=== PATIENT | female | born 1950 | race Caucasian/White ===

== ENCOUNTER → 2021-04-16 13:30 | Outpatient (CLI) | payer MEDICARE, SELFPAY ==
--- NOTE | ~2021-04-16 | MM_ITS ---
EXAMINATION: MM screening [facility] BI w ade HISTORY: Screening mammogram, family history of breast cancer in her sister. TECHNIQUE: Craniocaudal and mediolateral oblique 3-D tomosynthesis images were obtained and synthetic 2-D images were generated. CAD analysis was submitted and interpreted. COMPARISON: 02/12/2019, 02/05/2016, 02/02/2015, 01/27/2014 BREAST PARENCHYMAL COMPOSITION: There are scattered areas of fibroglandular density. FINDINGS: Scattered benign-appearing calcifications are present. There is no evidence of suspicious m ass, calcification, or architectural distortion to suggest malignancy in either breast. There has bee n no suspicious interval change. IMPRESSION: 1. No mammographic evidence of malignancy. 2. Recommend routine screening mammography in one year. BI-RADS Category 2: Benign finding(s). Reviewed, dictated and finalized at location A.
== END ==
PROVIDERS: PCP Family Medicine
DX: Z12.31 Encounter for screening mammogram for malignant neoplasm of breast (principal)
CPT/HCPCS: 77063; 77067

== ENCOUNTER 2021-09-12 02:32 | Day surgery (SDC) | payer MEDICARE, SELFPAY ==
[2021-09-04 14:30] VITALS: BMI 32.3
--- NOTE | 2021-09-11 13:25 | P.HP_ITS ---
History of Present Illness History of Present Illness Consent: Risks, benefits, and alternatives have been discussed and questions answered. Patient agrees to proceed with procedure. Chief complaint: positive cologuard Narrative: Ruth Andrade is a 71 year old female referred for colon cancer screening. A recent Cologuard test was positive Review of Systems Review of Systems: All systems reviewed & are unremarkable except as noted in HPI and below PMFSH Past Medical History Medical History (Reviewed 07/20/21 @ 15:28 by Kary Abarca [facility]) Atrial fibrillation Chemotherapy induced cardiomyopathy Hodgkin lymphoma Hypothyroid Prediabetes Radiation adverse effect Right hemiparesis Stroke (~03/2016) Surgical History Surgical History History of heart artery stent History of nephrectomy, left (~1975) Family History Family History Father , age 82 Carcinoma of colon Mother , age 80 No problems noted. Sibling , age 48 Cancer Sibling No problems noted. Social History Social History Smoking status: Never smoker Alcohol intake: current Alcohol use details: Occasionally Living arrangements: with family Spiritual care concerns: No Meds Home Medications and Allergies Home Medications Medication Instructions Recorded Confirmed Type apixaban 5 mg tablet 5 mg PO BID 10/02/20 09/04/21 History aspirin 81 mg tablet,delayed 81 mg PO DAILY 10/02/20 09/04/21 History release lisinopril 10 mg tablet 10 mg PO DAILY 10/02/20 09/04/21 History multivitamin with minerals-folic 1 tablet PO DAILY 10/02/20 09/04/21 History acid 200 mcg chewable tablet levothyroxine 137 mcg capsule 137 mcg PO DAILY #90 cap 12/08/20 09/04/21 Rx alirocumab 75 mg/mL subcutaneous 75 mg SUBCUT .COMPLEX 07/20/21 09/04/21 History pen injector enoxaparin 80 mg/0.8 mL 75 mg SUBCUT Q12H #8 ml 09/06/21 Rx subcutaneous syringe Allergies Allergy/AdvReac Type Severity Reaction Status Date / Time Penicillins Allergy Mild Rash Verified 09/04/21 14:28 Exam Resp: Auscultation: clear to auscultation bilaterally Cardio: Rate: regular rate Rhythm: regular rhythm GI: GI Palp: Yes Soft to palpation and No Tenderness to palpation present (GI) Assessment and Plan Assessment and plan (1) Colon cancer screening: Code(s): Z12.11 - Encounter for screening for malignant neoplasm of colon Status: Acute Assessment and Plan: Colonoscopy with possible biopsy or polypectomy or cautery or injection of substances.
[2021-09-12 09:27] VITALS: BP 143/64; PULSE 113; RESP 20; TEMP 36.2; O2SAT 93; BMI 31.6
[2021-09-12] MEDS: LACTATED RINGERS 1,000 ML 150 ML IV CONT (09:30)
--- NOTE | 2021-09-12 09:43 | WPDANESEPPF ---
Anes - Initial Pre Proc Eval Procedure: Operation Date: 09/12/21 10:30 Proposed Procedures p Colonoscopy - Christian Garcia MD Date/Time: 09/12/21 09:43 Surgeon: Christian Garcia MD Pre Op Diagnosis: positive cologuard Patient Data Age: 71 Gender: F Height: 1.52 m Weight: 73.4 kg Last Vital Signs Temp 36.2 C L 09/12/21 09:27 Pulse 113 H 09/12/21 09:27 Resp 20 09/12/21 09:27 BP 143/64 H 09/12/21 09:27 Pulse Ox 93 09/12/21 09:27 Allergies Allergy/AdvReac Type Severity Reaction Status Date / Time Penicillins Allergy Mild Rash Verified 09/12/21 09:25 Home Medications Medication Instructions Recorded Confirmed Type apixaban 5 mg tablet 5 mg PO BID 10/02/20 09/12/21 History aspirin 81 mg tablet,delayed 81 mg PO DAILY 10/02/20 09/12/21 History release lisinopril 10 mg tablet 10 mg PO DAILY 10/02/20 09/12/21 History multivitamin with minerals-folic 1 tablet PO DAILY 10/02/20 09/12/21 History acid 200 mcg chewable tablet levothyroxine 137 mcg capsule 137 mcg PO DAILY #90 cap 12/08/20 09/12/21 Rx alirocumab 75 mg/mL subcutaneous 75 mg SUBCUT .COMPLEX 07/20/21 09/12/21 History pen injector enoxaparin 80 mg/0.8 mL 75 mg SUBCUT Q12H #8 ml 09/06/21 09/12/21 Rx subcutaneous syringe Patient hx anesthesia problems: none Family hx anesthesia problems: none Results Review: All pre-operative results and documents have been reviewed as part of the pre-operative evaluation. [facility] Past Medical History Medical History (Updated 09/12/21 @ 09:48 by Teofilo Livingston MD) Atrial fibrillation CAD (coronary artery disease) Chemotherapy induced cardiomyopathy CHF (congestive heart failure) Hodgkin lymphoma Hypothyroid Obesity (BMI 30.0-34.9) Prediabetes Pulmonary fibrosis Radiation adverse effect Right hemiparesis Stroke (~03/2016) left mca - right hemiparesis Surgical History Surgical History History of heart artery stent History of nephrectomy, left (~1975) Family History Family History Father , age 82 Carcinoma of colon Mother , age 80 No problems noted. Sibling , age 48 Cancer Sibling No problems noted. Social History Social History Smoking status: Never smoker Alcohol intake: current Alcohol use details: Occasionally Living arrangements: with family Spiritual care concerns: No Anes - Eval Final PreProcedure Day of Procedure 09/12/21 09:43 Patient weight: obese Heart: regular rate and rhythm Lungs: clear to auscultation and normal air movement Airway: Mallampati scale class II Neurological: alert and oriented Last oral intake: >/= 8 hours ASA classification: IV Emergent: no Anesthetic plan: proceed Anesthesia type and monitoring: general GIVS Results Review: All pre-operative results and documents have been reviewed as part of the pre-operative evaluation. Informed Consent: The patient's anesthetic plan and its attendant risks and benefits were discussed with the patient/family/POA. Questions were solicited and answers provided to the satisfaction of the patient/family/POA.
[2021-09-12 10:33] VITALS: BP 116/53; PULSE 97; RESP 26; O2SAT 96
[2021-09-12 10:43] VITALS: BP 98/66; PULSE 96; RESP 24; O2SAT 96
[2021-09-12 10:53] VITALS: BP 122/91; PULSE 93; RESP 26; O2SAT 97
== END 2021-09-12 11:06 | disposition home or self-care (01) ==
PROVIDERS: PCP Family Medicine; Visit Provider Internal Medicine Gastroenterology
PROC: 0DJD8ZZ Inspection of Lower Intestinal Tract, Via Natural or Artificial Opening Endoscopic (ICD-10-PCS; CPT 45378; principal; 2021-09-12 10:30)
DX: Z12.11 Encounter for screening for malignant neoplasm of colon (principal); K64.8 Other hemorrhoids; R19.5 Other fecal abnormalities; I48.91 Unspecified atrial fibrillation; E03.9 Hypothyroidism, unspecified; R73.03 Prediabetes; I42.7 Cardiomyopathy due to drug and external agent; I69.351 Hemiplegia and hemiparesis following cerebral infarction affecting right dominant side; I50.9 Heart failure, unspecified; Z95.5 Presence of coronary angioplasty implant and graft; Z79.01 Long term (current) use of anticoagulants; Z79.82 Long term (current) use of aspirin; Z85.71 Personal history of Hodgkin lymphoma; Z90.5 Acquired absence of kidney; E66.9 Obesity, unspecified; Z68.31 Body mass index [BMI] 31.0-31.9, adult
CPT/HCPCS: G0121; J2704; J7120

== ENCOUNTER 2021-11-17 21:23 | Inpatient (IN) | payer MEDICARE, SELFPAY ==
[2021-11-17] VITALS (11 sets, daily range): BP systolic 91–124; BP diastolic 56–70; PULSE 68–108; RESP 18–36; TEMP 36.7; O2SAT 92–100
--- NOTE | ~2021-11-17 | XR_ITS ---
XR chest 1V portable DATE: 11/21/2021 06:02 INDICATION: Respiratory failure TECHNIQUE: Portable AP chest on 11/21/2021 at 0505 hours COMPARISON: 11/20/2021 portable AP chest at 0458 hours 11/17/2021 CTA chest FINDINGS: ET tube in satisfactory position 3.4 cm above nehemias. NG tube tip overlies distal stomach. No central lines. Mild elevation of left diaphragm. Patchy bilateral pulmonary infiltrate and/atelectasis, left greater than right, mildly improved since 11/20/2021. No pleural effusion is evident. No pneumothorax.. IMPRESSION: Patchy bilateral pulmonary infiltrate and/atelectasis, left greater than right, mildly im proved since 11/20/2021 Reviewed, dictated and finalized at location A. CELL TESTER IMPRESSION: Patchy bilateral pulmonary infiltrate and/atelectasis, left greater than right, mildly improved since 11/20/2021
--- NOTE | ~2021-11-17 | XR_ITS ---
XR chest PICC line DATE: 11/25/2021 13:45 INDICATION: PICC line placement TECHNIQUE: Portable AP chest on 11/25/2021 at 1340 hours COMPARISON: 11/25/2021 portable AP chest at 0507 hours FINDINGS: ET tube tip is 1.5 cm above nehemias. [place] range is 2-5 cm. NG tube is situated in the distal body of the stomach. Interval placement of left upper extremity PIC catheter, the tip overlying the superior vena cava. Cardiomegaly. There is pulmonary vascular congestion. There are bilateral pulmonary infiltrates invol ving predominantly the mid and lower lung zones, which may be due to pulmonary edema and/or pneumonia . Small pleural effusions are suggested. No pneumothorax. IMPRESSION: Left upper extremity PIC catheter placement, distal tip overlying superior vena cava Tip of ET tube is 1.5 cm above nehemias; ideal range is 2-5 cm Cardiomegaly, pulmonary vascular congestion, bilateral pulmonary infiltrates, small pleural effusions , suggesting congestive heart failure and pulmonary edema; pneumonia is not excluded. Reviewed, dictated and finalized at Location A. Reviewed, dictated and finalized at location A. RAFT ENGINE MECHANIC OVERHAUL IMPRESSION: Left upper extremity PIC catheter placement, distal tip overlying s uperior vena cava Tip of ET tube is 1.5 cm above nehemias; ideal range is 2-5 cm Cardiomegaly, pulmonary vascular congestion, bilateral pulmonary infiltrates, s mall pleural effusions, suggesting congestive heart failure and pulmonary edema ; pneumonia is not excluded.
--- NOTE | ~2021-11-17 | XR_ITS ---
EXAMINATION: XR chest 1V portable EXAM DATE: 11/27/2021 05:32 INDICATION: SOB TECHNIQUE: Portable AP frontal chest x-ray was obtained. Comparison is made to prior examination from 11/26/2021. FINDINGS: Endotracheal tube tip is 1-2 centimeters above the nehemias. There is a nasogastric tube see n with tip collimated off the study, but below the left hemidiaphragm. There is a left-sided PICC mauricio e with tip projecting over the cavoatrial junction. Elevated left hemidiaphragm, evidence of multisegmental left lower lobe collapse. There is bilateral ill-defined pneumonia or edema. Probable small pleural effusions. There is no pneumothorax suspecte d. Cardiac silhouette is enlarged but stable in size compared to prior exam. There are bony degen erative changes. There is no significant interval change compared to prior exam. IMPRESSION: 1. Line and tube(s) in position. 2. Stable airspace disease and other findings as above. Reviewed, dictated and finalized at location A. ICS PROFESSOR
--- NOTE | ~2021-11-17 | XR_ITS ---
EXAMINATION: XR chest 1V portable EXAM DATE: 11/26/2021 06:02 INDICATION: SOB TECHNIQUE: Portable AP frontal chest x-ray was obtained. Comparison is made to prior examination from 11/25/2021. FINDINGS: Endotracheal tube tip is 1-2 centimeters above the nehemias. There is a nasogastric tube see n with tip collimated off the study, but below the left hemidiaphragm. Elevated left hemidiaphragm, evidence of multisegmental left lower lobe collapse. There is bilateral ill-defined pneumonia or edema.. Probable pleural effusions. There is no pneumothorax suspected. The cardiomediastinal silhouette is prominent but magnified on this AP technique. There are bony de generative changes. There is no significant interval change compared to prior exam. IMPRESSION: 1. Line and tube(s) in position. 2. Stable airspace disease and other findings as above. Reviewed, dictated and finalized at location A. T ATTENDANT
--- NOTE | ~2021-11-17 | XR_ITS ---
XR chest 1V portable DATE: 11/22/2021 06:25 INDICATION: Respiratory failure TECHNIQUE: Portable AP chest on 11/22/2021 at 0546 hours COMPARISON: 11/21/2021 portable AP chest 11/17/2021 CTA chest abdomen pelvis FINDINGS: ET tube in satisfactory position 2.3 cm above nehemias. NG tube in stomach. No central lines. Heart size is not optimally evaluated AP projection because of magnification but is likely enlarged. There is persistent elevation of the left leaf of the diaphragm. Patchy bilateral mid and particularly lower lung zone infiltrates are again noted, more prominent on the left. Diffuse osteopenia. IMPRESSION: No significant change since 11/21/2021 Reviewed, dictated and finalized at location A. TRANSPORTER
--- NOTE | ~2021-11-17 | CT_ITS ---
EXAMINATION: CT shoulder RT wo con EXAM DATE: 11/18/2021 13:07 INDICATION: Intubated ICU patient. Dislocation and Humerus Fracture TECHNIQUE: Spiral CT shoulder RT without contrast was performed. Axial, coronal and sagittal images were reviewed. The dose-length product (DLP) for this examination was 1464 mGy-cm (same dose for errol th this and yesterday's chest CT). The exposure was tailored according to patient size (auto mA expos ure control), and iterative reconstruction (ASIR) was used as additional dose reduction technique. Co rrelation is made to chest x-rays from 11/18 and 11/17. FINDINGS: Chest x-ray from yesterday, 11/17 demonstrated an inferiorly displaced humeral head with res pect to the glenoid. At time of subsequent CT scan performed after this, the humeral head has mild in ferior subluxation without cooper dislocation, reduced in appearance compared to prior chest x-ray. On chest x-ray from 11/18 again patient has mild inferior subluxation without cooper dislocation. This in dicates patient has rotator cuff laxity, may be prone to dislocating or subluxing right humeral head. There is no right shoulder fracture. Patchy right basilar atelectasis and may be superimposed pneumo jaime. There is moderate glenohumeral joint osteoarthritis. IMPRESSION: Right rotator cuff ligamentous laxity with mild humeral head inferior subluxation. No fra nk dislocation or fracture. Reviewed, dictated and finalized at location . RCYCLE MAKER IMPRESSION: Right rotator cuff ligamentous laxity with mild humeral head inferi or subluxation. No cooper dislocation or fracture.
--- NOTE | ~2021-11-17 | XR_ITS ---
XR chest 1V portable DATE: 11/23/2021 06:07 INDICATION: Respiratory failure TECHNIQUE: Portable AP chest on 11/23/2021 at 0502 hours COMPARISON: 11/22/2021 portable AP chest FINDINGS: There is pulmonary vascular congestion or redistribution. There are increased bilateral pre dominantly central and lower lung infiltrates since 11/22/2021 suggesting pulmonary edema. Pneumonia i s not excluded. ET tube tip in satisfactory position 2.3 cm above nehemias. NG tube extends well into the stomach. No c entral lines. Diffuse osteopenia. IMPRESSION: Increased congestion and bilateral pulmonary infiltrates since 11/22/2021 Reviewed, dictated and finalized at location A. ECTOR CANNED FOOD RECONDITIONING
--- NOTE | ~2021-11-17 | XR_ITS ---
XR chest ET placement 11/18/2021 04:41 Indication: Reposition endotracheal tube. Respiratory failure. Procedure: AP portable chest Comparison: Comparison to multiple prior studies sequentially, with oldest reviewed study dated 07/2016. Findings: Endotracheal tube tip approximately 1.7 cm above the nehemias. Cardiomegaly. There is bilater al airspace disease which may represent edema or pneumonia. Possible small left effusion. No pneumoth orax. Impression: 1: Stable bilateral airspace disease which may represent edema or pneumonia. Reviewed, dictated and finalized at location A. INE ASSISTANT Impression: 1: Stable bilateral airspace disease which may represent edema or pneumonia.
--- NOTE | ~2021-11-17 | XR_ITS ---
EXAMINATION: XR chest 1V portable EXAM DATE: 11/30/2021 05:49 INDICATION: Acute respiratory failure, pneumonia. TECHNIQUE: Portable AP frontal chest x-ray was obtained. Comparison is made to prior examination from 11/28/2021. FINDINGS: Endotracheal tube tip is 1 centimeters above the nehemias. There is a nasogastric tube seen with tip collimated off the study, but below the left hemidiaphragm. There is a left-sided PICC line with tip projecting over the SVC. Elevated left hemidiaphragm, evidence of multisegmental left lower lobe collapse. There is moderate a mount of bilateral ill-defined pneumonia or edema. Probable small pleural effusions. There is no pn eumothorax suspected. Cardiac silhouette is enlarged but stable in size compared to prior exam. T here are bony degenerative changes. Over last couple of days, suspect some improvement in the edema or pneumonia. IMPRESSION: 1. ET tube 1 cm above nehemias, could be safely retracted 1-2 cm. 2. Probable mild improvement in bilateral edema or pneumonia. Reviewed, dictated and finalized at location A. RSHED MANAGER
--- NOTE | ~2021-11-17 | XR_ITS ---
EXAMINATION: XR chest 1V portable DATE: 12/01/2021 06:03 INDICATION: Acute respiratory failure. Pneumonia. TECHNIQUE: A single frontal view of the chest was obtained. COMPARISON: Chest single view 11/30/2021, chest CT 11/17/2021 FINDINGS: Again seen is chronic elevation of left hemidiaphragm. There are airspace opacities in erickson hilar regions and lower lung zones. There is a diffuse interstitial pattern, consistent with pulmonar y edema. There is a small left pleural effusion. No pneumothorax. Cardiomegaly is noted. The endotrac heal tube tip is 1.3 cm above the nehemias. The nasogastric tube tip is in the stomach. A left upper ex tremity peripherally inserted central venous catheter (PICC) is seen with tip in the superior vena ca va. IMPRESSION: 1. Stable airspace opacities in the perihilar regions and lower lung zones, consistent with atelectas is versus pneumonia. 2. Mild pulmonary edema. 3. Stable small left pleural effusion. 4. Cardiomegaly. Reviewed, dictated and finalized at location A. ISSIONING MANAGER IMPRESSION: 1. Stable airspace opacities in the perihilar regions and lower lung zones, con sistent with atelectasis versus pneumonia. 2. Mild pulmonary edema. 3. Stable small left pleural effusion. 4. Cardiomegaly.
--- NOTE | ~2021-11-17 | XR_ITS ---
XR chest 1V portable DATE: 11/20/2021 06:31 INDICATION: Respiratory failure TECHNIQUE: Portable AP chest on 11/20/2021 at 0458 hours COMPARISON: 11/19/2021 portable AP chest at 0510 hours 11/17/2021 CTA chest abdomen pelvis FINDINGS: ET tube tip in satisfactory position 3.3 cm above nehemias. NG tube extends at least to the d istal stomach, distal tip extending beyond the inferior margin of the radiograph. There is chronic el evation of the left leaf of the diaphragm. There is patchy infiltrate and/atelectasis in the left mid and lower lung zones and to a lesser extent right lower lung. Diffuse osteopenia. IMPRESSION: Bilateral infiltrate and/atelectasis, left greater than right; little interval change sin ce 11/19/2021 Reviewed, dictated and finalized at location A. DER AND CHIEF EXECUTIVE OFFICER IMPRESSION: Bilateral infiltrate and/atelectasis, left greater than right; shawna le interval change since 11/19/2021
--- NOTE | ~2021-11-17 | XR_ITS ---
EXAMINATION: XR chest 1V portable EXAM DATE: 11/28/2021 06:08 INDICATION: SOB TECHNIQUE: Portable AP frontal chest x-ray was obtained. Comparison is made to prior examination from 11/27/2021. FINDINGS: Endotracheal tube tip is 1-2 centimeters above the nehemias. There is a nasogastric tube see n with tip collimated off the study, but below the left hemidiaphragm. Nasogastric tube redundancy is probably external to the patient. There is a left-sided PICC line with tip projecting over the cavoa trial junction. Elevated left hemidiaphragm, evidence of multisegmental left lower lobe collapse. There is moderate a mount of bilateral ill-defined pneumonia or edema. Probable small pleural effusions. There is no pn eumothorax suspected. Cardiac silhouette is enlarged but stable in size compared to prior exam. T here are bony degenerative changes. There is no significant interval change compared to prior exam. IMPRESSION: 1. Line and tube(s) in position. 2. Stable airspace disease and other findings as above. UCT/DEVICE TECHNOLOGIST Reviewed, dictated and finalized at location A.
--- NOTE | ~2021-11-17 | XR_ITS ---
XR chest 1V portable DATE: 11/25/2021 06:27 INDICATION: Respiratory failure TECHNIQUE: Portable AP chest on 11/25/2021 0507 hours COMPARISON: 11/24/2021 portable AP chest FINDINGS: ET tube in satisfactory position. NG tube in distal stomach. No central lines. There is mild elevation left leaf of the diaphragm. There are patchy bilateral pulmonary infiltrates and/or atelectasis. These are likely relatively stable considering relatively low lung volumes on cur rent examination. No pleural effusion or pulmonary vascular congestion is evident. IMPRESSION: Bilateral pulmonary infiltrates; no significant change Reviewed, dictated and finalized at location A. [facility]
--- NOTE | ~2021-11-17 | XR_ITS ---
EXAMINATION: XR chest ET placement INDICATION: Endotracheal and OG tube placement TECHNIQUE: Portable AP chest at 1504 hours COMPARISON: 0744 hours FINDINGS: The endotracheal tube ends approximately 2.2 cm above the nehemias. The OG tube is in the sto mach. There is unchanged elevation of the left hemidiaphragm. Airspace opacities of the lung bases an d left midlung zone persists without significant change. There is no pneumothorax. No definite pleura l effusion is seen. The cardiomediastinal silhouette is stable. IMPRESSION: 1. Endotracheal and OG tubes in adequate position. 2. Airspace opacities of the lung bases and left midlung zone, consistent with atelectasis versus pne umonia. Reviewed, dictated and finalized at location F. TOR MECHANIC APPRENTICE IMPRESSION: 1. Endotracheal and OG tubes in adequate position. 2. Airspace opacities of the lung bases and left midlung zone, consistent with atelectasis versus pneumonia.
--- NOTE | ~2021-11-17 | XR_ITS ---
XR chest 1V portable DATE: 11/19/2021 05:46 INDICATION: Respiratory failure TECHNIQUE: Portable AP chest on 11/19/2021 at 0514 hours COMPARISON: 11/18/2021 portable AP chest at 0436 hours 11/17/2021 CTA chest FINDINGS: ET tube in satisfactory position 3.2 cm above nehemias. NG tube overlies distal stomach. Cardiomegaly. Aortic calcification. There is elevation of the left leaf of diaphragm. There is persistent left perihilar and lower lung i nfiltrate/atelectasis. There is mild patchy infiltrate in the right mid and lower lung zones. IMPRESSION: No significant change since 11/18/2021 Reviewed, dictated and finalized at location A. L PERSONNEL SERVICES DIRECTOR
--- NOTE | ~2021-11-17 | XR_ITS ---
XR chest ET placement 11/18/2021 04:40 Indication: Endotracheal tube placement with repositioning Procedure: AP portable chest Comparison: Comparison to multiple prior studies sequentially, with oldest reviewed study dated 03/2014. Findings: Endotracheal tube tip at the level of the nehemias directed into the right mainstem bronchus. There is patchy bilateral airspace disease, compatible with pneumonia. Possible small left effusion. No pneumothorax. There is dislocation of the right glenohumeral joint with possible humeral head fra cture. Impression: 1: Endotracheal tube at the level of the nehemias directed towards the right mainstem bronchus. 2: Patchy bilateral airspace disease, compatible with pneumonia. 3: Right shoulder dislocation with possible humeral head fracture. Reviewed, dictated and finalized at location A. ER SKATE ASSEMBLER Impression: 1: Endotracheal tube at the level of the nehemias directed towards the right main stem bronchus. 2: Patchy bilateral airspace disease, compatible with pneumonia. 3: Right shoulder dislocation with possible humeral head fracture.
--- NOTE | ~2021-11-17 | XR_ITS ---
XR abdomen NG/feed tube insert INDICATION: Evaluate G-tube position. TECHNIQUE: Limited KUB perform for evaluating NG tube . COMPARISON: No prior studies for comparison. FINDINGS: NG tube tip in the stomach. Moderate retained fecal material in the colon. Visualized bowel gas pattern is unremarkable. IMPRESSION: 1: NG tube tip in the stomach. Reviewed, dictated and finalized at location A. WEB APPLICATION DEVELOPER
--- NOTE | ~2021-11-17 | CT_ITS ---
EXAMINATION: CTA chest PE abdomen pel DATE: 11/18/2021 10:53 FIELD MECHANIC INDICATION: Chest and abdomen pain. Hypoxia. TECHNIQUE: Computed tomographic angiography (CTA) of the chest, abdomen, and pelvis was performed wit hout and with 100 mL Omnipaque-350 intravenous contrast. The dose-length product was 1464.17 mGy-cm. Maximum intensity projection 3D-reconstructions of the aorta and other arteries were constructed by jai herman technologist on a separate workstation. Automated exposure control and iterative reconstruction technique were employed. COMPARISON: None chest dated 11/17/2021. FINDINGS: CHEST CTA: Study is technically adequate without evidence for pulmonary embolism. There is atherosclerosis of th e aorta. There are enlarged pulmonary arteries consistent with pulmonary hypertension. Small pleural effusions. Elevated left diaphragm suggesting phrenic nerve paralysis. Patchy groundglass opacities w ith more focal areas of consolidation in the lower lobes which may represent combination of pneumonia , edema and/or atelectasis. No pneumothorax. ABDOMEN AND PELVIS CTA: The liver, spleen, pancreas, adrenal glands and right kidney are unremarkable. The left kidney is not identified, possibly surgically absent. Nonobstructive bowel gas pattern. Trace free fluid along the liver margin. There is diverticulosis without evidence for diverticulitis. No abnormal pelvic masses or fluid collections. No significant vascular abnormality. No lymphadenopathy. There is accentuated thoracic kyphosis. There is mild scoliosis. IMPRESSION: 1. Patchy mixed airspace disease in airspace consolidation with small effusions. Differential diagnos is includes pneumonia, edema and/or atelectasis. 2: No evidence for pulmonary embolism. 3: Pulmonary arterial hypertension. Reviewed, dictated and finalized at location A. D MECHANIC IMPRESSION: 1. Patchy mixed airspace disease in airspace consolidation with small effusions . Differential diagnosis includes pneumonia, edema and/or atelectasis. 2: No evidence for pulmonary embolism. 3: Pulmonary arterial hypertension.
--- NOTE | ~2021-11-17 | CT_ITS ---
EXAMINATION: CT brain wo con DATE: 11/17/2021 23:07 INDICATION: Altered mental status TECHNIQUE: Computed tomography (CT) of the head was performed without intravenous contrast. The dose- length product was 605.33 mGy-cm. Automated exposure control and iterative reconstruction technique w ere employed. COMPARISON: CT dated 09/11/2016 FINDINGS: Chronic left lacunar infarctions with encephalomalacia. There is compensatory dilation of t he left lateral ventricle. No acute intracranial hemorrhage, infarction, mass or mass effect. No midl ine shift. There is a mucous retention cyst of the right maxillary sinus. There are scattered mild pe riventricular and subcortical white matter changes, most likely related to small vessel ischemic dise ase (microangiopathy). IMPRESSION: 1. No acute intracranial abnormality. Reviewed, dictated and finalized at location A. R JET OPERATOR
--- NOTE | ~2021-11-17 | XR_ITS ---
XR chest 1V portable DATE: 11/24/2021 07:54 INDICATION: Acute respiratory failure TECHNIQUE: Portable AP chest on 11/24/2021 at 0744 hours COMPARISON: 11/23/2021 portable AP chest at 0502 hours 11/22/2021 portable AP chest 11/17/2021 CTA chest FINDINGS: ET tube in satisfactory position approximately 4.1 cm above nehemias. NG tube tip overlies di stal stomach. Cardiomegaly. Aortic arch calcification. There is elevation of the left diaphragm. There is prominent pulmonary infiltrate and/atelectasis in the left mid and both lower lung zones. Diffuse osteopenia. IMPRESSION: Prominent infiltrate and/atelectasis in the left mid and both lower lung zones ET and NG tubes in satisfactory position Reviewed, dictated and finalized at location A. AL RETARDATION AIDE
--- NOTE | ~2021-11-17 | XR_ITS ---
XR chest 1V portable 11/17/2021 22:09 Indication: Shortness of breath Procedure: AP portable chest Comparison: Comparison to multiple prior studies sequentially, with oldest reviewed study dated 02/2014. Findings: Elevated left diaphragm. Diffuse bilateral airspace disease. No significant effusion or pne umothorax. No acute osseous abnormality. There is a right shoulder dislocation. Cardiomegaly. Impression: 1: Diffuse bilateral airspace disease which may represent edema or pneumonia. 2: Cardiomegaly. 3: Chronically elevated left diaphragm suggesting phrenic nerve paralysis. 4: Right shoulder dislocation. Reviewed, dictated and finalized at location A. TECHNICIAN Impression: 1: Diffuse bilateral airspace disease which may represent edema or pneumonia. 2: Cardiomegaly. 3: Chronically elevated left diaphragm suggesting phrenic nerve paralysis. 4: Right shoulder dislocation.
--- NOTE | 2021-11-17 21:36 | ECG_ITS ---
Measurements Intervals [place] Rate: 109 P: 13 MA: 169 QRS: 35 QRSD: 114 T: 131 QT: 336 QTc: 453 Interpretive Statements SINUS TACHYCARDIA FREQUENT ATRIAL PREMATURE COMPLEXES INTRAVENTRICULAR CONDUCTION DELAY NONSPECIFIC ST & T-WAVE ABNORMALITY- DIFFUSE LEADS BASELINE ARTIFACT- I, II, III, AVR, AVL, AVF, V1-V6 ABNORMAL ECG Electronically Signed On 11-18-2021 7:20:39 BOARD HANDLER by Mike Ferguson D.O.
[2021-11-17] MEDS: ALBUTEROL SULFATE NEB 2.5 MG/0.5 ML INH 5 MG INHALATION (22:02)
[2021-11-17] MEDS: IPRATROPIUM BR 0.02% INH SOLN 0.5 MG/2.5 ML VIAL INHALATION (22:02)
--- NOTE | 2021-11-17 22:07 | PC.NURSE ---
Pt here from home. CVA 5 years ago. Uses wc and cane at home; Right sided residual deficits. reports pt began to slur her words approx 36 hours ago. On arrival, unable to obtain pulse ox in triage. In room, pt sats 54% on RA. Placed on NRB at 15L and ED MD notified. Skin cool and cyanotic. After being on NRB with O2, pt able to be assisted in transfer from to bed. Pt currently on neb tx per RT.
[2021-11-17 22:11] LABS: Basophils Percent Auto 0.3 % (0.2-1.2); Eosinophils Percent Auto 0.2 % (0-4.4); Hematocrit 47.1 % (37.0-47.0); Hemoglobin 14.7 g/dL (12.0-15.0); Immature Granulocyte Absolute 0.04 K/mm3 (0.00-0.031); Immature Granulocyte Percent A 0.3 % (0-0.5); Immature Platelet Fraction Pct 7.5 % (0.9-11.2); Lymphocytes Absolute Auto 1.41 K/mm3 (0.9-3.2); Mean Corpuscular HGB Conc 31.2 g/dl (32-36); Mean Corpuscular Hemoglobin 30.9 pg (26-34); Mean Corpuscular Volume 98.9 fl (80-100); Mean Platelet Volume 11.7 fl (7.4-10.4); Monocytes Absolute Auto 1.5 K/mm3 (0.1-0.6); Monocytes Percent Auto 13.1 % (2.6-8.5); Neutrophils Absolute Auto 8.7 K/mm3 (1.3-6.7); Neutrophils Percent Auto 74.1 % (45.5-73.1); Platelet Count Result 203 k/mm3 (150-375); Red Blood Count 4.76 M/mm3 (4.2-5.4); Red Cell Distribution Width 14.1 % (11.5-14.5); White Blood Count 11.8 K/mm3 (4.5-10.0)
[2021-11-17 22:19] LABS: INR 1.4; Prothrombin Time 16.9 Seconds (11.1-14.7)
[2021-11-17 22:20] LABS: Lactic Acid Reflex 1.6 mmol/L (0.7-2.1); Partial Thromboplastin Time 25.8 SECONDS (22.3-36.8)
[2021-11-17 22:22] LABS: Alanine Aminotransferase 16 U/L (4-35); Albumin Level 4.3 g/dL (3.5-5.1); Alkaline Phosphatase 95 U/L (38-126); Anion Gap 10 mmol/L (8-16); Aspartate Amino Transferase 29 U/L (14-36); Blood Urea Nitrogen 29 mg/dL (7-17); Calcium 9.7 mg/dL (8.4-10.2); Carbon Dioxide 34 mmol/L (22-30); Chloride 100 mmol/L (98-107); Estimated CRCL calculation 55 ml/min; Estimated Glomerular Filt Rate 55; Glucose 129 mg/dL (65-110); Magnesium 1.9 mg/dL (1.6-2.3); Potassium 4.3 mmol/L (3.4-5.0); Sodium 144 mmol/L (137-145)
[2021-11-17 22:24] LABS: pH ABG 7.225 (7.350-7.450)
[2021-11-17 22:25] LABS: Base Excess ABG 3.6 mEq/l (+/-2.0); HCO3 ABG 34.4 mEq/l (22.0-26.0); Oxygen Saturation ABG 99.5 % (95.0-100.0); PCO2 ABG 85.1 mmHg (35.0-45.0); PO2 ABG 266.4 mmHg (80.0-100.0)
[2021-11-17 22:26] LABS: Alveolar/Arterial O2 Gradient 251.4 mmHg; Oxygen Content ABG 20.9 %vol (16.0-22.0); Oxyhemoglobin 97.5 % THb (90.0-100.0); Total Hemoglobin 14.8 g/dL (12.0-18.0)
[2021-11-17 22:27] LABS: Fractional Inspired Oxygen 85 %; Modified Allen's Test Pass; PO2 FiO2 Ratio Arterial Blood 3.13 %; Site Drawn RIGHT RADIAL
[2021-11-17 22:28] LABS: Device NON-REBREATHER MASK
[2021-11-17 22:32] LABS: NT Pro B Type Natriuretic Pept 2210 pg/mL (5-100); Troponin I < 0.012 ng/mL (0.000-0.034)
[2021-11-17 22:46] LABS: SARS-CoV-2 RNA PCR Negative
[2021-11-17 23:41] LABS: Influenza A QL RT-PCR Negative (Negative); Influenza B QL RT-PCR Negative (Negative)
[2021-11-17 23:51] LABS: Add Urine Microscopic? YES; Appearance Urine Clear (Clear); Bacteria Urine Trace /hpf; Bilirubin Urine Negative (Negative); Color Urine Yellow (Yellow); Glucose Urine UA Negative (Negative); Ketones Urine Negative (Negative); Leukocyte Esterase Ur Trace LEU/UL (Negative); Mucus Urine Heavy /lpf; Nitrate Urine Negative (Negative); Protein Urine 2+ mg/dL (Negative); Squamous Epithelial Cell Urine Many /hpf (Few); WBC Urine 21-30 /hpf
--- NOTE | 2021-11-17 23:51 | ED.GENADULT ---
HPI - General Adult General Chief complaint: Shortness of Breath/Dyspnea Stated complaint: ?CVA Time Seen by Provider: 11/17/21 21:36 History of Present Illness HPI narrative: Patient is a 71-year-old female who presents the emergency department with chief complaint of shortness of breath. Patient has history of a CVA and the family noticed that she was not acting her usual self over the last couple of days today they decided to check a pulse ox, and noticed that it was in the 50s. They note she also has an ashen blue in color. The patient was also reporting severe shortness of breath. The patient denies chest pain. Related Data Home Medications Medication Instructions Recorded Confirmed apixaban 5 mg tablet 5 mg PO BID 10/02/20 09/12/21 aspirin 81 mg tablet,delayed 81 mg PO DAILY 10/02/20 09/12/21 release lisinopril 10 mg tablet 10 mg PO DAILY 10/02/20 09/12/21 multivitamin with minerals-folic 1 tablet PO DAILY 10/02/20 09/12/21 acid 200 mcg chewable tablet alirocumab 75 mg/mL subcutaneous 75 mg SUBCUT .COMPLEX 07/20/21 09/12/21 pen injector Allergies Allergy/AdvReac Type Severity Reaction Status Date / Time Penicillins Allergy Mild Rash Verified 11/17/21 22:54 Review of Systems Review of Systems: A 10 system review of systems was completed on the patient and is negative except for what is stated in the HPI. Nursing and ancillary documentation was reviewed. [facility] Past Medical History Medical History (Updated 11/18/21 @ 01:42 by Emil Batista MD) CAD (coronary artery disease) (2012) 1 drug-eluting stent to the RCA Chemotherapy induced cardiomyopathy CHF (congestive heart failure) CVA (cerebral vascular accident) (03/2016) Status post tPA and revascularization at [place]. With occlusion of the left internal carotid artery, bifurcation, left MCA status post thrombectomy with persistent occlusion of the A2 segment of the RHONDA Deep vein thrombosis (DVT) of calf muscle vein of left lower extremity (03/2016) Diaphragmatic paralysis Left Hodgkin lymphoma Hypothyroid Secondary to radiation therapy Obesity (BMI 30.0-34.9) Paroxysmal A-fib (04/2016) Prediabetes Pulmonary fibrosis Secondary to radiation therapy Pulmonary hypertension Retinal tear Right hemiparesis Vitreous hemorrhage Surgical History Surgical History (Updated 11/18/21 @ 01:02 by Jayshree Bone DO) History of heart artery stent (09/2013) RCA History of nephrectomy, left (~1975) Family History Family History (Updated 11/18/21 @ 01:05 by Jayshree Bone DO) Father , age 82 Carcinoma of colon Diabetes mellitus Mother , age 80 CHF (congestive heart failure) Dementia Sibling , age 48 Breast cancer Social History Social History (Updated 11/18/21 @ 01:06 by Jayshree Bone DO) Social History: Patient lives at home with her . Primary care physician: Dr. Raymon Aiken Code status: Full code Surrogate decision maker: Smoking status: Never smoker Alcohol intake: current Alcohol use details: Occasionally Spiritual care concerns: No Exam Narrative: GENERAL: ill-appearing, well-nourished, moderate respiratory distress. HEAD: Normocephalic, atraumatic. EYES: PERRLA and EOMI. ENT: Nares clear, no rhinorrhea or epistaxis. Mucous membranes moist. NECK: Supple. CHEST: Clear to auscultation. No respiratory distress. HEART: Regular rate and rhythm. No murmur heard. Normal peripheral pulses. ABDOMEN: Soft, nontender, nondistended, normal active bowel sounds. EXTREMITIES: Normal range of motion. No edema. SKIN: Warm, dry, no rash. Pale, ashen. NEURO: No focal deficits. Alert and oriented x3. PSYCH: Normal mood and affect. Course Course Emergency Course: EKG sinus tachycardia rate [address] elevation or ST depression Vital Signs Vital signs: Vital Signs Temperature 36.7 C 11/17/21 21:41 Pulse Rate 108 H 11/17/21 21:41 Respi
[2021-11-18] VITALS (70 sets, daily range): BP systolic 91–132; BP diastolic 57–106; PULSE 69–125; RESP 14–26; TEMP 36.3–36.9; O2SAT 93–100; BMI 36.6
[2021-11-18 00:01] LABS: Blood Urine Negative (Negative); Specific Grav Ur 1.025 (1.001-1.035)
--- NOTE | 2021-11-18 00:51 | PM.IMHP ---
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 Patient's reports that the patient has been having progressive weakness and slurred speech for the last 36 hours. She has also become progressively more somnolent. He reports that she usually sleeps in a recliner and has snoring respirations at night. She usually ends up sitting somewhat forward with her head falling to the side. He has noticed that she has had increased work of breathing over the last day and a half as well. He denies her having any cough fever or chills. She has not been complaining of any chest pain. She does have chronic edema of her right lower extremity that is unchanged from baseline. He reports that his edema is been present since she had her CVA in 2016. She also has a distant history of a DVT in the soleus and 2016. She is on chronic anticoagulation with Eliquis. He wanted to bring the patient to the hospital it the day before but she had planned with her sister today. He brought her into the ER today after her plans with her sister when she became so somnolent that she could not hold her eyes open. He reports that she is able to ambulate with a walker and has some significant footdrop. She has not had any recent falls or head trauma. She had a CT scan of the brain in the ER which demonstrated no acute process. He had chest x-ray which demonstrated markedly elevated left hemidiaphragm the patient has chronic paralysis of the left hemidiaphragm. CT of the chest abdomen pelvis were performed to rule out possible diaphragmatic hernia. No evidence of diaphragmatic hernia noted but possible bilateral lower lobe pneumonia. The patient's reports the patient does have a CPAP at home but she does not use it as much as she should. She has not had a repeat sleep study in at least 15 years. Review of Systems Review of Systems: ROS unobtainable: Yes unobtainable due to medical condition (Hypercapnic respiratory failure) and unobtainable due to mental status [facility] Past Medical History Medical History (Updated 11/18/21 @ 05:28 by Jayshree Bone DO) CAD (coronary artery disease) (2012) 1 drug-eluting stent to the RCA Chemotherapy induced cardiomyopathy CHF (congestive heart failure) CVA (cerebral vascular accident) (03/2016) Status post tPA and revascularization at [place]. With occlusion of the left internal carotid artery, bifurcation, left MCA status post thrombectomy with persistent occlusion of the A2 segment of the RHONDA Deep vein thrombosis (DVT) of calf muscle vein of left lower extremity (03/2016) Diaphragmatic paralysis Left Hodgkin lymphoma Hypothyroid Secondary to radiation therapy Obesity (BMI 30.0-34.9) Paroxysmal A-fib (04/2016) Prediabetes Pulmonary fibrosis Secondary to radiation therapy Pulmonary hypertension Retinal tear Right hemiparesis Vitreous hemorrhage Surgical History Surgical History (Updated 11/18/21 @ 06:09 by Jayshree Bone DO) History of heart artery stent (09/2013) RCA History of nephrectomy, left (~1975) Due to large kidney stone Family History Family History (Updated 11/18/21 @ 01:05 by Jayshree Bone DO) Father , age 82 Carcinoma of colon Diabetes mellitus Mother , age 80 CHF (congestive heart failure) Dementia Sibling , age 48 Breast cancer Social History Social History (Updated 11/18/21 @ 06:10 by Jayshree Bone DO) Social History: Patient lives at
[2021-11-18 00:53] LABS: Troponin I < 0.012 ng/mL (0.000-0.034)
[2021-11-18] MEDS: methylPREDNISolone SOD SUCC 125 MG VIAL IV PUSH (00:53)
[2021-11-18 01:10] LABS: pH ABG 7.228 (7.350-7.450)
[2021-11-18 01:11] LABS: Base Excess ABG 4.6 mEq/l (+/-2.0); HCO3 ABG 35.3 mEq/l (22.0-26.0); PCO2 ABG 86.7 mmHg (35.0-45.0); PO2 ABG 75.5 mmHg (80.0-100.0)
[2021-11-18 01:12] LABS: Oxygen Saturation ABG 91.7 % (95.0-100.0); Total Hemoglobin 14.3 g/dL (12.0-18.0)
[2021-11-18 01:13] LABS: Oxygen Content ABG 18.4 %vol (16.0-22.0)
[2021-11-18 01:14] LABS: Fractional Inspired Oxygen 40 %; Modified Allen's Test Pass; Oxyhemoglobin 91.3 % THb (90.0-100.0); PO2 FiO2 Ratio Arterial Blood 1.89 %; Site Drawn LEFT RADIAL
[2021-11-18 01:15] LABS: Device NON-INVASIVE VENT; Non-Invasive Expiratory Pressure 6 CMH2O; Non-Invasive Inspiratory Pressure 12 CMH2O; Non-Invasive Vent Rate 12 /MIN
[2021-11-18 03:58] LABS: pH ABG 7.233 (7.350-7.450)
[2021-11-18 03:59] LABS: Alveolar/Arterial O2 Gradient 99.9 mmHg; Base Excess ABG 5.5 mEq/l (+/-2.0); HCO3 ABG 36.5 mEq/l (22.0-26.0); Oxygen Saturation ABG 93.7 % (95.0-100.0); PCO2 ABG 88.5 mmHg (35.0-45.0); PO2 ABG 83.5 mmHg (80.0-100.0); Total Hemoglobin 14.6 g/dL (12.0-18.0)
[2021-11-18 04:00] LABS: Methemoglobin ABG 0.2 %THb (0-1.5); Oxygen Content ABG 19.2 %vol (16.0-22.0); Oxyhemoglobin 93.7 % THb (90.0-100.0); PO2 FiO2 Ratio Arterial Blood 2.09 %; Reduced Hemoglobin 5.5 %THb (0-5.0)
[2021-11-18 04:01] LABS: Fractional Inspired Oxygen 40 %; Modified Allen's Test Pass; Site Drawn LEFT RADIAL
[2021-11-18 04:02] LABS: Device BIPAP
--- NOTE | 2021-11-18 04:05 | PC.NURSE ---
Dr. Bone in room. Plans to intubate pt. 20 etomidate ivp given. 100 succs ivp given. 25 at teeth 7.5 size tube.
--- NOTE | 2021-11-18 04:24 | PC.NURSE ---
2 mg versed given ivp for sedation s/p intubation.
[2021-11-18] MEDS: MIDAZOLAM HCL (*CRX) 2 MG/2 ML VIAL IV PUSH (04:25)
[2021-11-18] MEDS: ROCURONIUM BROMIDE 50 MG/5 ML VIAL IV PUSH (04:37)
--- NOTE | 2021-11-18 04:40 | PC.NURSE ---
23 at teeth. tube pulled back per verbal order from dr livingston
[2021-11-18] MEDS: SODIUM CHLORIDE 0.9% IV 1,000 ML 999 ML IV CONT (04:46)
[2021-11-18] MEDS: MIDAZOLAM 100MG/NS 100ML(*CRX) 100 MG/100 ML BAG IV CONT (04:53)
[2021-11-18] MEDS: FENTANYL 2,500MCG/NS250ML(*CRX 2,500 MCG/250 ML BAG IV CONT (04:59)
--- NOTE | 2021-11-18 05:23 | PC.NURSE ---
pt to ICU 4. Report to german hernandez.
[2021-11-18 05:29] LABS: Alveolar/Arterial O2 Gradient 234.3 mmHg; Base Excess ABG 5.7 mEq/l (+/-2.0); Carboxyhemoglobin 0.9 % THb (0-2.0); Fractional Inspired Oxygen 50 %; HCO3 ABG 27.3 mEq/l (22.0-26.0); Methemoglobin ABG 0.1 %THb (0-1.5); Oxygen Content ABG 19.3 %vol (16.0-22.0); Oxygen Saturation ABG 97.7 % (95.0-100.0); Oxyhemoglobin 96.4 % THb (90.0-100.0); PCO2 ABG 31.1 mmHg (35.0-45.0); PO2 ABG 87.2 mmHg (80.0-100.0); PO2 FiO2 Ratio Arterial Blood 1.74 %; Reduced Hemoglobin 2.6 %THb (0-5.0); Total Hemoglobin 14.2 g/dL (12.0-18.0)
[2021-11-18 05:31] LABS: Device VENTILATOR; Modified Allen's Test Pass; Site Drawn LEFT BRACHIAL; pH ABG 7.562 (7.350-7.450)
[2021-11-18 05:32] LABS: Arterial Blood Gas PEEP 5 cmH2O; Arterial Blood Gas Tidal Volume 350 ml; Arterial Blood Gas Vent Mode CMV; Arterial Blood Gas Ventilator rate 24 /MIN
--- NOTE | 2021-11-18 06:13 | WPDPROCEDUR ---
Procedures Intubation Intubation Date: 11/18/21 Intubation Time: 04:09 Sedative: etomidate Mg given: 20 Paralytic: succinylcholine Mg given: 100 Laryngoscope: fiber optic video scope ET tube size: 7.5 Tube secured depth (cm): 25 Tube secured location: teeth (Upper teeth) Tube placement confirmation: visualized tube passing through cords, equal breath sounds bilaterally, no breath sounds over epigastrium and confirmation by capnometry Patient tolerated procedure: well Intubation complications: none Additional comments: Chest x-ray was ordered to confirm ET tube placement. ET tube is in the right mainstem bronchus. ET tube pulled back 3 cm to 22 at the upper teeth. Repeat chest x-ray demonstrated ET tube 2.2 cm from nehemias.
--- NOTE | 2021-11-18 06:48 | ADMGEN ---
This patient, Ruth Andrade, was admitted to Intensive Care Unit-4 at 0548. Patient/family oriented to hospital policies and general routines including ID bracelet, bed and alarms, visiting hours, pain management, procedures, bathroom and other care routines, personal items, smoking policy, room service/diet, and visiting hours. Information on how to activate the Rapid Response Team has been discussed. Patient/Family are encouraged to report perceived risks to care and to ask questions if they do not understand what they are told or what they should do.
[2021-11-18 07:21] LABS: Hematocrit 43.2 % (37.0-47.0); Hemoglobin 13.7 g/dL (12.0-15.0); Mean Corpuscular HGB Conc 31.7 g/dl (32-36); Mean Corpuscular Hemoglobin 31.1 pg (26-34); Mean Corpuscular Volume 98.2 fl (80-100); Mean Platelet Volume 11.3 fl (7.4-10.4); Platelet Count Result 160 k/mm3 (150-375); Red Cell Distribution Width 13.9 % (11.5-14.5); White Blood Count 9.5 K/mm3 (4.5-10.0)
[2021-11-18 07:40] LABS: Anion Gap 9 mmol/L (8-16); Blood Urea Nitrogen 25 mg/dL (7-17); Calcium 9.2 mg/dL (8.4-10.2); Carbon Dioxide 31 mmol/L (22-30); Chloride 102 mmol/L (98-107); Estimated CRCL calculation 68 ml/min; Estimated Glomerular Filt Rate > 60; Glucose 149 mg/dL (65-110); Potassium 4.3 mmol/L (3.4-5.0); Sodium 142 mmol/L (137-145)
[2021-11-18] MEDS: IPRATROPIUM BR 0.02% INH SOLN 0.5 MG/2.5 ML VIAL INHALATION ×3 (08:50→19:26)
[2021-11-18] MEDS: ALBUTEROL SULFATE NEB 2.5 MG/0.5 ML INH 5 MG INHALATION ×3 (08:50→19:26)
[2021-11-18 09:19] LABS: Alveolar/Arterial O2 Gradient 116.4 mmHg; Base Excess ABG 3.6 mEq/l (+/-2.0); Fractional Inspired Oxygen 30 %; Oxygen Content ABG 19.2 %vol (16.0-22.0); Oxygen Saturation ABG 94.9 % (95.0-100.0); Oxyhemoglobin 94.2 % THb (90.0-100.0); PCO2 ABG 29.2 mmHg (35.0-45.0); PO2 ABG 63.2 mmHg (80.0-100.0); PO2 FiO2 Ratio Arterial Blood 2.11 %; Total Hemoglobin 14.5 g/dL (12.0-18.0)
[2021-11-18 09:22] LABS: Device VENTILATOR; Modified Allen's Test Pass; Site Drawn LEFT RADIAL; pH ABG 7.551 (7.350-7.450)
[2021-11-18 09:23] LABS: Arterial Blood Gas PEEP 5 cmH2O; Arterial Blood Gas Tidal Volume 350 ml; Arterial Blood Gas Vent Mode CMV; Arterial Blood Gas Ventilator rate 18 /MIN
--- NOTE | 2021-11-18 09:24 | WPDCNINT ---
Assessment and Plan Assessment and plan (1) Acute and chronic respiratory failure: Code(s): J96.20 - Acute and chronic respiratory failure, unspecified whether with hypoxia or hypercapnia Status: Acute Assessment and Plan: Acute on chronic Respiratory failure which is multifactorial and is secondary to left diaphragmatic paralysis, pneumonia, obstructive sleep apnea which is untreated and pulmonary fibrosis I reviewed her ABG this morning and decreased her minute ventilation further to rate of 14 tidal volume 300 Continue full mechanical ventilation support to prevent hypoxemia/hypercarbia and end organ damage. ABG and CT reviewed reviewed Continue empiric Rocephin and azithromycin. Add Flagyl to cover for aspiration Low tidal volume ventilation strategy to prevent volutrauma Will attempt SBT when ready to wean. Bronchodilators blood culture sent (2) Pneumonia: Qualifiers: Laterality: bilateral Lung location: lower lobe of lung Pneumonia type: due to unspecified organism Qualified Code(s): J18.9 - Pneumonia, unspecified organism Code(s): J18.9 - Pneumonia, unspecified organism Status: Acute Assessment and Plan: see above (3) Pulmonary fibrosis: Code(s): J84.10 - Pulmonary fibrosis, unspecified Status: Acute Assessment and Plan: see above (4) Obstructive sleep apnea: Code(s): G47.33 - Obstructive sleep apnea (adult) (pediatric) Status: Acute Assessment and Plan: currently intubated (5) Atrial fibrillation: Qualifiers: Atrial fibrillation type: paroxysmal Qualified Code(s): I48.0 - Paroxysmal atrial fibrillation Code(s): I48.91 - Unspecified atrial fibrillation Status: Acute Assessment and Plan: currently in sinus rhythm continue apixaban (6) CAD (coronary artery disease): Onset Date: 2012 Code(s): I25.10 - Atherosclerotic heart disease of [place] coronary artery without angina pectoris Status: Acute Assessment and Plan: continue apixaban resume aspirin (7) Right hemiparesis: Code(s): G81.91 - Hemiplegia, unspecified affecting right dominant side Status: Acute Assessment and Plan: on aspirin and apixaban for past CVA for secondary prevention (8) Hypothyroid: Qualifiers: Hypothyroidism type: acquired Qualified Code(s): E03.9 - Hypothyroidism, unspecified Code(s): E03.9 - Hypothyroidism, unspecified Status: Acute Assessment and Plan: continue levothyroxine check TSH (9) Shoulder dislocation: Code(s): S43.006A - Unspecified dislocation of unspecified shoulder joint, initial encounter Status: Acute Assessment and Plan: chest x-ray show right glenohumeral joint dislocation with humeral head fracture I spoke to patient's and he states that this may be old although he is not sure. Patient has had couple of falls and since she has paralyzed right side and does not uses the right side injury may not have been apparent. Patient has a CT chest abdomen pelvis done last night which is pending. I will wait for the report and see if I can get better picture on that. If unable to, then will repeat a shoulder CT. Treatment will be affected by the fact that patient is paralyzed on right and does not uses her right side. Additional Plan DVT prophylaxis - Pepcid Stress ulcer prophylaxis - apixaban Nutrition - start Tube Feeds Code Status - Full Code I spoke to patient's Mike Andrade by phone. I updated him with patient's current status including findings on x-ray, current treatment plan and answered all their questions. Total Critical Care Time - 35 minutes Due to a high probability of clinically significant, life threatening deterioration, the patient required my highest level of preparedness to intervene emergently and I personally spent this critical care time directly an
[2021-11-18] MEDS: FAMOTIDINE 20 MG/2 ML VIAL IV PUSH ×2 (10:36→20:37)
[2021-11-18] MEDS: LEVOTHYROXINE SODIUM 112 MCG TABLET FEED TUBE (10:37)
[2021-11-18] MEDS: APIXABAN 5 MG TABLET FEED TUBE ×2 (10:37→20:37)
[2021-11-18] MEDS: LEVOTHYROXINE SODIUM 25 MCG TABLET PO (10:37)
[2021-11-18] MEDS: metroNIDAZOLE 250 MG TABLET 500 MG FEED TUBE ×2 (12:48→17:37)
[2021-11-18] MEDS: MINERAL OIL/WHITE PETROLATUM OINTMENT 1 APPLIC EACH EYE ×2 (12:53→20:37)
[2021-11-18] MEDS: SODIUM CHLORIDE 0.9% IV 1,000 ML 75 ML IV CONT (12:57)
--- NOTE | 2021-11-18 14:39 | PM.IMPN ---
Progress Note: A&P Assessment and Plan (1) Acute respiratory failure with hypoxia and hypercapnia: Code(s): J96.01 - Acute respiratory failure with hypoxia; J96.02 - Acute respiratory failure with hypercapnia Status: Acute Assessment and Plan: Patient has acute hypercapnic hypoxic respiratory failure. She likely has some underlying chronic hypercapnic respiratory failure with her untreated obstructive sleep apnea and history of radiation fibrosis. Intubated and ventilator ventilator management by ICU MD (2) Pneumonia: Qualifiers: Laterality: bilateral Lung location: lower lobe of lung Pneumonia type: due to unspecified organism Qualified Code(s): J18.9 - Pneumonia, unspecified organism Code(s): J18.9 - Pneumonia, unspecified organism Status: Acute Assessment and Plan: CT suggest possible pneumonia. Pt currently on Rocephin and azithromycin. Blood cultures have been ordered. 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 Pt brought in for acute respiratory failure secondary to pneumonia. Intubated on ventilator in ICU. Admitted this morning. Review of Systems Review of Systems: ROS unobtainable: Yes unobtainable due to medical condition Exam Const: General: other (pt is intubated ) Resp: Other: Bilateral crackles at bases Cardio: Rate: regular rate Rhythm: regular rhythm GI: Inspection: normal to inspection GI Palp: No abdominal tenderness, No Guarding due to palpation present (GI) and No Hepatomegaly present Auscultation: normal bowel sounds Objective Data Vital Signs Vital Signs: Vital Signs - 24 hr 11/17/21 21:41 11/17/21 22:02 11/17/21 22:03 Temperature 36.7 C Pulse Rate 108 H 90 100 Respiratory Rate 36 H 25 H Blood Pressure 91/56 L Pulse Oximetry 99 96 11/17/21 22:45 11/17/21 22:48 11/17/21 22:52 Temperature 36.7 C Pulse Rate 94 68 Respiratory Rate 24 H 20 Blood Pressure 124/70 Pulse Oximetry 97 96 100 11/17/21 23:17 11/17/21 23:32 11/17/21 23:45 Temperature Pulse Rate 97 95 Respiratory Rate 23 H 18 Blood Pressure Pulse Oximetry 93 92 95 11/17/21 23:46 11/17/21 23:47 11/18/21 00:04 Temperature Pulse Rate 93 95 92 Respiratory Rate 24 H 21 H 20 Blood Pressure 112/62 Pulse Oximetry 96 98 94 11/18/21 00:31 11/18/21 00:32 11/18/21 00:59 Temperature Pulse Rate 96 97 86 Respiratory Rate 21 H 23 H 21 H Blood Pressure 117/59 L Pulse Oximetry 99 11/18/21 01:00 11/18/21 01:01 11/18/21 01:19 Temperature Pulse Rate 86 84 82 Respiratory Rate 22 H 22 H 22 H Blood Pressure 112/61 Pulse Oximetry 98 99 97 11/18/21 01:30 11/18/21 01:43 11/18/21 01:45 Temperature Pulse Rate 79 84 89 Respiratory Rate 24 H 24 H 20 Blood Pressure Pulse Oximetry 98 99 98 11/18/21 01:46 11/18/21 01:47 11/18/21 02:04 Temperature Pulse Rate 89 89 Respiratory Rate 23 H 16 Blood Pressure 94/60 L Pulse Oximetry 98 98 98 11/18/21 02:28 11/18/21 02:29 11/18/21 02:30 Temperature Pulse Rate 93 90 93 Respiratory Rate 26 H 25 H 24 H Blood Pressure 101/63 Pulse Oximetry 97 97 97 11/18/21 02:48 11/18/21 03:00 11/18/21 03:01 Temperature Pulse Rate 96 83 82 Respiratory Rate 24 H 24 H 24 H Blood Pressure 96/59 L Pulse Oximetry 93 97 98 11/18/21 03:02 11/18/21 03:15 11/18/21 03:16 Temperature Pulse Rate 83 82 81 Respiratory Rate 24 H 24 H 24 H Blood Pressure 93/57 L Pulse Oximetry 97 96 97 11/18/21 03:17 11/18/21 03:30
[2021-11-19] VITALS (33 sets, daily range): BP systolic 85–123; BP diastolic 55–78; PULSE 67–105; RESP 14–43; TEMP 35.7–36.9; O2SAT 78–99; BMI 36.6
[2021-11-19] MEDS: metroNIDAZOLE 250 MG TABLET 500 MG FEED TUBE ×4 (00:18→16:45)
[2021-11-19] MEDS: SODIUM CHLORIDE 0.9% IV 1,000 ML 75 ML IV CONT (00:54)
[2021-11-19 05:27] LABS: Alveolar/Arterial O2 Gradient 96.2 mmHg; Base Excess ABG 2.2 mEq/l (+/-2.0); Carboxyhemoglobin 0.6 % THb (0-2.0); Fractional Inspired Oxygen 30 %; HCO3 ABG 27.3 mEq/l (22.0-26.0); Methemoglobin ABG 0.1 %THb (0-1.5); Oxygen Content ABG 19.3 %vol (16.0-22.0); Oxygen Saturation ABG 93.2 % (95.0-100.0); Oxyhemoglobin 92.2 % THb (90.0-100.0); PCO2 ABG 43.9 mmHg (35.0-45.0); PO2 ABG 66.1 mmHg (80.0-100.0); Reduced Hemoglobin 7.1 %THb (0-5.0); Total Hemoglobin 14.9 g/dL (12.0-18.0); pH ABG 7.411 (7.350-7.450)
[2021-11-19 05:43] LABS: Device VENTILATOR; Modified Allen's Test Pass; Site Drawn RIGHT RADIAL
[2021-11-19 05:44] LABS: Arterial Blood Gas PEEP 5 cmH2O; Arterial Blood Gas Tidal Volume 300 ml; Arterial Blood Gas Vent Mode CMV; Arterial Blood Gas Ventilator rate 14 /MIN
[2021-11-19] MEDS: LEVOTHYROXINE SODIUM 25 MCG TABLET PO (07:43)
[2021-11-19] MEDS: LEVOTHYROXINE SODIUM 112 MCG TABLET FEED TUBE (07:43)
[2021-11-19] MEDS: FAMOTIDINE 20 MG/2 ML VIAL IV PUSH ×2 (07:44→20:30)
[2021-11-19] MEDS: APIXABAN 5 MG TABLET FEED TUBE ×2 (07:44→20:30)
[2021-11-19] MEDS: MINERAL OIL/WHITE PETROLATUM OINTMENT 1 APPLIC EACH EYE ×2 (07:45→20:30)
[2021-11-19] MEDS: methylPREDNISolone SOD SUCC 125 MG VIAL 60 MG IV PUSH (07:45)
[2021-11-19 07:52] LABS: Hematocrit 44.9 % (37.0-47.0); Hemoglobin 14.6 g/dL (12.0-15.0); Mean Corpuscular HGB Conc 32.5 g/dl (32-36); Mean Corpuscular Hemoglobin 30.8 pg (26-34); Mean Corpuscular Volume 94.7 fl (80-100); Mean Platelet Volume 11.8 fl (7.4-10.4); Platelet Count Result 184 k/mm3 (150-375); Red Blood Count 4.74 M/mm3 (4.2-5.4); White Blood Count 14.4 K/mm3 (4.5-10.0)
[2021-11-19 08:00] LABS: Anion Gap 9 mmol/L (8-16); Blood Urea Nitrogen 30 mg/dL (7-17); Calcium 9.2 mg/dL (8.4-10.2); Carbon Dioxide 29 mmol/L (22-30); Chloride 102 mmol/L (98-107); Estimated CRCL calculation 61 ml/min; Estimated Glomerular Filt Rate > 60; Glucose 112 mg/dL (65-110); Potassium 3.8 mmol/L (3.4-5.0); Sodium 140 mmol/L (137-145)
[2021-11-19 08:03] LABS: Alanine Aminotransferase 17 U/L (4-35); Albumin Level 3.5 g/dL (3.5-5.1); Alkaline Phosphatase 82 U/L (38-126); Anion Gap 9 mmol/L (8-16); Aspartate Amino Transferase 25 U/L (14-36); Bilirubin,Total 1.1 mg/dL (0.2-1.3); Blood Urea Nitrogen 30 mg/dL (7-17); Calcium 9.3 mg/dL (8.4-10.2); Carbon Dioxide 29 mmol/L (22-30); Chloride 102 mmol/L (98-107); Estimated CRCL calculation 61 ml/min; Estimated Glomerular Filt Rate > 60; Glucose 111 mg/dL (65-110); Magnesium 1.9 mg/dL (1.6-2.3); Potassium 3.9 mmol/L (3.4-5.0); Sodium 140 mmol/L (137-145)
[2021-11-19] MEDS: ALBUTEROL SULFATE NEB 2.5 MG/0.5 ML INH 5 MG INHALATION ×3 (08:54→20:15)
[2021-11-19] MEDS: IPRATROPIUM BR 0.02% INH SOLN 0.5 MG/2.5 ML VIAL INHALATION ×3 (08:55→20:15)
[2021-11-19 09:54] LABS: Alveolar/Arterial O2 Gradient 82.5 mmHg; Base Excess ABG 2.5 mEq/l (+/-2.0); Fractional Inspired Oxygen 30 %; HCO3 ABG 29.3 mEq/l (22.0-26.0); Oxygen Content ABG 19.4 %vol (16.0-22.0); Oxygen Saturation ABG 92.6 % (95.0-100.0); Oxyhemoglobin 91.3 % THb (90.0-100.0); PCO2 ABG 53.7 mmHg (35.0-45.0); PO2 ABG 68.3 mmHg (80.0-100.0); PO2 FiO2 Ratio Arterial Blood 2.28 %; Total Hemoglobin 15.1 g/dL (12.0-18.0); pH ABG 7.355 (7.350-7.450)
[2021-11-19 09:55] LABS: Site Drawn LEFT RADIAL
[2021-11-19 09:56] LABS: Arterial Blood Gas PEEP 5 cmH2O; Arterial Blood Gas Pressure Support 5 cmH2O; Arterial Blood Gas Vent Mode SPONTANEOUS; Device VENTILATOR; Modified Allen's Test Pass
[2021-11-19 09:59] LABS: Expiratory Pressure 6 cmH2O; Inspiratory Pressure 16 cmH2O
--- NOTE | 2021-11-19 11:11 | WPDINTPN ---
Progress Note: A&P Assessment and Plan (1) Acute and chronic respiratory failure: Code(s): J96.20 - Acute and chronic respiratory failure, unspecified whether with hypoxia or hypercapnia Status: Acute Assessment and Plan: Acute on chronic Respiratory failure which is multifactorial and is secondary to left diaphragmatic paralysis, pneumonia, obstructive sleep apnea which is untreated and pulmonary fibrosis I performed a weaning trial this morning but patient failed due to very low tidal volumes which were less than 200 cc and eventual increase in out of 6 PI Continue full mechanical ventilation support to prevent hypoxemia/hypercarbia and end organ damage. ABG and CT reviewed reviewed Continue empiric Rocephin, Flagyl and azithromycin to cover for aspiration and community-acquired pneumonia Low tidal volume ventilation strategy to prevent volutrauma daily SBT attempts Bronchodilators blood culture sent and pending (2) Pneumonia: Qualifiers: Laterality: bilateral Lung location: lower lobe of lung Pneumonia type: due to unspecified organism Qualified Code(s): J18.9 - Pneumonia, unspecified organism Code(s): J18.9 - Pneumonia, unspecified organism Status: Acute Assessment and Plan: see above (3) Pulmonary fibrosis: Code(s): J84.10 - Pulmonary fibrosis, unspecified Status: Acute Assessment and Plan: see above (4) Obstructive sleep apnea: Code(s): G47.33 - Obstructive sleep apnea (adult) (pediatric) Status: Acute Assessment and Plan: currently intubated (5) Atrial fibrillation: Qualifiers: Atrial fibrillation type: paroxysmal Qualified Code(s): I48.0 - Paroxysmal atrial fibrillation Code(s): I48.91 - Unspecified atrial fibrillation Status: Acute Assessment and Plan: currently in sinus rhythm continue apixaban (6) CAD (coronary artery disease): Onset Date: 2012 Code(s): I25.10 - Atherosclerotic heart disease of [place] coronary artery without angina pectoris Status: Acute Assessment and Plan: continue apixaban and aspirin (7) Right hemiparesis: Code(s): G81.91 - Hemiplegia, unspecified affecting right dominant side Status: Acute Assessment and Plan: on aspirin and apixaban for past CVA for secondary prevention (8) Hypothyroid: Qualifiers: Hypothyroidism type: acquired Qualified Code(s): E03.9 - Hypothyroidism, unspecified Code(s): E03.9 - Hypothyroidism, unspecified Status: Acute Assessment and Plan: continue levothyroxine normal TSH (9) Shoulder dislocation: Code(s): S43.006A - Unspecified dislocation of unspecified shoulder joint, initial encounter Status: Acute Assessment and Plan: chest x-ray showed right glenohumeral joint dislocation with humeral head fracture I spoke to patient's and he states that this may be old although he is not sure. Patient has had couple of falls and since she has paralyzed right side and does not uses the right side injury may not have been apparent. Shoulder CT showed Right rotator cuff ligamentous laxity with mild humeral head inferior subluxation. No cooper dislocation or fracture. Additional Plan DVT prophylaxis - Pepcid Stress ulcer prophylaxis - apixaban Nutrition - continue Tube Feeds Code Status - Full Code I spoke to patient's Mike Andrade by phone. I updated him with patient's current status including findings on x-ray, current treatment plan and answered all their questions. Total Critical Care Time - 32 minutes Due to a high probability of clinically significant, life threatening deterioration, the patient required my highest level of preparedness to intervene emergently and I personally spent this critical care time directly and personally managing the patient. This critical care time included obtaining a history; examinin
[2021-11-19 11:16] LABS: Alveolar/Arterial O2 Gradient 79.8 mmHg; Base Excess ABG 0.3 mEq/l (+/-2.0); Fractional Inspired Oxygen 30 %; HCO3 ABG 27.5 mEq/l (22.0-26.0); Methemoglobin ABG 0.3 %THb (0-1.5); Oxygen Saturation ABG 92.5 % (95.0-100.0); Oxyhemoglobin 90.1 % THb (90.0-100.0); PCO2 ABG 54.5 mmHg (35.0-45.0); PO2 ABG 70.1 mmHg (80.0-100.0); PO2 FiO2 Ratio Arterial Blood 2.34 %; Reduced Hemoglobin 8.6 %THb (0-5.0); pH ABG 7.321 (7.350-7.450)
[2021-11-19 11:17] LABS: Arterial Blood Gas Vent Mode SPONTANEOUS; Device VENTILATOR; Modified Allen's Test Pass; Site Drawn LEFT RADIAL
[2021-11-19 11:18] LABS: Arterial Blood Gas PEEP 5 cmH2O; Arterial Blood Gas Pressure Support 5 cmH2O
[2021-11-19] MEDS: MIDAZOLAM 100MG/NS 100ML(*CRX) 100 MG/100 ML BAG IV CONT (16:04)
[2021-11-19] MEDS: FENTANYL 2,500MCG/NS250ML(*CRX 2,500 MCG/250 ML BAG 7.5 MCG IV CONT (16:04)
[2021-11-20] VITALS (26 sets, daily range): BP systolic 100–149; BP diastolic 52–81; PULSE 67–97; RESP 14–20; TEMP 36.4–36.9; O2SAT 92–99
[2021-11-20] MEDS: ALBUTEROL SULFATE NEB 2.5 MG/0.5 ML INH 5 MG INHALATION ×3 (01:55→19:57)
[2021-11-20] MEDS: IPRATROPIUM BR 0.02% INH SOLN 0.5 MG/2.5 ML VIAL INHALATION ×3 (01:55→19:57)
[2021-11-20] MEDS: metroNIDAZOLE 250 MG TABLET 500 MG FEED TUBE ×4 (03:35→17:15)
[2021-11-20 04:11] LABS: Hemoglobin 12.9 g/dL (12.0-15.0); Mean Corpuscular HGB Conc 33.1 g/dl (32-36); Mean Corpuscular Hemoglobin 31.6 pg (26-34); Mean Corpuscular Volume 95.6 fl (80-100); Mean Platelet Volume 11.8 fl (7.4-10.4); Platelet Count Result 159 k/mm3 (150-375); Red Blood Count 4.08 M/mm3 (4.2-5.4); Red Cell Distribution Width 14.2 % (11.5-14.5); White Blood Count 10.4 K/mm3 (4.5-10.0)
[2021-11-20 04:21] LABS: Alanine Aminotransferase 14 U/L (4-35); Albumin Level 2.9 g/dL (3.5-5.1); Alkaline Phosphatase 66 U/L (38-126); Anion Gap 8 mmol/L (8-16); Aspartate Amino Transferase 18 U/L (14-36); Bilirubin,Total 0.6 mg/dL (0.2-1.3); Blood Urea Nitrogen 35 mg/dL (7-17); Calcium 8.7 mg/dL (8.4-10.2); Carbon Dioxide 26 mmol/L (22-30); Chloride 104 mmol/L (98-107); Estimated CRCL calculation 76 ml/min; Estimated Glomerular Filt Rate > 60; Glucose 175 mg/dL (65-110); Magnesium 1.9 mg/dL (1.6-2.3); Potassium 3.8 mmol/L (3.4-5.0); Sodium 138 mmol/L (137-145)
[2021-11-20 05:09] LABS: Alveolar/Arterial O2 Gradient 61.9 mmHg; Base Excess ABG -0.2 mEq/l (+/-2.0); Carboxyhemoglobin 0.5 % THb (0-2.0); Fractional Inspired Oxygen 28 %; HCO3 ABG 25.9 mEq/l (22.0-26.0); Methemoglobin ABG 0.2 %THb (0-1.5); Oxygen Content ABG 19.1 %vol (16.0-22.0); Oxygen Saturation ABG 95.4 % (95.0-100.0); Oxyhemoglobin 94.2 % THb (90.0-100.0); PCO2 ABG 47.9 mmHg (35.0-45.0); PO2 ABG 81.2 mmHg (80.0-100.0); Reduced Hemoglobin 5.1 %THb (0-5.0); Total Hemoglobin 14.4 g/dL (12.0-18.0); pH ABG 7.351 (7.350-7.450)
[2021-11-20 05:15] LABS: Arterial Blood Gas PEEP 5 cmH2O; Arterial Blood Gas Tidal Volume 300 ml; Arterial Blood Gas Vent Mode CMV; Arterial Blood Gas Ventilator rate 14 /MIN; Device VENTILATOR; Modified Allen's Test Unable to perform; Site Drawn LEFT RADIAL
[2021-11-20] MEDS: LEVOTHYROXINE SODIUM 112 MCG TABLET FEED TUBE (06:46)
[2021-11-20] MEDS: LEVOTHYROXINE SODIUM 25 MCG TABLET PO (06:46)
[2021-11-20] MEDS: APIXABAN 5 MG TABLET FEED TUBE ×2 (08:46→23:04)
[2021-11-20] MEDS: methylPREDNISolone SOD SUCC 125 MG VIAL 60 MG IV PUSH (08:46)
[2021-11-20] MEDS: MINERAL OIL/WHITE PETROLATUM OINTMENT 1 APPLIC EACH EYE ×2 (08:49→23:04)
[2021-11-20] MEDS: FAMOTIDINE 20 MG/2 ML VIAL IV PUSH ×2 (09:34→23:04)
[2021-11-20 10:08] LABS: Base Excess ABG 1.3 mEq/l (+/-2.0); Fractional Inspired Oxygen 40 %; HCO3 ABG 31.6 mEq/l (22.0-26.0); Oxygen Content ABG 20.7 %vol (16.0-22.0); Oxygen Saturation ABG 96.2 % (95.0-100.0); PO2 ABG 101.3 mmHg (80.0-100.0); PO2 FiO2 Ratio Arterial Blood 2.53 %; Total Hemoglobin 15.4 g/dL (12.0-18.0)
--- NOTE | 2021-11-20 10:50 | WPDINTPN ---
Progress Note: A&P Assessment and Plan (1) Acute and chronic respiratory failure: Code(s): J96.20 - Acute and chronic respiratory failure, unspecified whether with hypoxia or hypercapnia Status: Acute Assessment and Plan: Acute on chronic Respiratory failure which is multifactorial and is secondary to left diaphragmatic paralysis, pneumonia, obstructive sleep apnea which is untreated and pulmonary fibrosis I performed a weaning trial this morning but patient failed due to very low tidal volumes which were less than 200 cc on 8/5 PSV and ABG showed hypercarbia and respiratory acidosis. 7./101/31. Patient placed back on full support Continue full mechanical ventilation support to prevent hypoxemia/hypercarbia and end organ damage. ABG and CT reviewed reviewed Continue empiric Rocephin, Flagyl and azithromycin to cover for aspiration and community-acquired pneumonia Low tidal volume ventilation strategy to prevent volutrauma daily SBT attempts Bronchodilators blood culture sent and pending (2) Pneumonia: Qualifiers: Laterality: bilateral Lung location: lower lobe of lung Pneumonia type: due to unspecified organism Qualified Code(s): J18.9 - Pneumonia, unspecified organism Code(s): J18.9 - Pneumonia, unspecified organism Status: Acute Assessment and Plan: see above (3) Pulmonary fibrosis: Code(s): J84.10 - Pulmonary fibrosis, unspecified Status: Acute Assessment and Plan: see above (4) Obstructive sleep apnea: Code(s): G47.33 - Obstructive sleep apnea (adult) (pediatric) Status: Acute Assessment and Plan: currently intubated (5) Atrial fibrillation: Qualifiers: Atrial fibrillation type: paroxysmal Qualified Code(s): I48.0 - Paroxysmal atrial fibrillation Code(s): I48.91 - Unspecified atrial fibrillation Status: Acute Assessment and Plan: currently in sinus rhythm continue apixaban (6) CAD (coronary artery disease): Onset Date: 2012 Code(s): I25.10 - Atherosclerotic heart disease of [place] coronary artery without angina pectoris Status: Acute Assessment and Plan: continue apixaban and aspirin (7) Right hemiparesis: Code(s): G81.91 - Hemiplegia, unspecified affecting right dominant side Status: Acute Assessment and Plan: on aspirin and apixaban for past CVA for secondary prevention (8) Hypothyroid: Qualifiers: Hypothyroidism type: acquired Qualified Code(s): E03.9 - Hypothyroidism, unspecified Code(s): E03.9 - Hypothyroidism, unspecified Status: Acute Assessment and Plan: continue levothyroxine normal TSH (9) Shoulder dislocation: Code(s): S43.006A - Unspecified dislocation of unspecified shoulder joint, initial encounter Status: Acute Assessment and Plan: chest x-ray showed right glenohumeral joint dislocation with humeral head fracture I spoke to patient's and he states that this may be old although he is not sure. Patient has had couple of falls and since she has paralyzed right side and does not uses the right side injury may not have been apparent. Shoulder CT showed Right rotator cuff ligamentous laxity with mild humeral head inferior subluxation. No cooper dislocation or fracture. (10) UTI (urinary tract infection): Code(s): N39.0 - Urinary tract infection, site not specified Status: Acute Assessment and Plan: Her urine culture is growing Klebsiella which is sensitive to Rocephin. Additional Plan DVT prophylaxis - Pepcid Stress ulcer prophylaxis - apixaban Nutrition - continue Tube Feeds Code Status - Full Code Total Critical Care Time - 30 minutes Due to a high probability of clinically significant, life threatening deterioration, the patient required my highest level of preparedness to intervene emergently and I personally spent this crit
--- NOTE | 2021-11-20 12:30 | PCNFU ---
Nutrition Follow-Up Complete: Inadequate oral intake related to mechanical ventilation as evidenced by need for tube feedings. Goal: Patient to meet estimated nutritional needs. Pt is progressing towards goal. No new goal at this time. Pt current nutrition is Vital AF 1.2 at 55 mls per hour over 22 hours per day with a 30 ml water flush q4. Last recorded weight is 99.8 kg. Bowel Motility: No bowel movement documented. Labs Reviewed: Alb 2.9, BUN 35, Glu 175 Meds Noted: Albuterol, Eliquis, Zithromax, Synthroid, Atrovent Neb, Flagyl, Versed Skin: No skin break down at this time. WNL. Additional Notes: Patient remains on mechanical vent and tube feeding of Vital AF 1.2 at 55 mls per hour over 22 hours per day with a 30 ml water flush q4. In total patient is receiving 1452 calories, 91 grams of protein and 1161 mls of water. Pt. is tolerating well per nursing. No propofol at this time. Monitor pt. labs. medications, weight and oral intake every Friday and Friday.
[2021-11-20 15:00] LABS: pH ABG 7.225 (7.350-7.450)
[2021-11-20 15:01] LABS: Arterial Blood Gas Vent Mode SPONTANEOUS; Device VENTILATOR; Modified Allen's Test Pass; PCO2 ABG 78.2 mmHg (35.0-45.0); Site Drawn RIGHT RADIAL
[2021-11-20 15:02] LABS: Arterial Blood Gas PEEP 5 cmH2O; Arterial Blood Gas Pressure Support 8 cmH2O
[2021-11-20] MEDS: ALBUMIN HUMAN 5% 25 GM/500 ML BTL IV CONT (15:19)
[2021-11-20] MEDS: ALBUMIN HUMAN 25% 25 GM/100 ML 100 ML IVPB (23:45)
[2021-11-21] VITALS (32 sets, daily range): BP systolic 85–140; BP diastolic 48–81; PULSE 80–114; RESP 14–25; TEMP 36.4–36.9; O2SAT 91–96
[2021-11-21] MEDS: metroNIDAZOLE 250 MG TABLET 500 MG FEED TUBE ×4 (01:12→18:05)
[2021-11-21] MEDS: ALBUTEROL SULFATE NEB 2.5 MG/0.5 ML INH 5 MG INHALATION ×4 (01:52→20:12)
[2021-11-21] MEDS: IPRATROPIUM BR 0.02% INH SOLN 0.5 MG/2.5 ML VIAL INHALATION ×4 (01:52→20:12)
[2021-11-21] MEDS: FENTANYL 2,500MCG/NS250ML(*CRX 2,500 MCG/250 ML BAG IV CONT (04:53)
[2021-11-21] MEDS: MIDAZOLAM 100MG/NS 100ML(*CRX) 100 MG/100 ML BAG IV CONT (04:54)
[2021-11-21 05:02] LABS: Alveolar/Arterial O2 Gradient 37.1 mmHg; Base Excess ABG 0.9 mEq/l (+/-2.0); Carboxyhemoglobin 0.2 % THb (0-2.0); Fractional Inspired Oxygen 25 %; HCO3 ABG 28.2 mEq/l (22.0-26.0); Methemoglobin ABG 0.2 %THb (0-1.5); Oxygen Content ABG 16.7 %vol (16.0-22.0); Oxygen Saturation ABG 93.2 % (95.0-100.0); Oxyhemoglobin 92.8 % THb (90.0-100.0); PO2 ABG 73.5 mmHg (80.0-100.0); PO2 FiO2 Ratio Arterial Blood 2.94 %; Reduced Hemoglobin 6.8 %THb (0-5.0); Total Hemoglobin 12.8 g/dL (12.0-18.0); pH ABG 7.312 (7.350-7.450)
[2021-11-21 05:03] LABS: Site Drawn LEFT RADIAL
[2021-11-21 05:04] LABS: Arterial Blood Gas PEEP 5 cmH2O; Arterial Blood Gas Vent Mode CMV; Arterial Blood Gas Ventilator rate 14 /MIN; Device VENTILATOR; Modified Allen's Test Pass
[2021-11-21 05:05] LABS: Arterial Blood Gas Tidal Volume 300 ml
[2021-11-21 06:56] LABS: Hematocrit 39.2 % (37.0-47.0); Hemoglobin 12.5 g/dL (12.0-15.0); Mean Corpuscular HGB Conc 31.9 g/dl (32-36); Mean Corpuscular Hemoglobin 30.7 pg (26-34); Mean Corpuscular Volume 96.3 fl (80-100); Mean Platelet Volume 12.5 fl (7.4-10.4); Platelet Count Result 155 k/mm3 (150-375); Red Blood Count 4.07 M/mm3 (4.2-5.4); Red Cell Distribution Width 14.3 % (11.5-14.5); White Blood Count 9.6 K/mm3 (4.5-10.0)
[2021-11-21 07:03] LABS: Alanine Aminotransferase 14 U/L (4-35); Alkaline Phosphatase 59 U/L (38-126); Anion Gap 11 mmol/L (8-16); Aspartate Amino Transferase 22 U/L (14-36); Bilirubin,Total 0.6 mg/dL (0.2-1.3); Blood Urea Nitrogen 55 mg/dL (7-17); Calcium 9.1 mg/dL (8.4-10.2); Carbon Dioxide 27 mmol/L (22-30); Chloride 102 mmol/L (98-107); Estimated CRCL calculation 55 ml/min; Estimated Glomerular Filt Rate 55; Glucose 101 mg/dL (65-110); Magnesium 2.3 mg/dL (1.6-2.3); Potassium 4.3 mmol/L (3.4-5.0); Sodium 140 mmol/L (137-145)
[2021-11-21] MEDS: LEVOTHYROXINE SODIUM 25 MCG TABLET PO (07:47)
[2021-11-21] MEDS: LEVOTHYROXINE SODIUM 112 MCG TABLET FEED TUBE (07:47)
[2021-11-21] MEDS: ALBUMIN HUMAN 25% 25 GM/100 ML 100 ML IVPB ×3 (07:57→18:04)
[2021-11-21] MEDS: SODIUM CHLORIDE 0.9% IV 500 ML IV CONT (08:51)
[2021-11-21] MEDS: MINERAL OIL/WHITE PETROLATUM OINTMENT 1 APPLIC EACH EYE ×2 (08:53→20:02)
[2021-11-21] MEDS: APIXABAN 5 MG TABLET FEED TUBE ×2 (08:53→20:02)
[2021-11-21] MEDS: FAMOTIDINE 20 MG/2 ML VIAL IV PUSH ×2 (08:53→20:02)
[2021-11-21] MEDS: methylPREDNISolone SOD SUCC 125 MG VIAL 60 MG IV PUSH (09:01)
[2021-11-21] MEDS: SODIUM CHLORIDE 0.9% IV 1,000 ML 100 ML IV CONT (09:47)
--- NOTE | 2021-11-21 09:56 | WPDINTPN ---
Progress Note: A&P Assessment and Plan (1) Acute and chronic respiratory failure: Code(s): J96.20 - Acute and chronic respiratory failure, unspecified whether with hypoxia or hypercapnia Status: Acute Assessment and Plan: Acute on chronic Respiratory failure which is multifactorial and is secondary to left diaphragmatic paralysis, pneumonia, obstructive sleep apnea which is untreated and pulmonary fibrosis 11/20 I performed a weaning trial this morning but patient failed due to very low tidal volumes which were less than 200 cc on 8 PSV and ABG showed hypercarbia and respiratory acidosis. 7.22//101/31. 11/21 patient again failed a trial this morning due to very low tidal volumes and then drop in saturation. Patient placed back on full support. Will waitt some more time off sedation and pressure support Continue full mechanical ventilation support to prevent hypoxemia/hypercarbia and end organ damage. ABG and chest x-ray reviewed reviewed Continue empiric Rocephin, Flagyl and azithromycin to cover for aspiration and community-acquired pneumonia Low tidal volume ventilation strategy to prevent volutrauma daily SBT attempts Bronchodilators blood culture sent and negative will now (2) Pneumonia: Qualifiers: Laterality: bilateral Lung location: lower lobe of lung Pneumonia type: due to unspecified organism Qualified Code(s): J18.9 - Pneumonia, unspecified organism Code(s): J18.9 - Pneumonia, unspecified organism Status: Acute Assessment and Plan: see above (3) Diaphragmatic paralysis: Code(s): J98.6 - Disorders of diaphragm Status: Acute (4) Pulmonary fibrosis: Code(s): J84.10 - Pulmonary fibrosis, unspecified Status: Acute Assessment and Plan: see above (5) Obstructive sleep apnea: Code(s): G47.33 - Obstructive sleep apnea (adult) (pediatric) Status: Acute Assessment and Plan: currently intubated (6) UTI (urinary tract infection): Code(s): N39.0 - Urinary tract infection, site not specified Status: Acute Assessment and Plan: Her urine culture is growing Klebsiella which is sensitive to Rocephin. (7) Atrial fibrillation: Qualifiers: Atrial fibrillation type: paroxysmal Qualified Code(s): I48.0 - Paroxysmal atrial fibrillation Code(s): I48.91 - Unspecified atrial fibrillation Status: Acute Assessment and Plan: currently in sinus rhythm continue apixaban (8) CAD (coronary artery disease): Onset Date: 2012 Code(s): I25.10 - Atherosclerotic heart disease of [place] coronary artery without angina pectoris Status: Acute Assessment and Plan: continue apixaban and aspirin (9) Right hemiparesis: Code(s): G81.91 - Hemiplegia, unspecified affecting right dominant side Status: Acute Assessment and Plan: on aspirin and apixaban for past CVA for secondary prevention (10) Hypothyroid: Qualifiers: Hypothyroidism type: acquired Qualified Code(s): E03.9 - Hypothyroidism, unspecified Code(s): E03.9 - Hypothyroidism, unspecified Status: Acute Assessment and Plan: continue levothyroxine normal TSH (11) Shoulder dislocation: Code(s): S43.006A - Unspecified dislocation of unspecified shoulder joint, initial encounter Status: Acute Assessment and Plan: chest x-ray showed right glenohumeral joint dislocation with humeral head fracture I spoke to patient's and he states that this may be old although he is not sure. Patient has had couple of falls and since she has paralyzed right side and does not uses the right side injury may not have been apparent. Shoulder CT showed Right rotator cuff ligamentous laxity with mild humeral head inferior subluxation. No cooper dislocation or fracture. (12) Oliguria: Code(s): R34 - Anuria and oliguria Status: Acute Asses
--- NOTE | 2021-11-21 11:49 | PCFNICU ---
ICU Rounding Note: Pt current nutrition is Vital AF 1.2 at 55 ml/hr over 22 hours. Last recorded weight is 97 kg-stable. Bowel Motility:No BM reported. Recommend starting Miralax. Labs Reviewed:BUN 55 Meds Noted:Albuterol, Eliquis, Zithromax, Synthroid, Atrovent Neb, Flagyl, Versed Skin: edematous Additional Notes: Patient remains on mechanical vent and tube feedings of Vital AF 1.2 at 55 ml/hr and tolerating per nursing. Failed breathing trial today per MD. Agree with diet orders at this time. Following daily in ICU rounds. Monitor pt. labs. medications, weight and oral intake every Friday and Friday.
--- NOTE | 2021-11-21 16:06 | PM.IMPN ---
Progress Note: A&P Assessment and Plan (1) Acute and chronic respiratory failure: Code(s): J96.20 - Acute and chronic respiratory failure, unspecified whether with hypoxia or hypercapnia Status: Acute Assessment and Plan: Patient presents with acute on chronic respiratory failure which is multifactorial related to PNA, left diaphragmatic paralysis, untreated LESLY and pulmonary fibrosis. She was intubated on 11/16/21. Patient again failed a trial this morning due to very low tidal volumes and then drop in saturation. Patient placed back on full support. Continue to hold sedation. Continue empiric abx for aspiration and community-acquired pneumonia. Low tidal volume ventilation strategy to prevent volutrauma. Appreciate intenisvist input. Discussed. (2) Pneumonia: Qualifiers: Laterality: bilateral Lung location: lower lobe of lung Pneumonia type: due to unspecified organism Qualified Code(s): J18.9 - Pneumonia, unspecified organism Code(s): J18.9 - Pneumonia, unspecified organism Status: Acute Assessment and Plan: As above (3) Diaphragmatic paralysis: Code(s): J98.6 - Disorders of diaphragm Status: Acute Assessment and Plan: As above (4) Pulmonary fibrosis: Code(s): J84.10 - Pulmonary fibrosis, unspecified Status: Acute Assessment and Plan: As above (5) Obstructive sleep apnea: Code(s): G47.33 - Obstructive sleep apnea (adult) (pediatric) Status: Acute Assessment and Plan: Patient is noncomplinat with NIV at home. Currently intubated. Discuss when able (6) UTI (urinary tract infection): Code(s): N39.0 - Urinary tract infection, site not specified Status: Acute Assessment and Plan: Her urine culture is growing Klebsiella which is sensitive to Rocephin. Continue the same (7) Atrial fibrillation: Qualifiers: Atrial fibrillation type: paroxysmal Qualified Code(s): I48.0 - Paroxysmal atrial fibrillation Code(s): I48.91 - Unspecified atrial fibrillation Status: Acute Assessment and Plan: Patient monitored on tele and currently in sinus rhythm. Not on rate controlling agents now or at home. Continue apixaban (8) CAD (coronary artery disease): Onset Date: 2012 Code(s): I25.10 - Atherosclerotic heart disease of [place] coronary artery without angina pectoris Status: Acute Assessment and Plan: Stable. Continue apixaban (9) Right hemiparesis: Code(s): G81.91 - Hemiplegia, unspecified affecting right dominant side Status: Acute Assessment and Plan: Stable. Was on aspirin and apixaban on admission but not statin. Apixaban resumed. ASA remains on hold. Resume when able. Add Lipitor when able. Will need PT/OT after extubation (10) Hypothyroid: Qualifiers: Hypothyroidism type: acquired Qualified Code(s): E03.9 - Hypothyroidism, unspecified Code(s): E03.9 - Hypothyroidism, unspecified Status: Acute Assessment and Plan: TSH normal in June 2021. Continue levothyroxine. (11) Shoulder dislocation: Code(s): S43.006A - Unspecified dislocation of unspecified shoulder joint, initial encounter Status: Acute Assessment and Plan: CXR showed right glenohumeral joint dislocation with humeral head fracture. Shoulder CT 11/18 showed right rotator cuff ligamentous laxity with mild humeral head inferior subluxation but no cooper dislocation or fracture. (12) Oliguria: Code(s): R34 - Anuria and oliguria Status: Acute Assessment and Plan: Patient overall volume overloaded as she has significant extremity edema. Patient given 25% albumin and small amount of IV fluids. Monitor urine output. Renal function is stable at this time Subjective Date/time seen: 11/21/21 16:06 Interval history: 71yo female with hx of pAFib, radiation fibrosis du
[2021-11-22] VITALS (31 sets, daily range): BP systolic 120–154; BP diastolic 68–90; PULSE 75–107; RESP 14–25; TEMP 36.4–36.9; O2SAT 91–98
[2021-11-22] MEDS: metroNIDAZOLE 250 MG TABLET 500 MG FEED TUBE ×4 (00:28→17:47)
[2021-11-22] MEDS: ALBUTEROL SULFATE NEB 2.5 MG/0.5 ML INH 5 MG INHALATION ×4 (02:32→20:58)
[2021-11-22] MEDS: IPRATROPIUM BR 0.02% INH SOLN 0.5 MG/2.5 ML VIAL INHALATION ×4 (02:32→20:58)
[2021-11-22 04:53] LABS: Hematocrit 40.6 % (37.0-47.0); Hemoglobin 12.6 g/dL (12.0-15.0); Mean Corpuscular Hemoglobin 30.7 pg (26-34); Platelet Count Result 146 k/mm3 (150-375); Red Cell Distribution Width 14.6 % (11.5-14.5)
[2021-11-22 05:15] LABS: Alveolar/Arterial O2 Gradient 39.3 mmHg; Base Excess ABG -0.6 mEq/l (+/-2.0); Carboxyhemoglobin 0.4 % THb (0-2.0); Fractional Inspired Oxygen 30 %; HCO3 ABG 28.9 mEq/l (22.0-26.0); Methemoglobin ABG 0.3 %THb (0-1.5); Oxygen Content ABG 17.9 %vol (16.0-22.0); Oxygen Saturation ABG 94.9 % (95.0-100.0); Oxyhemoglobin 94.7 % THb (90.0-100.0); Reduced Hemoglobin 4.6 %THb (0-5.0); Total Hemoglobin 13.4 g/dL (12.0-18.0)
[2021-11-22 05:17] LABS: pH ABG 7.221 (7.350-7.450)
[2021-11-22 05:18] LABS: Arterial Blood Gas Vent Mode CMV; Arterial Blood Gas Ventilator rate 14 /MIN; Device VENTILATOR; Modified Allen's Test Unable to perform; Site Drawn LEFT RADIAL
[2021-11-22 05:18] LABS: Alanine Aminotransferase 22 U/L (4-35); Albumin Level 4.6 g/dL (3.5-5.1); Alkaline Phosphatase 49 U/L (38-126); Anion Gap 11 mmol/L (8-16); Aspartate Amino Transferase 25 U/L (14-36); Bilirubin,Total 0.6 mg/dL (0.2-1.3); Blood Urea Nitrogen 41 mg/dL (7-17); Calcium 9.2 mg/dL (8.4-10.2); Carbon Dioxide 29 mmol/L (22-30); Chloride 102 mmol/L (98-107); Estimated CRCL calculation 67 ml/min; Estimated Glomerular Filt Rate > 60; Glucose 158 mg/dL (65-110); Magnesium 2.4 mg/dL (1.6-2.3); Potassium 4.7 mmol/L (3.4-5.0); Sodium 142 mmol/L (137-145)
[2021-11-22 05:19] LABS: Arterial Blood Gas PEEP 5 cmH2O; Arterial Blood Gas Tidal Volume 300 ml
[2021-11-22] MEDS: LEVOTHYROXINE SODIUM 25 MCG TABLET PO (05:33)
[2021-11-22] MEDS: LEVOTHYROXINE SODIUM 112 MCG TABLET FEED TUBE (05:33)
[2021-11-22] MEDS: methylPREDNISolone SOD SUCC 125 MG VIAL 60 MG IV PUSH (08:15)
[2021-11-22] MEDS: FAMOTIDINE 20 MG/2 ML VIAL IV PUSH ×2 (08:16→20:43)
[2021-11-22] MEDS: APIXABAN 5 MG TABLET FEED TUBE ×2 (08:16→20:43)
--- NOTE | 2021-11-22 10:11 | WPDINTPN ---
Progress Note: A&P Assessment and Plan (1) Acute and chronic respiratory failure: Code(s): J96.20 - Acute and chronic respiratory failure, unspecified whether with hypoxia or hypercapnia Status: Acute Assessment and Plan: Acute on chronic Respiratory failure which is multifactorial and is secondary to left diaphragmatic paralysis, pneumonia, obstructive sleep apnea which is untreated and pulmonary fibrosis 11/20 I performed a weaning trial this morning but patient failed due to very low tidal volumes which were less than 200 cc on 06/07 PSV and ABG showed hypercarbia and respiratory acidosis. 7.22//101/31. 11/21 patient again failed a trial this morning due to very low tidal volumes and then drop in saturation. Patient placed back on full support. ABG reviewed and respiratory rate increased to 18 to compensate for respiratory acidosis and hypercarbia Will try again pressure support today Continue full mechanical ventilation support to prevent hypoxemia/hypercarbia and end organ damage. Chest x-ray reviewed reviewed Continue empiric Rocephin, Flagyl and azithromycin to cover for UTI, aspiration and community-acquired pneumonia Low tidal volume ventilation strategy to prevent volutrauma daily SBT attempts Bronchodilators blood culture sent and negative will now (2) Pneumonia: Qualifiers: Laterality: bilateral Lung location: lower lobe of lung Pneumonia type: due to unspecified organism Qualified Code(s): J18.9 - Pneumonia, unspecified organism Code(s): J18.9 - Pneumonia, unspecified organism Status: Acute Assessment and Plan: see above (3) Diaphragmatic paralysis: Code(s): J98.6 - Disorders of diaphragm Status: Acute (4) Pulmonary fibrosis: Code(s): J84.10 - Pulmonary fibrosis, unspecified Status: Acute Assessment and Plan: see above (5) Obstructive sleep apnea: Code(s): G47.33 - Obstructive sleep apnea (adult) (pediatric) Status: Acute Assessment and Plan: currently intubated (6) UTI (urinary tract infection): Code(s): N39.0 - Urinary tract infection, site not specified Status: Acute Assessment and Plan: Her urine culture is growing Klebsiella which is sensitive to Rocephin. (7) Atrial fibrillation: Qualifiers: Atrial fibrillation type: paroxysmal Qualified Code(s): I48.0 - Paroxysmal atrial fibrillation Code(s): I48.91 - Unspecified atrial fibrillation Status: Acute Assessment and Plan: currently in sinus rhythm continue apixaban (8) CAD (coronary artery disease): Onset Date: 2012 Code(s): I25.10 - Atherosclerotic heart disease of [place] coronary artery without angina pectoris Status: Acute Assessment and Plan: continue apixaban and aspirin (9) Right hemiparesis: Code(s): G81.91 - Hemiplegia, unspecified affecting right dominant side Status: Acute Assessment and Plan: on aspirin and apixaban for past CVA for secondary prevention (10) Hypothyroid: Qualifiers: Hypothyroidism type: acquired Qualified Code(s): E03.9 - Hypothyroidism, unspecified Code(s): E03.9 - Hypothyroidism, unspecified Status: Acute Assessment and Plan: continue levothyroxine normal TSH (11) Shoulder dislocation: Code(s): S43.006A - Unspecified dislocation of unspecified shoulder joint, initial encounter Status: Acute Assessment and Plan: chest x-ray showed right glenohumeral joint dislocation with humeral head fracture I spoke to patient's and he states that this may be old although he is not sure. Patient has had couple of falls and since she has paralyzed right side and does not uses the right side injury may not have been apparent. Shoulder CT showed Right rotator cuff ligamentous laxity with mild humeral head inferior subluxation. No cooper dislocation or fracture. (12) Olig
--- NOTE | 2021-11-22 11:05 | PCFNICU ---
ICU Rounding Note: Pt current nutrition is Vital AF 1.2 at 55 ml/hr over 22 hours. Last recorded weight is 80.4 kg, down from 99.8 kg on admit. Bowel Motility:+BM reported 11/21 Labs Reviewed:Mg 2.4,BUN 41, Glu 158 Meds Noted:Fentanyl, Versed, Rocephin, Atrovent, Synthroid, Solu Medrol, Flagyl, Eliquis. Skin: Edematous Additional Notes: Patient remains on mechanical vent and tube feedings of Vital AF 1.2 at 55 ml/hr over 22 hours. Free water flush 30 ml q 4 hours. Agree with diet orders. Following daily in ICU rounds. Monitor pt. labs. medications, weight and oral intake every Friday and Friday..
[2021-11-22 12:11] LABS: Glucose Point of Care 198 mg/dl (65-105)
--- NOTE | 2021-11-22 14:24 | PM.IMPN ---
Progress Note: A&P Assessment and Plan (1) Acute and chronic respiratory failure: Code(s): J96.20 - Acute and chronic respiratory failure, unspecified whether with hypoxia or hypercapnia Status: Acute Assessment and Plan: Patient presents with acute on chronic respiratory failure which is multifactorial in nature related to PNA, left diaphragmatic paralysis, untreated LESLY and pulmonary fibrosis. She was intubated on 11/18/21. Patient remains on mechanical ventilation with attempts at weaning trials. Continue to hold sedation. Continue empiric abx for aspiration and community-acquired pneumonia. Low tidal volume ventilation strategy to prevent volutrauma. Appreciate coating mixer input. (2) Pneumonia: Qualifiers: Laterality: bilateral Lung location: lower lobe of lung Pneumonia type: due to unspecified organism Qualified Code(s): J18.9 - Pneumonia, unspecified organism Code(s): J18.9 - Pneumonia, unspecified organism Status: Acute Assessment and Plan: CXR on admission showing diffuse bilateral airspace disease which may represent edema or pneumonia. CTA showing no PE but does show patchy mixed airspace disease and airspace consolidation with small effusions. No evidence of pulmonary fibrosis. Currently on treatment for PNA. As above (3) Diaphragmatic paralysis: Code(s): J98.6 - Disorders of diaphragm Status: Acute Assessment and Plan: CXR also showing chronically elevated left diaphragm suggesting phrenic nerve paralysis. This is complicating her ability to be extubated. As above (4) Obstructive sleep apnea: Code(s): G47.33 - Obstructive sleep apnea (adult) (pediatric) Status: Acute Assessment and Plan: Patient is noncomplinat with NIV at home. Currently intubated. Will discuss the benefits of complinace when able. (5) UTI (urinary tract infection): Code(s): N39.0 - Urinary tract infection, site not specified Status: Acute Assessment and Plan: Her urine culture is growing Klebsiella which is sensitive to Rocephin. Continue Rocephin. (6) Atrial fibrillation: Qualifiers: Atrial fibrillation type: paroxysmal Qualified Code(s): I48.0 - Paroxysmal atrial fibrillation Code(s): I48.91 - Unspecified atrial fibrillation Status: Acute Assessment and Plan: Patient monitored on tele and currently in sinus rhythm. Not on rate controlling agents now or at home. Continue apixaban. (7) CAD (coronary artery disease): Onset Date: 2012 Code(s): I25.10 - Atherosclerotic heart disease of [place] coronary artery without angina pectoris Status: Acute Assessment and Plan: Hx reviewed showing she has CAD with 1 drug-eluting stent to the RCA in 2012. Stable. No Echo here. EKG showing nonspecific ST-T wave changes diffuse leads. Not on ASA or beta renato or statin. Continue apixaban. Resume ASA (8) Right hemiparesis: Code(s): G81.91 - Hemiplegia, unspecified affecting right dominant side Status: Acute Assessment and Plan: Hx of CVA s/p tPA and revascularization at [place] with occlusion of the left internal carotid artery status post thrombectomy with persistent occlusion of the A2 segment of the RHONDA. Stable. Was on aspirin and apixaban on admission but not statin. Apixaban resumed. ASA remains on hold. Resume ASA and add Lipitor. She will need PT/OT after extubation (9) Hypothyroid: Qualifiers: Hypothyroidism type: acquired Qualified Code(s): E03.9 - Hypothyroidism, unspecified Code(s): E03.9 - Hypothyroidism, unspecified Status: Acute Assessment and Plan: TSH normal in June 2021. Continue levothyroxine. Check TSH (10) Shoulder dislocation: Code(s): S43.006A - Unspecified dislocation of unspecified shoulder joint, initial encounter Status: Acute Assessment and Plan: CXR showed possible right gl
[2021-11-22] MEDS: ASPIRIN 81 MG CHEWABLE TABLET FEED TUBE (17:47)
[2021-11-22] MEDS: MINERAL OIL/WHITE PETROLATUM OINTMENT 1 APPLIC EACH EYE (20:42)
[2021-11-23] VITALS (30 sets, daily range): BP systolic 119–158; BP diastolic 66–103; PULSE 77–131; RESP 14–21; TEMP 36.9–37.1; O2SAT 93–97
--- NOTE | 2021-11-23 | ECHO_ITS ---
Patient Info Name: Ruth Andrade Age: 71 years : 1950 Gender: Female Ht: 65 in Wt: 177 lbs BSA: 1.94 m2 HR: 87 bpm BP: 136 / 73 mmHg Heart Rhythm: Sinus Arrhythmia Technical Quality: Fair Exam Date: 11/23/2021 7:49 AM Exam Location: [facility] Patient Status: Inpatient Admit Date: 11/18/2021 Staff Ordering Physician: Emil Kumar MD Diagnostic Cardiac Sonographer: Petty Thomas RDCS Attending Provider: Jayshree Bone DO Exam Type: CA echo doppler color flow Study Info Indications - cad Complete two-dimensional, color flow and Doppler transthoracic echocardiogram is performed. Summary 1. Complete two-dimensional, color flow and Doppler transthoracic echocardiogram is performed. 2. Left ventricular chamber dimension is normal. 3. Left ventricular systolic function is normal, estimated at 55-60%. 4. The left ventricular diastolic function is grade III diastolic dysfunction. 5. E/e' 11 is mildly elevated. 6. There is moderate aortic valve sclerosis. 7. There is mild aortic valve regurgitation. 8. There is mild aortic valve stenosis based on a peak velocity of 134 cm/s, mean gradient of 3 mmHg, and aortic valve area of 1.8 cm2. 9. The mitral valve has mildly calcified annulus. 10. There is mild mitral valve regurgitation. 11. No pulmonary hypertension, estimated pulmonary arterial systolic pressure is 23 mmHg. Left Ventricle E/e' 11 is mildly elevated. Left ventricular chamber dimension is normal. Left ventricular systolic function is normal, estimated at 55-60%. The left ventricular diastolic function is grade III diastolic dysfunction. Right Ventricle Right ventricular systolic function is normal based on normal TAPSE 1.7 cm. Right ventricular chamber dimension is not well visualized. Left Atria Left atrial chamber dimension is normal. Right Atria Right atrial chamber dimension is normal. Aortic Valve The aortic valve is not well seen. The aortic valve is trileaflet. There is mild aortic valve stenosis based on a peak velocity of 134 cm/s, mean gradient of 3 mmHg, and aortic valve area of 1.8 cm2. There is moderate aortic valve sclerosis. There is mild aortic valve regurgitation. Pulmonic Valve The pulmonic valve is not well visualized. Mitral Valve The mitral valve has mildly calcified annulus. There is no mitral valve stenosis. There is mild mitral valve regurgitation. Tricuspid Valve There is no tricuspid valve regurgitation. No pulmonary hypertension, estimated pulmonary arterial systolic pressure is 23 mmHg. Pericardium/Pleural There is no pericardial effusion. Inferior Vena Cava Inferior vena cava is not well visualized. Aorta The aortic root size at the sinus of Valsalva is normal. Left Ventricular Outflow Tract Name Value Normal LVOT 2D LVOT Diameter 2.0 cm LVOT Doppler LVOT Peak Gradient 2 mmHg LVOT Mean Gradient 1 mmHg LVOT VTI 13 cm LVOT VTI/AV VTI Ratio 0.6 LVOT Stroke Volume 39 ml
[2021-11-23] MEDS: metroNIDAZOLE 250 MG TABLET 500 MG FEED TUBE ×3 (00:10→13:35)
[2021-11-23] MEDS: IPRATROPIUM BR 0.02% INH SOLN 0.5 MG/2.5 ML VIAL INHALATION ×2 (01:33→20:26)
[2021-11-23] MEDS: ALBUTEROL SULFATE NEB 2.5 MG/0.5 ML INH 5 MG INHALATION ×2 (01:33→20:27)
[2021-11-23 04:38] LABS: Alveolar/Arterial O2 Gradient 44.5 mmHg; Base Excess ABG 4.6 mEq/l (+/-2.0); Carboxyhemoglobin 0.2 % THb (0-2.0); Fractional Inspired Oxygen 25 %; HCO3 ABG 31.4 mEq/l (22.0-26.0); Methemoglobin ABG 0.3 %THb (0-1.5); Oxygen Content ABG 16.6 %vol (16.0-22.0); Oxygen Saturation ABG 92.2 % (95.0-100.0); Oxyhemoglobin 92.2 % THb (90.0-100.0); PCO2 ABG 56.5 mmHg (35.0-45.0); PO2 ABG 66.7 mmHg (80.0-100.0); PO2 FiO2 Ratio Arterial Blood 2.67 %; Reduced Hemoglobin 7.3 %THb (0-5.0); Total Hemoglobin 12.8 g/dL (12.0-18.0); pH ABG 7.363 (7.350-7.450)
[2021-11-23 04:39] LABS: Arterial Blood Gas PEEP 5 cmH2O; Arterial Blood Gas Tidal Volume 300 ml; Arterial Blood Gas Vent Mode CMV; Arterial Blood Gas Ventilator rate 18 /MIN; Device VENTILATOR; Modified Allen's Test Pass; Site Drawn LEFT RADIAL
[2021-11-23 04:40] LABS: Hemoglobin 12.3 g/dL (12.0-15.0); Mean Corpuscular HGB Conc 31.5 g/dl (32-36); Mean Corpuscular Hemoglobin 30.8 pg (26-34); Mean Corpuscular Volume 97.5 fl (80-100); Mean Platelet Volume 12.2 fl (7.4-10.4); Platelet Count Result 147 k/mm3 (150-375); Red Cell Distribution Width 14.5 % (11.5-14.5); White Blood Count 10.6 K/mm3 (4.5-10.0)
[2021-11-23 04:56] LABS: Alanine Aminotransferase 22 U/L (4-35); Alkaline Phosphatase 56 U/L (38-126); Anion Gap 8 mmol/L (8-16); Aspartate Amino Transferase 19 U/L (14-36); Bilirubin,Total 0.6 mg/dL (0.2-1.3); Blood Urea Nitrogen 44 mg/dL (7-17); Calcium 9.4 mg/dL (8.4-10.2); Carbon Dioxide 30 mmol/L (22-30); Chloride 100 mmol/L (98-107); Estimated CRCL calculation 81 ml/min; Estimated Glomerular Filt Rate > 60; Glucose 169 mg/dL (65-110); Magnesium 2.4 mg/dL (1.6-2.3); Phosphorus 2.6 mg/dL (2.5-4.5); Sodium 138 mmol/L (137-145)
[2021-11-23] MEDS: LEVOTHYROXINE SODIUM 112 MCG TABLET FEED TUBE (05:12)
[2021-11-23] MEDS: LEVOTHYROXINE SODIUM 25 MCG TABLET PO (05:12)
[2021-11-23 05:41] LABS: Thyroid Stimulating Hormone Reflex 0.879 uIU/mL (0.465-4.68)
[2021-11-23] MEDS: ASPIRIN 81 MG CHEWABLE TABLET FEED TUBE (08:45)
[2021-11-23] MEDS: FUROSEMIDE INJ 40 MG/4 ML VIAL IV PUSH (08:45)
[2021-11-23] MEDS: MINERAL OIL/WHITE PETROLATUM OINTMENT 1 APPLIC EACH EYE ×2 (08:46→21:38)
[2021-11-23] MEDS: FAMOTIDINE 20 MG/2 ML VIAL IV PUSH ×2 (08:46→21:38)
[2021-11-23] MEDS: APIXABAN 5 MG TABLET FEED TUBE ×2 (08:46→21:38)
[2021-11-23] MEDS: methylPREDNISolone SOD SUCC 125 MG VIAL 60 MG IV PUSH (08:46)
[2021-11-23] MEDS: ATORVASTATIN 20 MG TABLET FEED TUBE (08:46)
--- NOTE | 2021-11-23 11:49 | WPDINTPN ---
Progress Note: A&P Assessment and Plan (1) Acute and chronic respiratory failure: Code(s): J96.20 - Acute and chronic respiratory failure, unspecified whether with hypoxia or hypercapnia Status: Acute Assessment and Plan: Acute on chronic Respiratory failure which is multifactorial and is secondary to left diaphragmatic paralysis, pneumonia, obstructive sleep apnea which is untreated and pulmonary fibrosis, also secondary to altered mental status from possible UTI Patient has been failing weaning trials for the last [address] patient on ASV mode of ventilation Discontinued sedation medications this morning, will place patient on SBT to evaluate for extubation Chest x-ray shows increased congestion and bilateral pulmonary infiltrates, -will give Lasix Continue empiric Rocephin, Flagyl and azithromycin to cover for UTI, aspiration and community-acquired pneumonia Low tidal volume ventilation strategy to prevent volutrauma daily SBT attempts Bronchodilators Blood cultures are negative x2, urine cultures growing Klebsiella pneumoniae which is pansensitive (2) Pneumonia: Qualifiers: Laterality: bilateral Lung location: lower lobe of lung Pneumonia type: due to unspecified organism Qualified Code(s): J18.9 - Pneumonia, unspecified organism Code(s): J18.9 - Pneumonia, unspecified organism Status: Acute Assessment and Plan: see above (3) Diaphragmatic paralysis: Code(s): J98.6 - Disorders of diaphragm Status: Acute Assessment and Plan: This could be a reason why patient is failing her weaning trials (4) Pulmonary fibrosis: Code(s): J84.10 - Pulmonary fibrosis, unspecified Status: Acute Assessment and Plan: see above (5) Obstructive sleep apnea: Code(s): G47.33 - Obstructive sleep apnea (adult) (pediatric) Status: Acute Assessment and Plan: currently intubated (6) UTI (urinary tract infection): Code(s): N39.0 - Urinary tract infection, site not specified Status: Acute Assessment and Plan: Her urine culture is growing Klebsiella which is sensitive to Rocephin. (7) Atrial fibrillation: Qualifiers: Atrial fibrillation type: paroxysmal Qualified Code(s): I48.0 - Paroxysmal atrial fibrillation Code(s): I48.91 - Unspecified atrial fibrillation Status: Acute Assessment and Plan: currently in sinus rhythm continue apixaban (8) CAD (coronary artery disease): Onset Date: 2012 Code(s): I25.10 - Atherosclerotic heart disease of [place] coronary artery without angina pectoris Status: Acute Assessment and Plan: continue apixaban and aspirin (9) Right hemiparesis: Code(s): G81.91 - Hemiplegia, unspecified affecting right dominant side Status: Acute Assessment and Plan: on aspirin and apixaban for past CVA for secondary prevention (10) Hypothyroid: Qualifiers: Hypothyroidism type: acquired Qualified Code(s): E03.9 - Hypothyroidism, unspecified Code(s): E03.9 - Hypothyroidism, unspecified Status: Acute Assessment and Plan: continue levothyroxine normal TSH (11) Shoulder dislocation: Code(s): S43.006A - Unspecified dislocation of unspecified shoulder joint, initial encounter Status: Acute Assessment and Plan: chest x-ray showed right glenohumeral joint dislocation with humeral head fracture Dr. Lentz spoke to patient's and he states that this may be old although he is not sure. Patient has had couple of falls and since she has paralyzed right side and does not uses the right side injury may not have been apparent. Shoulder CT showed Right rotator cuff ligamentous laxity with mild humeral head inferior subluxation. No cooper dislocation or fracture. (12) Oliguria: Code(s): R34 - Anuria and oliguria Status: Acute Assessment and Plan:
--- NOTE | 2021-11-23 12:24 | PCNFU ---
Nutrition Follow-Up Complete: Inadequate oral intake related to mechanical ventilation as evidenced by need for tube feedings. Goal: Patient to meet estimated nutritional needs. Patient will continue current goal. Pt current nutrition is Vital AF 1.2 at 55 ml/hr over 22 hours. Last recorded weight is 86 kg, down from 99.8 kg on admit. Bowel Motility:+BM reported 11/21 Labs Reviewed:Mg 2.4,Glu 169, Cr 0.6 Meds Noted:Fentanyl, Versed, Atrovent, Synthroid, Solu Medrol, Flagyl, Rocephin, Eliquis, Pepcid Skin: Edematous Additional Notes: Patient remains on mechanical vent and tube feedings of Vital AF 1.2 at 55 ml/hr over 22 hours. Current tube feeding is providing 1452 kcals/91 gms protein/981 ml water. Free water flush 30 ml q 4 hours. Agree with diet orders. Following in ICU rounds and reassessing every Friday and Friday.
--- NOTE | 2021-11-23 15:26 | PM.IMPN ---
Progress Note: A&P Assessment and Plan (1) Acute and chronic respiratory failure: Code(s): J96.20 - Acute and chronic respiratory failure, unspecified whether with hypoxia or hypercapnia Status: Acute Assessment and Plan: Patient presents with acute on chronic respiratory failure which is multifactorial in nature related to PNA, left diaphragmatic paralysis, untreated LESLY and ?pulmonary fibrosis. She was intubated on 11/18/21. Patient remains on mechanical ventilation with attempts at weaning trials. Continue to hold sedation. Continue empiric abx for aspiration and community-acquired pneumonia. Low tidal volume ventilation strategy to prevent volutrauma. Appreciate chemical librarian input. (2) Pneumonia: Qualifiers: Laterality: bilateral Lung location: lower lobe of lung Pneumonia type: due to unspecified organism Qualified Code(s): J18.9 - Pneumonia, unspecified organism Code(s): J18.9 - Pneumonia, unspecified organism Status: Acute Assessment and Plan: CXR on admission showing diffuse bilateral airspace disease which may represent edema or pneumonia. CTA showing no PE but does show patchy mixed airspace disease and airspace consolidation with small effusions. No evidence of pulmonary fibrosis. Currently on treatment for PNA. As above (3) Diaphragmatic paralysis: Code(s): J98.6 - Disorders of diaphragm Status: Acute Assessment and Plan: CXR also showing chronically elevated left diaphragm suggesting phrenic nerve paralysis. This is complicating her ability to be extubated. As above (4) Obstructive sleep apnea: Code(s): G47.33 - Obstructive sleep apnea (adult) (pediatric) Status: Acute Assessment and Plan: Patient is noncomplinat with NIV at home. Currently intubated. Will discuss the benefits of complinace when able. (5) UTI (urinary tract infection): Code(s): N39.0 - Urinary tract infection, site not specified Status: Acute Assessment and Plan: Her urine culture is growing Klebsiella which is sensitive to Rocephin. Continue Rocephin. (6) Atrial fibrillation: Qualifiers: Atrial fibrillation type: paroxysmal Qualified Code(s): I48.0 - Paroxysmal atrial fibrillation Code(s): I48.91 - Unspecified atrial fibrillation Status: Acute Assessment and Plan: Patient monitored on tele and currently in sinus rhythm. Not on rate controlling agents now or at home. Continue apixaban. (7) CAD (coronary artery disease): Onset Date: 2012 Code(s): I25.10 - Atherosclerotic heart disease of [place] coronary artery without angina pectoris Status: Acute Assessment and Plan: Hx reviewed showing she has CAD with 1 drug-eluting stent to the RCA in 2013. Echo showing EF 55-60% adn Grade III diastolic dysfunction and mild valvular disease. No pulmonary HTN. EKG showing nonspecific ST-T wave changes diffuse leads. Not on ASA or beta renato or statin. Continue apixaban. Contineu ASA and Lipitor. (8) Right hemiparesis: Code(s): G81.91 - Hemiplegia, unspecified affecting right dominant side Status: Acute Assessment and Plan: Hx of CVA s/p tPA and revascularization at [place] with occlusion of the left internal carotid artery status post thrombectomy with persistent occlusion of the A2 segment of the RHONDA. Stable. Was on aspirin and apixaban on admission but not statin. Apixaban resumed. ASA resumed and Lipitor added. She will need PT/OT after extubation (9) Hypothyroid: Qualifiers: Hypothyroidism type: acquired Qualified Code(s): E03.9 - Hypothyroidism, unspecified Code(s): E03.9 - Hypothyroidism, unspecified Status: Acute Assessment and Plan: TSH normal. Continue levothyroxine. (10) Shoulder dislocation: Code(s): S43.006A - Unspecified dislocation of unspecified shoulder joint, initial encounter Status: Acute
--- NOTE | 2021-11-23 23:41 | ECG_ITS ---
Measurements Intervals [place] Rate: 126 P: NC: 0 QRS: 55 QRSD: 97 T: 0 QT: 273 QTc: 396 Interpretive Statements ATRIAL FIBRILLATION WITH RAPID VENTRICULAR RESPONSE NONSPECIFIC ST & T-WAVE ABNORMALITY- DIFFUSE LEADS BASELINE ARTIFACT- I, II, AVR, AVL, AVF, V4-V6 ABNORMAL ECG Electronically Signed On 11-24-2021 7:08:33 [employer] by Mike Ferguson D.O.
[2021-11-24] VITALS (40 sets, daily range): BP systolic 111–196; BP diastolic 73–114; PULSE 82–146; RESP 16–35; TEMP 36.4–37.1; O2SAT 88–97
[2021-11-24] MEDS: metroNIDAZOLE 250 MG TABLET 500 MG FEED TUBE ×4 (00:10→18:49)
[2021-11-24] MEDS: METOPROLOL TARTRATE INJ 5 MG/5 ML VIAL IV PUSH ×2 (00:10→18:48)
[2021-11-24] MEDS: ALBUTEROL SULFATE NEB 2.5 MG/0.5 ML INH 5 MG INHALATION ×4 (01:47→20:45)
[2021-11-24] MEDS: IPRATROPIUM BR 0.02% INH SOLN 0.5 MG/2.5 ML VIAL INHALATION ×4 (01:48→20:45)
[2021-11-24] MEDS: LEVOTHYROXINE SODIUM 25 MCG TABLET PO (05:17)
[2021-11-24] MEDS: LEVOTHYROXINE SODIUM 112 MCG TABLET FEED TUBE (05:17)
[2021-11-24 05:19] LABS: Alveolar/Arterial O2 Gradient 57.4 mmHg; Base Excess ABG 3.7 mEq/l (+/-2.0); Device VENTILATOR; Fractional Inspired Oxygen 30 %; HCO3 ABG 29.6 mEq/l (22.0-26.0); Modified Allen's Test Unable to perform; Oxygen Content ABG 18.1 %vol (16.0-22.0); Oxygen Saturation ABG 97.3 % (95.0-100.0); Oxyhemoglobin 95.5 % THb (90.0-100.0); PCO2 ABG 50.3 mmHg (35.0-45.0); PO2 ABG 97.4 mmHg (80.0-100.0); PO2 FiO2 Ratio Arterial Blood 3.25 %; Site Drawn RIGHT RADIAL; Total Hemoglobin 13.4 g/dL (12.0-18.0); pH ABG 7.388 (7.350-7.450)
[2021-11-24 05:20] LABS: Arterial Blood Gas PEEP 5 cmH2O; Arterial Blood Gas Tidal Volume 300 ml; Arterial Blood Gas Vent Mode CMV; Arterial Blood Gas Ventilator rate 18 /MIN
[2021-11-24] MEDS: ATORVASTATIN 20 MG TABLET FEED TUBE (09:42)
[2021-11-24] MEDS: APIXABAN 5 MG TABLET FEED TUBE ×2 (09:42→20:51)
[2021-11-24] MEDS: ASPIRIN 81 MG CHEWABLE TABLET FEED TUBE (09:42)
[2021-11-24] MEDS: FAMOTIDINE 20 MG/2 ML VIAL IV PUSH ×2 (09:42→20:51)
[2021-11-24] MEDS: MINERAL OIL/WHITE PETROLATUM OINTMENT 1 APPLIC EACH EYE (09:43)
[2021-11-24] MEDS: methylPREDNISolone SOD SUCC 125 MG VIAL 60 MG IV PUSH (09:48)
[2021-11-24] MEDS: dexmedeTOMIDine 400 MCG/100 ML 400 MCG/100 ML BAG IV CONT (11:05)
--- NOTE | 2021-11-24 11:51 | WPDINTPN ---
Progress Note: A&P Assessment and Plan (1) Acute and chronic respiratory failure: Code(s): J96.20 - Acute and chronic respiratory failure, unspecified whether with hypoxia or hypercapnia Status: Acute Assessment and Plan: Acute on chronic Respiratory failure which is multifactorial and is secondary to left diaphragmatic paralysis, pneumonia, obstructive sleep apnea which is untreated and pulmonary fibrosis, also secondary to altered mental status from possible UTI Patient has been failing weaning trials for the last 3 days Patient is off all sedation, currently in CMV mode of ventilation. -have asked respiratory therapist to place patient on pressure support ventilation and breathing trial Patient is anxious and tachypneic and was started on Precedex infusion with improvement in her respiratory rate and improved tidal volumes Will repeat Lasix again today Continue empiric Rocephin, Flagyl and azithromycin to cover for UTI, aspiration and community-acquired pneumonia Continue bronchodilators Bronchodilators Blood cultures are negative x2, urine cultures growing Klebsiella pneumoniae which is pansensitive (2) Pneumonia: Qualifiers: Laterality: bilateral Lung location: lower lobe of lung Pneumonia type: due to unspecified organism Qualified Code(s): J18.9 - Pneumonia, unspecified organism Code(s): J18.9 - Pneumonia, unspecified organism Status: Acute Assessment and Plan: see above (3) Diaphragmatic paralysis: Code(s): J98.6 - Disorders of diaphragm Status: Acute Assessment and Plan: This could be a reason why patient is failing her weaning trials (4) Pulmonary fibrosis: Code(s): J84.10 - Pulmonary fibrosis, unspecified Status: Acute Assessment and Plan: see above (5) Obstructive sleep apnea: Code(s): G47.33 - Obstructive sleep apnea (adult) (pediatric) Status: Acute Assessment and Plan: currently intubated (6) UTI (urinary tract infection): Code(s): N39.0 - Urinary tract infection, site not specified Status: Acute Assessment and Plan: Her urine culture is growing Klebsiella which is sensitive to Rocephin. (7) Atrial fibrillation: Qualifiers: Atrial fibrillation type: paroxysmal Qualified Code(s): I48.0 - Paroxysmal atrial fibrillation Code(s): I48.91 - Unspecified atrial fibrillation Status: Acute Assessment and Plan: Patient went into AFib RVR overnight (11/23 and 11/24), was given metoprolol and patient converted to sinus rhythm. continue apixaban (8) CAD (coronary artery disease): Onset Date: 2012 Code(s): I25.10 - Atherosclerotic heart disease of [place] coronary artery without angina pectoris Status: Acute Assessment and Plan: continue apixaban and aspirin (9) Right hemiparesis: Code(s): G81.91 - Hemiplegia, unspecified affecting right dominant side Status: Acute Assessment and Plan: on aspirin and apixaban for past CVA for secondary prevention (10) Hypothyroid: Qualifiers: Hypothyroidism type: acquired Qualified Code(s): E03.9 - Hypothyroidism, unspecified Code(s): E03.9 - Hypothyroidism, unspecified Status: Acute Assessment and Plan: continue levothyroxine normal TSH (11) Shoulder dislocation: Code(s): S43.006A - Unspecified dislocation of unspecified shoulder joint, initial encounter Status: Acute Assessment and Plan: chest x-ray showed right glenohumeral joint dislocation with humeral head fracture Dr. Lentz spoke to patient's and he states that this may be old although he is not sure. Patient has had couple of falls and since she has paralyzed right side and does not uses the right side injury may not have been apparent. Shoulder CT showed Right rotator cuff ligamentous laxity with mild humeral head inferior subluxation. No cooper dislocation
[2021-11-24] MEDS: FUROSEMIDE INJ 40 MG/4 ML VIAL IV PUSH (12:15)
[2021-11-24 12:35] LABS: Alveolar/Arterial O2 Gradient 73.1 mmHg; Base Excess ABG 7.3 mEq/l (+/-2.0); Fractional Inspired Oxygen 30 %; HCO3 ABG 33.1 mEq/l (22.0-26.0); Oxygen Content ABG 18.1 %vol (16.0-22.0); Oxygen Saturation ABG 95.9 % (95.0-100.0); PCO2 ABG 51.8 mmHg (35.0-45.0); PO2 ABG 79.9 mmHg (80.0-100.0); PO2 FiO2 Ratio Arterial Blood 2.66 %; Total Hemoglobin 13.5 g/dL (12.0-18.0); pH ABG 7.424 (7.350-7.450)
[2021-11-24 12:39] LABS: Device VENTILATOR; Modified Allen's Test Pass; Site Drawn LEFT RADIAL
[2021-11-24 12:40] LABS: Arterial Blood Gas PEEP 5 cmH2O; Arterial Blood Gas Pressure Support 8 cmH2O; Arterial Blood Gas Vent Mode SPONTANEOUS
--- NOTE | 2021-11-24 14:48 | WPDPROCEDUR ---
Procedures Intubation Intubation Date: 11/24/21 Intubation Time: 14:49 A pre-procedural Time-Out was completed immediately before starting the procedure and confirmed: Patient Identification, Site, Procedure, Patient Position and the Availability of Requisite Equipment: Yes Sedative: etomidate Paralytic: rocuronium Laryngoscope: fiber optic video scope ET tube size: 7.5 Tube secured depth (cm): 23 Tube secured location: lips Tube placement confirmation: visualized tube passing through cords, equal breath sounds bilaterally, no breath sounds over epigastrium and confirmation by capnometry Patient tolerated procedure: well Intubation complications: none
--- NOTE | 2021-11-24 14:50 | PM.EVENT ---
Event Note Event Note Event Note: Patient was placed on spontaneous breathing trial this morning and was extubated successfully. Patient had adequate tidal volumes, respiratory rate, RSBI and ABGs look pretty good before intubation. Patient did not have much secretions. After being extubated for around 2 hours patient was tachypneic, tachycardic, hypertensive. She seemed to be in respiratory distress and it was decided reintubate her. Intubation was uneventful. Will place patient on same settings as she was this morning. Will obtain chest x-ray for ET tube placement and abdominal x-ray for OG/NG tube placement
[2021-11-24] MEDS: PROPOFOL IV EMULSION 100 ML 2.42 MG IV CONT (14:55)
--- NOTE | 2021-11-24 15:26 | PC.NURSE ---
Patient extubated at 1155 by RT per MD orders. Placed on 4L NC. Will continue to monitor.
--- NOTE | 2021-11-24 15:49 | PC.NURSE ---
At 1400, patient continuing to desaturate despite being titrated up on oxygen. Accessory muscle use for breathing noted. Dr. Leal made aware. Patient reintubated at 1445.
[2021-11-24] MEDS: TOLNAFTATE 1% POWDER 45 GM BTL 1 APPLIC TOPICAL (21:05)
[2021-11-24] MEDS: METOPROLOL TARTRATE INJ 5 MG/5 ML VIAL 2.5 MG IV PUSH (21:39)
[2021-11-25] VITALS (33 sets, daily range): BP systolic 105–133; BP diastolic 66–82; PULSE 83–169; RESP 18–24; TEMP 36.3–37.1; O2SAT 92–98
[2021-11-25] MEDS: metroNIDAZOLE 250 MG TABLET 500 MG FEED TUBE ×4 (00:31→18:10)
[2021-11-25] MEDS: METOPROLOL TARTRATE INJ 5 MG/5 ML VIAL 2.5 MG IV PUSH ×2 (01:55→08:50)
[2021-11-25] MEDS: IPRATROPIUM BR 0.02% INH SOLN 0.5 MG/2.5 ML VIAL INHALATION ×4 (02:02→19:15)
[2021-11-25] MEDS: ALBUTEROL SULFATE NEB 2.5 MG/0.5 ML INH 5 MG INHALATION ×4 (02:02→19:15)
[2021-11-25 04:39] LABS: Basophils Percent Auto 0.2 % (0.2-1.2); Eosinophils Percent Auto 0.1 % (0-4.4); Hematocrit 39.1 % (37.0-47.0); Hemoglobin 12.6 g/dL (12.0-15.0); Immature Granulocyte Absolute 0.05 K/mm3 (0.00-0.031); Immature Granulocyte Percent A 0.4 % (0-0.5); Lymphocytes Absolute Auto 0.84 K/mm3 (0.9-3.2); Lymphocytes Percent Auto 6.4 % (18.3-44.2); Mean Corpuscular HGB Conc 32.2 g/dl (32-36); Mean Corpuscular Hemoglobin 30.9 pg (26-34); Mean Corpuscular Volume 95.8 fl (80-100); Mean Platelet Volume 11.7 fl (7.4-10.4); Monocytes Absolute Auto 1.8 K/mm3 (0.1-0.6); Monocytes Percent Auto 13.3 % (2.6-8.5); Neutrophils Absolute Auto 10.5 K/mm3 (1.3-6.7); Neutrophils Percent Auto 79.6 % (45.5-73.1); Platelet Count Result 174 k/mm3 (150-375); Red Blood Count 4.08 M/mm3 (4.2-5.4); Red Cell Distribution Width 14.1 % (11.5-14.5); White Blood Count 13.2 K/mm3 (4.5-10.0)
[2021-11-25 04:50] LABS: Alanine Aminotransferase 20 U/L (4-35); Albumin Level 3.2 g/dL (3.5-5.1); Alkaline Phosphatase 49 U/L (38-126); Anion Gap 5 mmol/L (8-16); Aspartate Amino Transferase 18 U/L (14-36); Bilirubin,Total 0.7 mg/dL (0.2-1.3); Blood Urea Nitrogen 46 mg/dL (7-17); Calcium 9.3 mg/dL (8.4-10.2); Carbon Dioxide 36 mmol/L (22-30); Chloride 97 mmol/L (98-107); Estimated CRCL calculation 68 ml/min; Estimated Glomerular Filt Rate > 60; Glucose 155 mg/dL (65-110); Magnesium 2.1 mg/dL (1.6-2.3); Phosphorus 3.4 mg/dL (2.5-4.5); Potassium 4.8 mmol/L (3.4-5.0); Sodium 138 mmol/L (137-145)
[2021-11-25] MEDS: LEVOTHYROXINE SODIUM 25 MCG TABLET PO (05:14)
[2021-11-25] MEDS: PROPOFOL IV EMULSION 100 ML 7.25 MG IV CONT (05:14)
[2021-11-25] MEDS: LEVOTHYROXINE SODIUM 112 MCG TABLET FEED TUBE (05:14)
[2021-11-25 05:42] LABS: Base Excess ABG 7.8 mEq/l (+/-2.0); Carboxyhemoglobin 0.4 % THb (0-2.0); Device VENTILATOR; Fractional Inspired Oxygen 35 %; HCO3 ABG 33.7 mEq/l (22.0-26.0); Methemoglobin ABG 0.3 %THb (0-1.5); Modified Allen's Test Unable to perform; Oxygen Content ABG 18.2 %vol (16.0-22.0); Oxyhemoglobin 95.4 % THb (90.0-100.0); PCO2 ABG 52.4 mmHg (35.0-45.0); PO2 ABG 90.6 mmHg (80.0-100.0); PO2 FiO2 Ratio Arterial Blood 2.59 %; Reduced Hemoglobin 3.9 %THb (0-5.0); Site Drawn RIGHT RADIAL; Total Hemoglobin 13.5 g/dL (12.0-18.0); pH ABG 7.426 (7.350-7.450)
[2021-11-25 05:43] LABS: Arterial Blood Gas PEEP 5 cmH2O; Arterial Blood Gas Tidal Volume 300 ml; Arterial Blood Gas Vent Mode CMV; Arterial Blood Gas Ventilator rate 18 /MIN
[2021-11-25] MEDS: ASPIRIN 81 MG CHEWABLE TABLET FEED TUBE (08:37)
[2021-11-25] MEDS: ATORVASTATIN 20 MG TABLET FEED TUBE (08:37)
[2021-11-25] MEDS: APIXABAN 5 MG TABLET FEED TUBE ×2 (08:37→21:35)
[2021-11-25] MEDS: FAMOTIDINE 20 MG/2 ML VIAL IV PUSH ×2 (08:37→21:35)
[2021-11-25] MEDS: MINERAL OIL/WHITE PETROLATUM OINTMENT 1 APPLIC EACH EYE (08:38)
[2021-11-25] MEDS: TOLNAFTATE 1% POWDER 45 GM BTL 1 APPLIC TOPICAL ×2 (08:38→21:36)
[2021-11-25] MEDS: METOPROLOL TARTRATE 25 MG TABLET PO ×2 (09:09→21:35)
--- NOTE | 2021-11-25 10:55 | WPDINTPN ---
Progress Note: A&P Assessment and Plan (1) Acute and chronic respiratory failure: Code(s): J96.20 - Acute and chronic respiratory failure, unspecified whether with hypoxia or hypercapnia Status: Acute Assessment and Plan: Acute on chronic Respiratory failure which is multifactorial and is secondary to left diaphragmatic paralysis, pneumonia, obstructive sleep apnea which is untreated and pulmonary fibrosis, also secondary to altered mental status from possible UTI 11/24/2021: and was extubated after spontaneous breathing trial normal RSBI, normal ABGs. Patient tolerated for 2 hours and then went into respiratory distress, tachypnea, tachycardia and elevated blood pressures. She was re-intubated for impending respiratory failure [id number]. - Started on propofol infusion, maintain RASS of 0 to -2 - chest x-ray this morning shows bilateral pulmonary infiltrates - Will repeat Lasix again today patient has grade 3 diastolic dysfunction Continue empiric Rocephin, Flagyl and azithromycin to cover for UTI, aspiration and community-acquired pneumonia, for a total of 10 days Continue bronchodilators Bronchodilators Blood cultures are negative x2, urine cultures growing Klebsiella pneumoniae which is pansensitive (2) Pneumonia: Qualifiers: Laterality: bilateral Lung location: lower lobe of lung Pneumonia type: due to unspecified organism Qualified Code(s): J18.9 - Pneumonia, unspecified organism Code(s): J18.9 - Pneumonia, unspecified organism Status: Acute Assessment and Plan: see above (3) Diaphragmatic paralysis: Code(s): J98.6 - Disorders of diaphragm Status: Acute Assessment and Plan: This could be a reason why patient is failing her weaning trials (4) Pulmonary fibrosis: Code(s): J84.10 - Pulmonary fibrosis, unspecified Status: Acute Assessment and Plan: see above (5) Obstructive sleep apnea: Code(s): G47.33 - Obstructive sleep apnea (adult) (pediatric) Status: Acute Assessment and Plan: currently intubated (6) UTI (urinary tract infection): Code(s): N39.0 - Urinary tract infection, site not specified Status: Acute Assessment and Plan: Her urine culture is growing Klebsiella which is sensitive to Rocephin. (7) Atrial fibrillation: Qualifiers: Atrial fibrillation type: paroxysmal Qualified Code(s): I48.0 - Paroxysmal atrial fibrillation Code(s): I48.91 - Unspecified atrial fibrillation Status: Acute Assessment and Plan: Patient went into AFib RVR overnight (11/23 and 11/24), was given metoprolol and patient converted to sinus rhythm. - have started patient on p.o. metoprolol continue apixaban (8) CAD (coronary artery disease): Onset Date: 2012 Code(s): I25.10 - Atherosclerotic heart disease of [place] coronary artery without angina pectoris Status: Acute Assessment and Plan: continue apixaban and aspirin echocardiogram 11/23/2021 shows a EF of 55-60%, grade 3 diastolic dysfunction, mild aortic stenosis, no pulmonary hypertension, LV chamber is normal (9) Right hemiparesis: Code(s): G81.91 - Hemiplegia, unspecified affecting right dominant side Status: Acute Assessment and Plan: on aspirin and apixaban for past CVA for secondary prevention (10) Hypothyroid: Qualifiers: Hypothyroidism type: acquired Qualified Code(s): E03.9 - Hypothyroidism, unspecified Code(s): E03.9 - Hypothyroidism, unspecified Status: Acute Assessment and Plan: continue levothyroxine normal TSH (11) Shoulder dislocation: Code(s): S43.006A - Unspecified dislocation of unspecified shoulder joint, initial encounter Status: Acute Assessment and Plan: chest x-ray showed right glenohumeral joint dislocation with humeral head fracture Dr. Lentz spoke to patient's and he states that t
[2021-11-25] MEDS: FUROSEMIDE INJ 40 MG/4 ML VIAL IV PUSH (11:20)
[2021-11-25] MEDS: PROPOFOL IV EMULSION 100 ML 12.08 MG IV CONT (18:00)
[2021-11-25] MEDS: CENTRAL LINE FLUSH 10 ML IV PUSH (21:35)
[2021-11-26] VITALS (37 sets, daily range): BP systolic 99–146; BP diastolic 61–87; PULSE 70–98; RESP 18–27; TEMP 36.4–37.3; O2SAT 95–98; BMI 27.0
[2021-11-26] MEDS: metroNIDAZOLE 250 MG TABLET 500 MG FEED TUBE ×4 (01:02→17:04)
[2021-11-26] MEDS: PROPOFOL IV EMULSION 100 ML 12.08 MG IV CONT ×2 (01:03→07:41)
[2021-11-26] MEDS: IPRATROPIUM BR 0.02% INH SOLN 0.5 MG/2.5 ML VIAL INHALATION ×4 (01:58→20:00)
[2021-11-26] MEDS: ALBUTEROL SULFATE NEB 2.5 MG/0.5 ML INH 5 MG INHALATION ×4 (01:58→20:00)
[2021-11-26 05:01] LABS: pH ABG 7.418 (7.350-7.450)
[2021-11-26 05:03] LABS: Total Hemoglobin 11.4 g/dL (12.0-18.0)
[2021-11-26 05:04] LABS: Carboxyhemoglobin 0.3 % THb (0-2.0); Oxygen Content ABG 15.4 %vol (16.0-22.0)
[2021-11-26] MEDS: LEVOTHYROXINE SODIUM 25 MCG TABLET PO (05:04)
[2021-11-26] MEDS: LEVOTHYROXINE SODIUM 112 MCG TABLET FEED TUBE (05:04)
[2021-11-26 05:05] LABS: Device VENTILATOR; Fractional Inspired Oxygen 35 %; Methemoglobin ABG 0.1 %THb (0-1.5); Modified Allen's Test Pass; PO2 FiO2 Ratio Arterial Blood 2.54 %; Reduced Hemoglobin 4.3 %THb (0-5.0); Site Drawn RIGHT RADIAL
[2021-11-26] MEDS: CENTRAL LINE FLUSH 10 ML IV PUSH ×3 (05:05→21:22)
[2021-11-26 05:06] LABS: Arterial Blood Gas PEEP 5 cmH2O; Arterial Blood Gas Tidal Volume 300 ml; Arterial Blood Gas Vent Mode CMV; Arterial Blood Gas Ventilator rate 18 /MIN
[2021-11-26 05:15] LABS: Basophils Percent Auto 0.1 % (0.2-1.2); Eosinophils Absolute Auto 0.3 K/mm3 (0-0.3); Eosinophils Percent Auto 2.3 % (0-4.4); Hematocrit 40.1 % (37.0-47.0); Hemoglobin 12.7 g/dL (12.0-15.0); Immature Granulocyte Absolute 0.07 K/mm3 (0.00-0.031); Immature Granulocyte Percent A 0.5 % (0-0.5); Lymphocytes Absolute Auto 2.19 K/mm3 (0.9-3.2); Lymphocytes Percent Auto 15.5 % (18.3-44.2); Mean Corpuscular HGB Conc 31.7 g/dl (32-36); Mean Corpuscular Hemoglobin 30.8 pg (26-34); Mean Corpuscular Volume 97.3 fl (80-100); Mean Platelet Volume 11.5 fl (7.4-10.4); Monocytes Percent Auto 14.1 % (2.6-8.5); Neutrophils Absolute Auto 9.5 K/mm3 (1.3-6.7); Neutrophils Percent Auto 67.5 % (45.5-73.1); Platelet Count Result 172 k/mm3 (150-375); Red Blood Count 4.12 M/mm3 (4.2-5.4); Red Cell Distribution Width 14.2 % (11.5-14.5); White Blood Count 14.1 K/mm3 (4.5-10.0)
[2021-11-26 05:45] LABS: Alanine Aminotransferase 20 U/L (4-35); Albumin Level 3.3 g/dL (3.5-5.1); Alkaline Phosphatase 59 U/L (38-126); Aspartate Amino Transferase 19 U/L (14-36); Bilirubin,Total 0.6 mg/dL (0.2-1.3); Blood Urea Nitrogen 45 mg/dL (7-17); Calcium 9.3 mg/dL (8.4-10.2); Carbon Dioxide > 40 mmol/L (22-30); Chloride 94 mmol/L (98-107); Estimated CRCL calculation 52 ml/min; Estimated Glomerular Filt Rate > 60; Glucose 101 mg/dL (65-110); Potassium 3.9 mmol/L (3.4-5.0); Sodium 138 mmol/L (137-145)
[2021-11-26] MEDS: FAMOTIDINE 20 MG/2 ML VIAL IV PUSH ×2 (08:55→21:20)
[2021-11-26] MEDS: ASPIRIN 81 MG CHEWABLE TABLET FEED TUBE (08:56)
[2021-11-26] MEDS: METOPROLOL TARTRATE 25 MG TABLET PO ×2 (08:56→21:20)
[2021-11-26] MEDS: APIXABAN 5 MG TABLET FEED TUBE ×2 (08:56→21:20)
[2021-11-26] MEDS: ATORVASTATIN 20 MG TABLET FEED TUBE (08:56)
[2021-11-26] MEDS: MINERAL OIL/WHITE PETROLATUM OINTMENT 1 APPLIC EACH EYE (08:57)
[2021-11-26] MEDS: TOLNAFTATE 1% POWDER 45 GM BTL 1 APPLIC TOPICAL ×2 (09:13→21:20)
--- NOTE | 2021-11-26 11:48 | PCFNICU ---
ICU Rounding Note: Pt current nutrition is Vital AF 1.2 at 55 ml/hr over 22 hours. Last recorded weight is 73.7 kg, down from 99.8 kg on admit. Bowel Motility:+BM reported 11/26 Labs Reviewed:BUN 45, Alb 3.3 Meds Noted:Solu Medrol, Flagyl, Versed, Synthroid, Atrovent, Fentanyl, Rocephin, Eliquis, Lipitor, Pepcid, Flagyl, vancomycin, Synthroid, Propofol 20 gev=387 kcals. Skin: edematous Additional Notes: Patient remains on mechanical vent and tube feedings of Vital 1.2 at 55 ml/hr over 22 hours. Current tube feeding is providing 1452 kcals/91 gms protein/981 ml water. Additional 255 kcal from propofol. Patient is tolerating tube feedings. Free water flush 30 ml q 4 hours. Will continue to monitor propofol titration for any tube feeding rate changes. Following daily in ICU rounds. Monitor pt. labs. medications, weight and oral intake every Friday and Friday.
--- NOTE | 2021-11-26 11:58 | WPDINTPN ---
Progress Note: A&P Assessment and Plan (1) Acute and chronic respiratory failure: Code(s): J96.20 - Acute and chronic respiratory failure, unspecified whether with hypoxia or hypercapnia Status: Acute Assessment and Plan: Acute on chronic Respiratory failure which is multifactorial and is secondary to left diaphragmatic paralysis, pneumonia, obstructive sleep apnea which is untreated and pulmonary fibrosis, also secondary to altered mental status from possible UTI 11/24/2021: and was extubated after spontaneous breathing trial normal RSBI, normal ABGs. Patient tolerated for 2 hours and then went into respiratory distress, tachypnea, tachycardia and elevated blood pressures. She was re-intubated for impending respiratory failure [id number]. - chest x-ray this morning shows Elevated left hemidiaphragm, evidence of multisegmental left lower lobe collapse. There is bilateral ill-defined pneumonia or edema.. Probable pleural effusions. There is no pneumothorax suspected. The cardiomediastinal silhouette is prominent but magnified on this AP technique. There are bony degenerative changes. -will diurese again today with Diamox as patient has contraction alkalosis. patient has grade 3 diastolic dysfunction - Started on propofol infusion, maintain RASS of 0 to -2 Given worsening chest x-ray able to wean of the ventilator, switched antibiotics to vanc and cefepime (started on 11/26/2021). Will continue Flagyl to cover anaerobes, Continue bronchodilators Blood cultures are negative x2, -urine cultures growing Klebsiella pneumoniae which is pansensitive (2) Pneumonia: Qualifiers: Laterality: bilateral Lung location: lower lobe of lung Pneumonia type: due to unspecified organism Qualified Code(s): J18.9 - Pneumonia, unspecified organism Code(s): J18.9 - Pneumonia, unspecified organism Status: Acute Assessment and Plan: see above (3) Diaphragmatic paralysis: Code(s): J98.6 - Disorders of diaphragm Status: Acute Assessment and Plan: This could be a reason why patient is failing her weaning trials (4) Pulmonary fibrosis: Code(s): J84.10 - Pulmonary fibrosis, unspecified Status: Acute Assessment and Plan: see above (5) Obstructive sleep apnea: Code(s): G47.33 - Obstructive sleep apnea (adult) (pediatric) Status: Acute Assessment and Plan: currently intubated (6) UTI (urinary tract infection): Code(s): N39.0 - Urinary tract infection, site not specified Status: Acute Assessment and Plan: Her urine culture is growing Klebsiella, on cefepime starting 11/26/2021 (7) Atrial fibrillation: Qualifiers: Atrial fibrillation type: paroxysmal Qualified Code(s): I48.0 - Paroxysmal atrial fibrillation Code(s): I48.91 - Unspecified atrial fibrillation Status: Acute Assessment and Plan: Patient went into AFib RVR overnight (11/23 and 11/24), was given metoprolol and patient converted to sinus rhythm. - have started patient on p.o. metoprolol, currently in sinus rhythm, rate controlled continue apixaban (8) CAD (coronary artery disease): Onset Date: 2012 Code(s): I25.10 - Atherosclerotic heart disease of [place] coronary artery without angina pectoris Status: Acute Assessment and Plan: continue apixaban and aspirin echocardiogram 11/23/2021 shows a EF of 55-60%, grade 3 diastolic dysfunction, mild aortic stenosis, no pulmonary hypertension, LV chamber is normal (9) Right hemiparesis: Code(s): G81.91 - Hemiplegia, unspecified affecting right dominant side Status: Acute Assessment and Plan: on aspirin and apixaban for past CVA for secondary prevention (10) Hypothyroid: Qualifiers: Hypothyroidism type: acquired Qualified Code(s): E03.9 - Hypothyroidism, unspecified Code(s): E03.9 - Hypothyroidism, unspecified S
[2021-11-26] MEDS: acetaZOLAMIDE SODIUM FOR INJ 500 MG VIAL 250 MG IV PUSH (12:32)
[2021-11-26] MEDS: SCOPOLAMINE 1.5 MG PATCH TRANSDERM (15:36)
[2021-11-26] MEDS: PROPOFOL IV EMULSION 100 ML 9.66 MG IV CONT (18:26)
[2021-11-27] VITALS (29 sets, daily range): BP systolic 96–130; BP diastolic 59–83; PULSE 69–98; RESP 18–94; TEMP 36.4–36.9; O2SAT 91–97
[2021-11-27] MEDS: metroNIDAZOLE 250 MG TABLET 500 MG FEED TUBE ×5 (00:36→23:43)
[2021-11-27] MEDS: PROPOFOL IV EMULSION 100 ML 12.08 MG IV CONT (00:37)
[2021-11-27] MEDS: acetaZOLAMIDE SODIUM FOR INJ 500 MG VIAL 250 MG IV PUSH (00:37)
[2021-11-27] MEDS: IPRATROPIUM BR 0.02% INH SOLN 0.5 MG/2.5 ML VIAL INHALATION ×4 (02:22→20:05)
[2021-11-27] MEDS: ALBUTEROL SULFATE NEB 2.5 MG/0.5 ML INH 5 MG INHALATION ×4 (02:22→20:05)
--- NOTE | 2021-11-27 02:48 | PC.NURSE ---
Versed drip increased to 2 because pt is stacking breaths.
--- NOTE | 2021-11-27 04:04 | PC.NURSE ---
Bed scale incorrect, pt lifted off bed using ceiling lift and bed re-zeroed.
[2021-11-27] MEDS: CENTRAL LINE FLUSH 10 ML IV PUSH ×3 (05:09→21:48)
[2021-11-27] MEDS: LEVOTHYROXINE SODIUM 112 MCG TABLET FEED TUBE (05:09)
[2021-11-27] MEDS: LEVOTHYROXINE SODIUM 25 MCG TABLET PO (05:09)
[2021-11-27 05:20] LABS: Basophils Percent Auto 0.1 % (0.2-1.2); Eosinophils Absolute Auto 0.4 K/mm3 (0-0.3); Eosinophils Percent Auto 3.1 % (0-4.4); Hematocrit 39.4 % (37.0-47.0); Hemoglobin 12.8 g/dL (12.0-15.0); Immature Granulocyte Absolute 0.06 K/mm3 (0.00-0.031); Immature Granulocyte Percent A 0.5 % (0-0.5); Lymphocytes Percent Auto 12.2 % (18.3-44.2); Mean Corpuscular HGB Conc 32.5 g/dl (32-36); Mean Corpuscular Hemoglobin 31.4 pg (26-34); Mean Corpuscular Volume 96.8 fl (80-100); Mean Platelet Volume 11.9 fl (7.4-10.4); Monocytes Absolute Auto 1.7 K/mm3 (0.1-0.6); Monocytes Percent Auto 12.6 % (2.6-8.5); Neutrophils Absolute Auto 9.4 K/mm3 (1.3-6.7); Neutrophils Percent Auto 71.5 % (45.5-73.1); Platelet Count Result 181 k/mm3 (150-375); Red Blood Count 4.07 M/mm3 (4.2-5.4); Red Cell Distribution Width 14.2 % (11.5-14.5); White Blood Count 13.1 K/mm3 (4.5-10.0)
[2021-11-27 05:37] LABS: Alanine Aminotransferase 19 U/L (4-35); Albumin Level 3.2 g/dL (3.5-5.1); Alkaline Phosphatase 59 U/L (38-126); Anion Gap 6 mmol/L (8-16); Aspartate Amino Transferase 19 U/L (14-36); Bilirubin,Total 0.8 mg/dL (0.2-1.3); Blood Urea Nitrogen 31 mg/dL (7-17); Calcium 9.3 mg/dL (8.4-10.2); Carbon Dioxide 34 mmol/L (22-30); Chloride 98 mmol/L (98-107); Estimated CRCL calculation 38 ml/min; Estimated Glomerular Filt Rate > 60; Glucose 123 mg/dL (65-110); Magnesium 2.1 mg/dL (1.6-2.3); Phosphorus 4.1 mg/dL (2.5-4.5); Potassium 3.5 mmol/L (3.4-5.0); Sodium 138 mmol/L (137-145)
[2021-11-27 05:42] LABS: Base Excess ABG 6.5 mEq/l (+/-2.0); Carboxyhemoglobin 0.4 % THb (0-2.0); Fractional Inspired Oxygen 30 %; HCO3 ABG 31.2 mEq/l (22.0-26.0); Methemoglobin ABG 0.2 %THb (0-1.5); Oxygen Content ABG 18.3 %vol (16.0-22.0); Oxygen Saturation ABG 95.9 % (95.0-100.0); Oxyhemoglobin 93.9 % THb (90.0-100.0); PCO2 ABG 45.1 mmHg (35.0-45.0); PO2 ABG 76.9 mmHg (80.0-100.0); PO2 FiO2 Ratio Arterial Blood 2.56 %; Reduced Hemoglobin 5.5 %THb (0-5.0); Total Hemoglobin 13.8 g/dL (12.0-18.0); pH ABG 7.458 (7.350-7.450)
[2021-11-27 05:43] LABS: Device VENTILATOR; Modified Allen's Test Pass; Site Drawn RIGHT RADIAL
[2021-11-27 05:44] LABS: Arterial Blood Gas Vent Mode SPONTANEOUS
[2021-11-27 05:45] LABS: Arterial Blood Gas PEEP 5 cmH2O
[2021-11-27] MEDS: PROPOFOL IV EMULSION 100 ML 9.66 MG IV CONT ×2 (09:17→17:51)
[2021-11-27] MEDS: POTASSIUM CHLORIDE 20 MEQ PACKET (FOR LIQUID) 40 MEQ FEED TUBE (09:18)
[2021-11-27] MEDS: APIXABAN 5 MG TABLET FEED TUBE ×2 (09:19→21:45)
[2021-11-27] MEDS: ASPIRIN 81 MG CHEWABLE TABLET FEED TUBE (09:19)
[2021-11-27] MEDS: MINERAL OIL/WHITE PETROLATUM OINTMENT 1 APPLIC EACH EYE ×3 (09:19→21:47)
[2021-11-27] MEDS: FAMOTIDINE 20 MG/2 ML VIAL IV PUSH ×2 (09:19→21:45)
[2021-11-27] MEDS: ATORVASTATIN 20 MG TABLET FEED TUBE (09:19)
[2021-11-27] MEDS: METOPROLOL TARTRATE 25 MG TABLET PO ×2 (09:19→21:46)
[2021-11-27] MEDS: TOLNAFTATE 1% POWDER 45 GM BTL 1 APPLIC TOPICAL ×2 (09:20→21:47)
--- NOTE | 2021-11-27 10:58 | WPDINTPN ---
Progress Note: A&P Assessment and Plan (1) Acute and chronic respiratory failure: Code(s): J96.20 - Acute and chronic respiratory failure, unspecified whether with hypoxia or hypercapnia Status: Acute Assessment and Plan: Acute on chronic Respiratory failure which is multifactorial and is secondary to left diaphragmatic paralysis, pneumonia, obstructive sleep apnea which is untreated and pulmonary fibrosis, also secondary to altered mental status from possible UTI 11/24/2021: and was extubated after spontaneous breathing trial normal RSBI, normal ABGs. Patient tolerated for 2 hours and then went into respiratory distress, tachypnea, tachycardia and elevated blood pressures. She was re-intubated for impending respiratory failure [id number]. - chest x-ray this morning Elevated left hemidiaphragm, evidence of multisegmental left lower lobe collapse. There is bilateral ill-defined pneumonia or edema. Probable small pleural effusions. There is no pneumothorax suspected. -will diurese with Bumex -sedated with propofol infusion, maintain RASS of 0 to -2 Antibiotics was switched to vancomycin and cefepime on 11/26/2021. Will continue Flagyl to cover anaerobes, Continue bronchodilators Blood cultures are negative x2, -urine cultures growing Klebsiella pneumoniae which is pansensitive (2) Pneumonia: Qualifiers: Laterality: bilateral Lung location: lower lobe of lung Pneumonia type: due to unspecified organism Qualified Code(s): J18.9 - Pneumonia, unspecified organism Code(s): J18.9 - Pneumonia, unspecified organism Status: Acute Assessment and Plan: see above (3) Diaphragmatic paralysis: Code(s): J98.6 - Disorders of diaphragm Status: Acute Assessment and Plan: This could be a reason why patient is failing her weaning trials (4) Pulmonary fibrosis: Code(s): J84.10 - Pulmonary fibrosis, unspecified Status: Acute Assessment and Plan: see above (5) Obstructive sleep apnea: Code(s): G47.33 - Obstructive sleep apnea (adult) (pediatric) Status: Acute Assessment and Plan: currently intubated (6) UTI (urinary tract infection): Code(s): N39.0 - Urinary tract infection, site not specified Status: Acute Assessment and Plan: Her urine culture is growing Klebsiella, on cefepime starting 11/26/2021 (7) Atrial fibrillation: Qualifiers: Atrial fibrillation type: paroxysmal Qualified Code(s): I48.0 - Paroxysmal atrial fibrillation Code(s): I48.91 - Unspecified atrial fibrillation Status: Acute Assessment and Plan: Patient went into AFib RVR overnight (11/23 and 11/24), was given metoprolol and patient converted to sinus rhythm. - have started patient on p.o. metoprolol, currently in sinus rhythm, rate controlled continue apixaban (8) CAD (coronary artery disease): Onset Date: 2012 Code(s): I25.10 - Atherosclerotic heart disease of [place] coronary artery without angina pectoris Status: Acute Assessment and Plan: continue apixaban and aspirin echocardiogram 11/23/2021 shows a EF of 55-60%, grade 3 diastolic dysfunction, mild aortic stenosis, no pulmonary hypertension, LV chamber is normal (9) Right hemiparesis: Code(s): G81.91 - Hemiplegia, unspecified affecting right dominant side Status: Acute Assessment and Plan: on aspirin and apixaban for past CVA for secondary prevention (10) Hypothyroid: Qualifiers: Hypothyroidism type: acquired Qualified Code(s): E03.9 - Hypothyroidism, unspecified Code(s): E03.9 - Hypothyroidism, unspecified Status: Acute Assessment and Plan: continue levothyroxine normal TSH (11) Shoulder dislocation: Code(s): S43.006A - Unspecified dislocation of unspecified shoulder joint, initial encounter Status: Acute Assessment and Plan: chest x-ray migue
[2021-11-27 11:12] LABS: Glucose Point of Care 134 mg/dl (65-105)
--- NOTE | 2021-11-27 11:39 | PCNFU ---
Nutrition Follow-Up Complete: Inadequate oral intake related to mechanical ventilation as evidenced by need for tube feedings. goal; Patient to meet estimated nutritional needs. Patient is progressing towards goal. We will continue current goal. Pt current nutrition is Vital AF 1.2 at 55 ml/hr over 22hours. Last recorded weight is 46.5 kg-stable Bowel Motility:+BM reported 11/27 Labs Reviewed:Glu 123, Alb 3.2,BUN 31 Meds Noted:Solu Medrol, Flagyl, Versed, Synthroid, Atrovent, Fentanyl, Rocephin, Eliquis, Lipitor, Pepcid, Flagyl, vancomycin, Synthroid, Propofol 20 esd=744 kcals. Skin: Edematous Additional Notes: Patient remains on mechanical vent and tube feedings of Vital AF 1.2 at 55 ml/hr over 22 hours. tolerating feedings. Tube feeding is providing 1452 kcals/91 gms protein/981 ml water. Propofol providing an additional 255 kcals. Free water flush 30 ml q 4 hours. Agree with diet orders. Monitor in ICU rounds and reassessing every Friday and Friday.
[2021-11-27] MEDS: BUMETANIDE INJ 1 MG/4 ML VIAL IV PUSH (17:58)
[2021-11-28] VITALS (35 sets, daily range): BP systolic 115–139; BP diastolic 62–86; PULSE 75–164; RESP 16–27; TEMP 36.5–37.1; O2SAT 95–96
[2021-11-28] MEDS: ALBUTEROL SULFATE NEB 2.5 MG/0.5 ML INH 5 MG INHALATION ×4 (02:11→20:36)
[2021-11-28] MEDS: IPRATROPIUM BR 0.02% INH SOLN 0.5 MG/2.5 ML VIAL INHALATION ×4 (02:11→20:36)
--- NOTE | 2021-11-28 02:11 | PC.NURSE ---
0201 Pt , charge nurse aware, warehouse delivery manager notified.
[2021-11-28 04:33] LABS: Alveolar/Arterial O2 Gradient 75.6 mmHg; Base Excess ABG 6.2 mEq/l (+/-2.0); Carboxyhemoglobin 0.3 % THb (0-2.0); Device VENTILATOR; Fractional Inspired Oxygen 30 %; HCO3 ABG 30.4 mEq/l (22.0-26.0); Methemoglobin ABG 0.3 %THb (0-1.5); Modified Allen's Test Pass; Oxygen Content ABG 18.3 %vol (16.0-22.0); Oxygen Saturation ABG 97.3 % (95.0-100.0); Oxyhemoglobin 95.9 % THb (90.0-100.0); PCO2 ABG 41.8 mmHg (35.0-45.0); PO2 ABG 89.2 mmHg (80.0-100.0); PO2 FiO2 Ratio Arterial Blood 2.97 %; Reduced Hemoglobin 3.5 %THb (0-5.0); Site Drawn LEFT RADIAL; Total Hemoglobin 13.5 g/dL (12.0-18.0); pH ABG 7.479 (7.350-7.450)
[2021-11-28 04:34] LABS: Arterial Blood Gas PEEP 5 cmH2O; Arterial Blood Gas Tidal Volume 300 ml; Arterial Blood Gas Vent Mode CMV; Arterial Blood Gas Ventilator rate 18 /MIN
[2021-11-28 04:48] LABS: Basophils Percent Auto 0.1 % (0.2-1.2); Eosinophils Absolute Auto 0.4 K/mm3 (0-0.3); Hematocrit 39.3 % (37.0-47.0); Hemoglobin 12.8 g/dL (12.0-15.0); Immature Granulocyte Absolute 0.08 K/mm3 (0.00-0.031); Immature Granulocyte Percent A 0.6 % (0-0.5); Lymphocytes Absolute Auto 1.48 K/mm3 (0.9-3.2); Mean Corpuscular HGB Conc 32.6 g/dl (32-36); Mean Corpuscular Hemoglobin 31.3 pg (26-34); Mean Corpuscular Volume 96.1 fl (80-100); Mean Platelet Volume 11.6 fl (7.4-10.4); Monocytes Absolute Auto 1.4 K/mm3 (0.1-0.6); Monocytes Percent Auto 10.3 % (2.6-8.5); Neutrophils Absolute Auto 10.1 K/mm3 (1.3-6.7); Platelet Count Result 171 k/mm3 (150-375); Red Blood Count 4.09 M/mm3 (4.2-5.4); White Blood Count 13.5 K/mm3 (4.5-10.0)
[2021-11-28 04:53] LABS: Alanine Aminotransferase 19 U/L (4-35); Albumin Level 3.2 g/dL (3.5-5.1); Alkaline Phosphatase 66 U/L (38-126); Anion Gap 4 mmol/L (8-16); Aspartate Amino Transferase 20 U/L (14-36); Bilirubin,Total 0.9 mg/dL (0.2-1.3); Blood Urea Nitrogen 30 mg/dL (7-17); Calcium 9.3 mg/dL (8.4-10.2); Carbon Dioxide 34 mmol/L (22-30); Chloride 101 mmol/L (98-107); Estimated CRCL calculation 43 ml/min; Estimated Glomerular Filt Rate > 60; Glucose 114 mg/dL (65-110); Magnesium 2.1 mg/dL (1.6-2.3); Phosphorus 3.8 mg/dL (2.5-4.5); Potassium 3.8 mmol/L (3.4-5.0); Sodium 139 mmol/L (137-145)
[2021-11-28] MEDS: metroNIDAZOLE 250 MG TABLET 500 MG FEED TUBE ×3 (05:51→17:40)
[2021-11-28] MEDS: CENTRAL LINE FLUSH 10 ML IV PUSH ×3 (05:52→22:43)
[2021-11-28] MEDS: LEVOTHYROXINE SODIUM 112 MCG TABLET FEED TUBE (05:52)
[2021-11-28] MEDS: LEVOTHYROXINE SODIUM 25 MCG TABLET PO (05:53)
[2021-11-28] MEDS: PROPOFOL IV EMULSION 100 ML 9.66 MG IV CONT (05:53)
[2021-11-28] MEDS: FAMOTIDINE 20 MG/2 ML VIAL IV PUSH ×2 (08:05→21:03)
[2021-11-28] MEDS: METOPROLOL TARTRATE 25 MG TABLET PO ×2 (08:05→21:03)
[2021-11-28] MEDS: MINERAL OIL/WHITE PETROLATUM OINTMENT 1 APPLIC EACH EYE ×2 (08:05→21:03)
[2021-11-28] MEDS: ATORVASTATIN 20 MG TABLET FEED TUBE (08:05)
[2021-11-28] MEDS: APIXABAN 5 MG TABLET FEED TUBE ×2 (08:06→21:03)
[2021-11-28] MEDS: TOLNAFTATE 1% POWDER 45 GM BTL 1 APPLIC TOPICAL ×2 (08:06→21:11)
[2021-11-28] MEDS: ASPIRIN 81 MG CHEWABLE TABLET FEED TUBE (08:11)
[2021-11-28] MEDS: BUMETANIDE INJ 1 MG/4 ML VIAL IV PUSH ×2 (08:11→17:39)
[2021-11-28] MEDS: DORNASE ALFA INH SOLN 1 MG/ML 2.5 ML AMP 2.5 MG INHALATION ×2 (11:19→20:36)
--- NOTE | 2021-11-28 11:25 | PCFNICU ---
ICU Rounding Note: Pt current nutrition is Vital AF 1.2 at 55 ml/hr over 22 hours. Last recorded weight is 47.3 kg-stable Bowel Motility:FMS Labs Reviewed:Glu 114, BUN 30, Alb 3.2 Meds Noted:Bumex, Synthroid, Lipitor, Lopressor, Pepcid,Eliquis, Propofol 15 cler=979 kcals. Skin: edematous Additional Notes: Patient remains on mechanical vent and tube feedings of Vital AF 1.2 at 55 ml/hr over 22 hours and tolerating. Tube feedings are providing 1452 kcals/91 gms protein/981ml water with additional 191 kcals from propofol. Current meeting 100% of caloric needs/89% protein needs. Free water flush 30 ml q 4 hours. Agree with diet orders. Following daily in ICU rounds. Monitor pt. labs. medications, weight and oral intake every Friday and Friday.
--- NOTE | 2021-11-28 12:37 | WPDINTPN ---
Progress Note: A&P Assessment and Plan (1) Acute and chronic respiratory failure: Code(s): J96.20 - Acute and chronic respiratory failure, unspecified whether with hypoxia or hypercapnia Status: Acute Assessment and Plan: Acute on chronic Respiratory failure which is multifactorial and is secondary to left diaphragmatic paralysis, pneumonia, obstructive sleep apnea which is untreated and pulmonary fibrosis, also secondary to altered mental status from possible UTI 11/24/2021: and was extubated after spontaneous breathing trial normal RSBI, normal ABGs. Patient tolerated for 2 hours and then went into respiratory distress, tachypnea, tachycardia and elevated blood pressures. She was re-intubated for impending respiratory failure [id number]. - chest x-ray this morning Elevated left hemidiaphragm, evidence of multisegmental left lower lobe collapse. There is moderate amount of bilateral ill-defined pneumonia or edema. Probable small pleural effusions. There is no pneumothorax suspected. -will diurese with Bumex -started on Pulmozyme Continue bronchodilators -sedated with propofol infusion, maintain RASS of 0 to -2 Antibiotics was switched to vancomycin and cefepime on 11/26/2021. Will continue Flagyl to cover anaerobes, Blood cultures are negative x2, -urine cultures growing Klebsiella pneumoniae which is pansensitive (2) Pneumonia: Qualifiers: Laterality: bilateral Lung location: lower lobe of lung Pneumonia type: due to unspecified organism Qualified Code(s): J18.9 - Pneumonia, unspecified organism Code(s): J18.9 - Pneumonia, unspecified organism Status: Acute Assessment and Plan: see above (3) Diaphragmatic paralysis: Code(s): J98.6 - Disorders of diaphragm Status: Acute Assessment and Plan: This could be a reason why patient is failing her weaning trials (4) Pulmonary fibrosis: Code(s): J84.10 - Pulmonary fibrosis, unspecified Status: Acute Assessment and Plan: see above (5) Obstructive sleep apnea: Code(s): G47.33 - Obstructive sleep apnea (adult) (pediatric) Status: Acute Assessment and Plan: currently intubated (6) UTI (urinary tract infection): Code(s): N39.0 - Urinary tract infection, site not specified Status: Acute Assessment and Plan: Her urine culture is growing Klebsiella, on cefepime starting 11/26/2021 (7) Atrial fibrillation: Qualifiers: Atrial fibrillation type: paroxysmal Qualified Code(s): I48.0 - Paroxysmal atrial fibrillation Code(s): I48.91 - Unspecified atrial fibrillation Status: Acute Assessment and Plan: Patient went into AFib RVR overnight (11/23 and 11/24), was given metoprolol and patient converted to sinus rhythm. - have started patient on p.o. metoprolol, currently in sinus rhythm, rate controlled continue apixaban (8) CAD (coronary artery disease): Onset Date: 2012 Code(s): I25.10 - Atherosclerotic heart disease of [place] coronary artery without angina pectoris Status: Acute Assessment and Plan: continue apixaban and aspirin echocardiogram 11/23/2021 shows a EF of 55-60%, grade 3 diastolic dysfunction, mild aortic stenosis, no pulmonary hypertension, LV chamber is normal (9) Right hemiparesis: Code(s): G81.91 - Hemiplegia, unspecified affecting right dominant side Status: Acute Assessment and Plan: on aspirin and apixaban for past CVA for secondary prevention (10) Hypothyroid: Qualifiers: Hypothyroidism type: acquired Qualified Code(s): E03.9 - Hypothyroidism, unspecified Code(s): E03.9 - Hypothyroidism, unspecified Status: Acute Assessment and Plan: continue levothyroxine normal TSH (11) Shoulder dislocation: Code(s): S43.006A - Unspecified dislocation of unspecified shoulder joint, initial encounter Status: Acute
[2021-11-28] MEDS: PROPOFOL IV EMULSION 100 ML 7.25 MG IV CONT (15:38)
[2021-11-28] MEDS: METOPROLOL TARTRATE INJ 5 MG/5 ML VIAL 2.5 MG IV PUSH (17:39)
[2021-11-29] VITALS (34 sets, daily range): BP systolic 115–146; BP diastolic 61–80; PULSE 81–102; RESP 18–27; TEMP 36.7–37.2; O2SAT 93–96
[2021-11-29] MEDS: metroNIDAZOLE 250 MG TABLET 500 MG FEED TUBE ×5 (00:36→23:39)
[2021-11-29] MEDS: PROPOFOL IV EMULSION 100 ML 9.66 MG IV CONT ×3 (00:40→17:13)
[2021-11-29] MEDS: IPRATROPIUM BR 0.02% INH SOLN 0.5 MG/2.5 ML VIAL INHALATION ×4 (02:25→20:30)
[2021-11-29] MEDS: ALBUTEROL SULFATE NEB 2.5 MG/0.5 ML INH 5 MG INHALATION ×4 (02:25→20:30)
[2021-11-29 04:13] LABS: Estimated CRCL calculation 43 ml/min; Estimated Glomerular Filt Rate > 60; Magnesium 2.1 mg/dL (1.6-2.3); Phosphorus 3.7 mg/dL (2.5-4.5)
[2021-11-29 04:53] LABS: Alveolar/Arterial O2 Gradient 67.1 mmHg; Base Excess ABG 6.9 mEq/l (+/-2.0); Carboxyhemoglobin 0.4 % THb (0-2.0); Fractional Inspired Oxygen 30 %; HCO3 ABG 32.1 mEq/l (22.0-26.0); Methemoglobin ABG 0.3 %THb (0-1.5); Oxygen Content ABG 20.9 %vol (16.0-22.0); Oxygen Saturation ABG 97.2 % (95.0-100.0); Oxyhemoglobin 95.7 % THb (90.0-100.0); PCO2 ABG 47.5 mmHg (35.0-45.0); PO2 FiO2 Ratio Arterial Blood 3.03 %; Reduced Hemoglobin 3.6 %THb (0-5.0); Total Hemoglobin 15.5 g/dL (12.0-18.0); pH ABG 7.448 (7.350-7.450)
[2021-11-29 04:54] LABS: Arterial Blood Gas PEEP 5 cmH2O; Arterial Blood Gas Tidal Volume 300 ml; Arterial Blood Gas Vent Mode CMV; Arterial Blood Gas Ventilator rate 18 /MIN; Device VENTILATOR; Modified Allen's Test Pass; Site Drawn LEFT RADIAL
[2021-11-29] MEDS: CENTRAL LINE FLUSH 10 ML IV PUSH ×3 (05:30→23:39)
[2021-11-29] MEDS: LEVOTHYROXINE SODIUM 112 MCG TABLET FEED TUBE (05:30)
[2021-11-29] MEDS: LEVOTHYROXINE SODIUM 25 MCG TABLET PO (05:31)
[2021-11-29] MEDS: MINERAL OIL/WHITE PETROLATUM OINTMENT 1 APPLIC EACH EYE ×2 (08:36→20:41)
[2021-11-29] MEDS: TOLNAFTATE 1% POWDER 45 GM BTL 1 APPLIC TOPICAL ×2 (08:36→20:41)
[2021-11-29] MEDS: BUMETANIDE INJ 1 MG/4 ML VIAL IV PUSH ×2 (08:36→17:09)
[2021-11-29] MEDS: ATORVASTATIN 20 MG TABLET FEED TUBE (08:36)
[2021-11-29] MEDS: FAMOTIDINE 20 MG/2 ML VIAL IV PUSH ×2 (08:36→20:42)
[2021-11-29] MEDS: ASPIRIN 81 MG CHEWABLE TABLET FEED TUBE (08:36)
[2021-11-29] MEDS: METOPROLOL TARTRATE 25 MG TABLET PO ×2 (08:36→20:41)
[2021-11-29] MEDS: APIXABAN 5 MG TABLET FEED TUBE ×2 (08:36→20:41)
[2021-11-29] MEDS: DORNASE ALFA INH SOLN 1 MG/ML 2.5 ML AMP 2.5 MG INHALATION ×2 (10:00→20:30)
--- NOTE | 2021-11-29 11:10 | PCFNICU ---
ICU Rounding Note: Pt current nutrition is Vital AF 1.2 at 55 ml/hr over 22 hours. Last recorded weight is 77.3 kg-stable Bowel Motility:FMS Labs Reviewed:11/28 BUN 30, Glu 114 Meds Noted: Bumex, Synthroid, Lipitor, Lopressor, Pepcid,Eliquis, Propofol 20 jsro=740 kcals. Skin: WNL Additional Notes: Patient remains on mechanical vent and tube feedings of Vital AF 1.2 at 55 ml/hr over 22hours and tolerating. Propofol increased from 15 mics to 20 mics providing an additional 255 kcals. Free water flush 30 ml q 4 hours. Agree with diet orders. Following daily in ICU rounds. Monitor pt. labs. medications, weight and oral intake every Friday and Friday.
[2021-11-29 21:44] LABS: Vancomycin Trough 6.4 ug/mL (10.0-20.0)
[2021-11-30] VITALS (36 sets, daily range): BP systolic 115–144; BP diastolic 51–77; PULSE 87–146; RESP 18–24; TEMP 36.6–37.1; O2SAT 93–96
[2021-11-30] MEDS: ALBUTEROL SULFATE NEB 2.5 MG/0.5 ML INH 5 MG INHALATION ×4 (02:30→20:30)
[2021-11-30] MEDS: IPRATROPIUM BR 0.02% INH SOLN 0.5 MG/2.5 ML VIAL INHALATION ×4 (02:30→20:30)
[2021-11-30] MEDS: PROPOFOL IV EMULSION 100 ML 9.66 MG IV CONT ×3 (03:49→23:18)
[2021-11-30 04:31] LABS: Basophils Absolute Auto 0.1 K/mm3 (0.0-0.1); Basophils Percent Auto 0.4 % (0.2-1.2); Eosinophils Absolute Auto 0.4 K/mm3 (0-0.3); Eosinophils Percent Auto 2.5 % (0-4.4); Hematocrit 38.5 % (37.0-47.0); Hemoglobin 12.6 g/dL (12.0-15.0); Immature Granulocyte Absolute 0.11 K/mm3 (0.00-0.031); Immature Granulocyte Percent A 0.7 % (0-0.5); Lymphocytes Absolute Auto 1.59 K/mm3 (0.9-3.2); Lymphocytes Percent Auto 10.2 % (18.3-44.2); Mean Corpuscular HGB Conc 32.7 g/dl (32-36); Mean Corpuscular Volume 94.8 fl (80-100); Mean Platelet Volume 11.5 fl (7.4-10.4); Monocytes Absolute Auto 1.7 K/mm3 (0.1-0.6); Neutrophils Absolute Auto 11.8 K/mm3 (1.3-6.7); Neutrophils Percent Auto 75.2 % (45.5-73.1); Platelet Count Result 162 k/mm3 (150-375); Red Blood Count 4.06 M/mm3 (4.2-5.4); Red Cell Distribution Width 13.5 % (11.5-14.5); White Blood Count 15.6 K/mm3 (4.5-10.0)
[2021-11-30 04:43] LABS: Alanine Aminotransferase 21 U/L (4-35); Albumin Level 3.4 g/dL (3.5-5.1); Alkaline Phosphatase 78 U/L (38-126); Anion Gap 4 mmol/L (8-16); Aspartate Amino Transferase 23 U/L (14-36); Bilirubin,Total 0.7 mg/dL (0.2-1.3); Blood Urea Nitrogen 36 mg/dL (7-17); Carbon Dioxide 38 mmol/L (22-30); Chloride 95 mmol/L (98-107); Estimated CRCL calculation 59 ml/min; Estimated Glomerular Filt Rate > 60; Glucose 137 mg/dL (65-110); Potassium 3.3 mmol/L (3.4-5.0); Sodium 137 mmol/L (137-145)
[2021-11-30 05:38] LABS: Alveolar/Arterial O2 Gradient 77.6 mmHg; Base Excess ABG 4.8 mEq/l (+/-2.0); Carboxyhemoglobin 0.3 % THb (0-2.0); Fractional Inspired Oxygen 30 %; HCO3 ABG 29.3 mEq/l (22.0-26.0); Methemoglobin ABG 0.3 %THb (0-1.5); Oxygen Content ABG 17.8 %vol (16.0-22.0); Oxygen Saturation ABG 96.8 % (95.0-100.0); PO2 ABG 85.8 mmHg (80.0-100.0); PO2 FiO2 Ratio Arterial Blood 2.86 %; Reduced Hemoglobin 4.4 %THb (0-5.0); Total Hemoglobin 13.3 g/dL (12.0-18.0); pH ABG 7.452 (7.350-7.450)
[2021-11-30 05:39] LABS: Arterial Blood Gas PEEP 5 cmH2O; Arterial Blood Gas Vent Mode CMV; Arterial Blood Gas Ventilator rate 18 /MIN; Device VENTILATOR; Modified Allen's Test Unable to perform; Site Drawn LEFT RADIAL
[2021-11-30 05:40] LABS: Arterial Blood Gas Tidal Volume 300 ml
[2021-11-30] MEDS: metroNIDAZOLE 250 MG TABLET 500 MG FEED TUBE ×3 (06:03→17:15)
[2021-11-30] MEDS: LEVOTHYROXINE SODIUM 112 MCG TABLET FEED TUBE (06:04)
[2021-11-30] MEDS: LEVOTHYROXINE SODIUM 25 MCG TABLET PO (06:04)
[2021-11-30] MEDS: CENTRAL LINE FLUSH 10 ML IV PUSH ×3 (06:04→21:00)
[2021-11-30] MEDS: METOPROLOL TARTRATE 25 MG TABLET PO ×2 (08:19→20:05)
[2021-11-30] MEDS: ASPIRIN 81 MG CHEWABLE TABLET FEED TUBE (08:19)
[2021-11-30] MEDS: BUMETANIDE INJ 1 MG/4 ML VIAL IV PUSH ×2 (08:19→17:15)
[2021-11-30] MEDS: ATORVASTATIN 20 MG TABLET FEED TUBE (08:20)
[2021-11-30] MEDS: MINERAL OIL/WHITE PETROLATUM OINTMENT 1 APPLIC EACH EYE ×2 (08:20→20:05)
[2021-11-30] MEDS: FAMOTIDINE 20 MG/2 ML VIAL IV PUSH ×2 (08:20→20:04)
[2021-11-30] MEDS: TOLNAFTATE 1% POWDER 45 GM BTL 1 APPLIC TOPICAL ×2 (08:20→20:09)
[2021-11-30] MEDS: APIXABAN 5 MG TABLET FEED TUBE ×2 (08:20→20:09)
[2021-11-30] MEDS: POTASSIUM CHLORIDE 20 MEQ PACKET (FOR LIQUID) 40 MEQ FEED TUBE (08:22)
[2021-11-30] MEDS: KCL 40 MEQ/WATER 100 ML 100 ML 25 ML IVPB (08:23)
[2021-11-30] MEDS: DORNASE ALFA INH SOLN 1 MG/ML 2.5 ML AMP 2.5 MG INHALATION ×2 (08:47→20:30)
--- NOTE | 2021-11-30 11:44 | PCNFU ---
Nutrition Follow-Up Complete: Inadequate oral intake related to mechanical ventilation as evidenced by need for tube feedings. Goal: Patient to meet estimated nutritional needs. We will continue current goal. Pt current nutrition is Vital AF 1.2 at 55 ml/hr over 22 hours. Last recorded weight is 75.9 kg Bowel Motility:FMS Labs Reviewed:Glu 137, BUN 36, Alb 3.4 Meds Noted:Bumex, Synthroid, Lipitor, Lopressor, Pepcid,Eliquis,Precedex, Vancomycin, Propofol 20 lqzv=010 kcals. Skin: WNL Additional Notes: Patient remains on mechanical vent and tube feedings of Vital AF 1.2 at 55 ml/hr over 22hours. Current tube feeding providing 1452 kcals/91 gms protein/981 ml water. Propofol providing an additional 255 kcals. Free water flush 30 ml q 4 hours. Agree with diet orders. MD to speak with family regarding plan of care. Following in ICU rounds. Monitor pt. labs. medications, weight and oral intake every Friday and Friday.
--- NOTE | 2021-11-30 13:07 | P.PNINT_ITS ---
Progress Note: A&P Assessment and Plan (1) Acute and chronic respiratory failure: Code(s): J96.20 - Acute and chronic respiratory failure, unspecified whether with hypoxia or hypercapnia Status: Acute Assessment and Plan: Acute on chronic Respiratory failure which is multifactorial and is secondary to left diaphragmatic paralysis, pneumonia, obstructive sleep apnea which is untreated and pulmonary fibrosis, also secondary to altered mental status from possible UTI -patient was initially intubated from 11/18/2021 to 11/24/2021 11/24/2021: and was extubated after spontaneous breathing trial normal RSBI, normal ABGs. Patient tolerated for 2 hours and then went into respiratory distress, tachypnea, tachycardia and elevated blood pressures. She was re- intubated for impending respiratory failure 11/24/2021. - chest x-ray this morning Elevated left hemidiaphragm, evidence of multisegmental left lower lobe collapse. There is moderate amount of bilateral ill-defined pneumonia or edema. Probable small pleural effusions. There is no pneumothorax suspected. -will continue diurese with Bumex -continue Pulmozyme Continue bronchodilators -sedated with propofol infusion, maintain RASS of 0 to -2 Antibiotics was switched to vancomycin and cefepime on 11/26/2021. Will continue Flagyl to cover anaerobes, 11/17/2021 Blood cultures are negative x2, -11/17/2021 urine cultures growing Klebsiella pneumoniae which is pansensitive (2) Pneumonia: Qualifiers: Laterality: bilateral Lung location: lower lobe of lung Pneumonia type: due to unspecified organism Qualified Code(s): J18.9 - Pneumonia, unspecified organism Code(s): J18.9 - Pneumonia, unspecified organism Status: Acute Assessment and Plan: see above (3) Diaphragmatic paralysis: Code(s): J98.6 - Disorders of diaphragm Status: Acute Assessment and Plan: This could be a reason why patient is failing her weaning trials (4) Pulmonary fibrosis: Code(s): J84.10 - Pulmonary fibrosis, unspecified Status: Acute Assessment and Plan: see above (5) Obstructive sleep apnea: Code(s): G47.33 - Obstructive sleep apnea (adult) (pediatric) Status: Acute Assessment and Plan: currently intubated (6) UTI (urinary tract infection): Code(s): N39.0 - Urinary tract infection, site not specified Status: Acute Assessment and Plan: Her urine culture is growing Klebsiella, on cefepime starting 11/26/2021 (7) Atrial fibrillation: Qualifiers: Atrial fibrillation type: paroxysmal Qualified Code(s): I48.0 - Paroxysmal atrial fibrillation Code(s): I48.91 - Unspecified atrial fibrillation Status: Acute Assessment and Plan: Patient went into AFib RVR overnight (11/23 and 11/24), was given metoprolol and patient converted to sinus rhythm. - have started patient on p.o. metoprolol, currently in sinus rhythm, rate controlled continue apixaban (8) CAD (coronary artery disease): Onset Date: 2012 Code(s): I25.10 - Atherosclerotic heart disease of [place] coronary artery without angina pectoris Status: Acute Assessment and Plan: continue apixaban and aspirin echocardiogram 11/23/2021 shows a EF of 55-60%, grade 3 diastolic dysfunction, mild aortic stenosis, no pulmonary hypertension, LV chamber is normal (9) Right hemiparesis: Code(s): G81.91 - Hemiplegia, unspecified affecting right dominant side Status: Acute Assessment and Plan: on aspirin
[2021-12-01] VITALS (17 sets, daily range): BP systolic 109–152; BP diastolic 68–89; PULSE 50–101; RESP 16–26; TEMP 36–36.9; O2SAT 70–94
[2021-12-01] MEDS: metroNIDAZOLE 250 MG TABLET 500 MG FEED TUBE ×2 (00:56→06:41)
[2021-12-01] MEDS: ALBUTEROL SULFATE NEB 2.5 MG/0.5 ML INH 5 MG INHALATION ×2 (02:05→09:05)
[2021-12-01] MEDS: IPRATROPIUM BR 0.02% INH SOLN 0.5 MG/2.5 ML VIAL INHALATION ×2 (02:06→09:05)
[2021-12-01 05:35] LABS: Alveolar/Arterial O2 Gradient 142.6 mmHg; Base Excess ABG 8.4 mEq/l (+/-2.0); Carboxyhemoglobin 0.3 % THb (0-2.0); Fractional Inspired Oxygen 30 %; HCO3 ABG 32.5 mEq/l (22.0-26.0); Methemoglobin ABG 0.4 %THb (0-1.5); Oxygen Content ABG 23.2 %vol (16.0-22.0); Oxygen Saturation ABG 97.2 % (95.0-100.0); PCO2 ABG 42.3 mmHg (35.0-45.0); PO2 ABG 85.9 mmHg (80.0-100.0); PO2 FiO2 Ratio Arterial Blood 2.86 %; Reduced Hemoglobin 3.3 %THb (0-5.0); Total Hemoglobin 17.2 g/dL (12.0-18.0)
[2021-12-01 05:36] LABS: Device VENTILATOR; Modified Allen's Test Pass; Site Drawn LEFT RADIAL; pH ABG 7.504 (7.350-7.450)
[2021-12-01 05:37] LABS: Arterial Blood Gas PEEP 5 cmH2O; Arterial Blood Gas Tidal Volume 300 ml; Arterial Blood Gas Vent Mode CMV; Arterial Blood Gas Ventilator rate 18 /MIN
[2021-12-01] MEDS: CENTRAL LINE FLUSH 10 ML IV PUSH (06:41)
[2021-12-01] MEDS: LEVOTHYROXINE SODIUM 25 MCG TABLET PO (06:41)
[2021-12-01] MEDS: LEVOTHYROXINE SODIUM 112 MCG TABLET FEED TUBE (06:41)
[2021-12-01 07:03] LABS: Basophils Absolute Auto 0.1 K/mm3 (0.0-0.1); Basophils Percent Auto 0.4 % (0.2-1.2); Eosinophils Absolute Auto 0.5 K/mm3 (0-0.3); Hematocrit 38.3 % (37.0-47.0); Hemoglobin 12.8 g/dL (12.0-15.0); Immature Granulocyte Percent A 0.6 % (0-0.5); Lymphocytes Absolute Auto 1.41 K/mm3 (0.9-3.2); Lymphocytes Percent Auto 8.9 % (18.3-44.2); Mean Corpuscular HGB Conc 33.4 g/dl (32-36); Mean Corpuscular Hemoglobin 31.9 pg (26-34); Mean Corpuscular Volume 95.5 fl (80-100); Mean Platelet Volume 11.9 fl (7.4-10.4); Monocytes Absolute Auto 1.5 K/mm3 (0.1-0.6); Monocytes Percent Auto 9.1 % (2.6-8.5); Neutrophils Absolute Auto 12.4 K/mm3 (1.3-6.7); Platelet Count Result 156 k/mm3 (150-375); Red Blood Count 4.01 M/mm3 (4.2-5.4); Red Cell Distribution Width 13.5 % (11.5-14.5); White Blood Count 15.9 K/mm3 (4.5-10.0)
[2021-12-01 07:12] LABS: Alanine Aminotransferase 19 U/L (4-35); Albumin Level 3.4 g/dL (3.5-5.1); Alkaline Phosphatase 79 U/L (38-126); Anion Gap 6 mmol/L (8-16); Aspartate Amino Transferase 22 U/L (14-36); Bilirubin,Total 0.3 mg/dL (0.2-1.3); Blood Urea Nitrogen 34 mg/dL (7-17); Calcium 8.9 mg/dL (8.4-10.2); Carbon Dioxide 34 mmol/L (22-30); Chloride 94 mmol/L (98-107); Estimated CRCL calculation 76 ml/min; Estimated Glomerular Filt Rate > 60; Glucose 131 mg/dL (65-110); Magnesium 2.1 mg/dL (1.6-2.3); Phosphorus 3.1 mg/dL (2.5-4.5); Potassium 3.5 mmol/L (3.4-5.0); Sodium 134 mmol/L (137-145)
[2021-12-01] MEDS: DORNASE ALFA INH SOLN 1 MG/ML 2.5 ML AMP 2.5 MG INHALATION (09:05)
[2021-12-01] MEDS: ASPIRIN 81 MG CHEWABLE TABLET FEED TUBE (09:12)
[2021-12-01] MEDS: APIXABAN 5 MG TABLET FEED TUBE (09:12)
[2021-12-01] MEDS: METOPROLOL TARTRATE 25 MG TABLET PO (09:12)
[2021-12-01] MEDS: FAMOTIDINE 20 MG/2 ML VIAL IV PUSH (09:12)
[2021-12-01] MEDS: ATORVASTATIN 20 MG TABLET FEED TUBE (09:12)
[2021-12-01] MEDS: TOLNAFTATE 1% POWDER 45 GM BTL 1 APPLIC TOPICAL (09:13)
[2021-12-01] MEDS: POTASSIUM CHLORIDE 20 MEQ PACKET (FOR LIQUID) 40 MEQ FEED TUBE (09:13)
[2021-12-01] MEDS: MINERAL OIL/WHITE PETROLATUM OINTMENT 1 APPLIC EACH EYE (09:13)
--- NOTE | 2021-12-01 12:26 | WPDINTPN ---
Progress Note: A&P Assessment and Plan (1) Acute and chronic respiratory failure: Code(s): J96.20 - Acute and chronic respiratory failure, unspecified whether with hypoxia or hypercapnia Status: Acute Assessment and Plan: Acute on chronic Respiratory failure which is multifactorial and is secondary to left diaphragmatic paralysis, pneumonia, obstructive sleep apnea which is untreated and pulmonary fibrosis, also secondary to altered mental status from possible UTI -patient was initially intubated from 11/18/2021 to 11/24/2021 11/24/2021: and was extubated after spontaneous breathing trial normal RSBI, normal ABGs. Patient tolerated for 2 hours and then went into respiratory distress, tachypnea, tachycardia and elevated blood pressures. She was re-intubated for impending respiratory failure 11/24/2021. - chest x-ray this morning Elevated left hemidiaphragm, evidence of multisegmental left lower lobe collapse. There is moderate amount of bilateral ill-defined pneumonia or edema. Probable small pleural effusions. There is no pneumothorax suspected. -will continue diurese with Bumex -continue Pulmozyme Continue bronchodilators -sedated with propofol infusion, maintain RASS of 0 to -2 Antibiotics was switched to vancomycin and cefepime on 11/26/2021. Will continue Flagyl to cover anaerobes, 11/17/2021 Blood cultures are negative x2, -11/17/2021 urine cultures growing Klebsiella pneumoniae which is pansensitive (2) Pneumonia: Qualifiers: Laterality: bilateral Lung location: lower lobe of lung Pneumonia type: due to unspecified organism Qualified Code(s): J18.9 - Pneumonia, unspecified organism Code(s): J18.9 - Pneumonia, unspecified organism Status: Acute Assessment and Plan: see above (3) Diaphragmatic paralysis: Code(s): J98.6 - Disorders of diaphragm Status: Acute Assessment and Plan: This could be a reason why patient is failing her weaning trials (4) Pulmonary fibrosis: Code(s): J84.10 - Pulmonary fibrosis, unspecified Status: Acute Assessment and Plan: see above (5) Obstructive sleep apnea: Code(s): G47.33 - Obstructive sleep apnea (adult) (pediatric) Status: Acute Assessment and Plan: currently intubated (6) UTI (urinary tract infection): Code(s): N39.0 - Urinary tract infection, site not specified Status: Acute Assessment and Plan: Her urine culture is growing Klebsiella, on cefepime starting 11/26/2021 (7) Atrial fibrillation: Qualifiers: Atrial fibrillation type: paroxysmal Qualified Code(s): I48.0 - Paroxysmal atrial fibrillation Code(s): I48.91 - Unspecified atrial fibrillation Status: Acute Assessment and Plan: Patient went into AFib RVR overnight (11/23 and 11/24), was given metoprolol and patient converted to sinus rhythm. - have started patient on p.o. metoprolol, currently in sinus rhythm, rate controlled continue apixaban (8) CAD (coronary artery disease): Onset Date: 2012 Code(s): I25.10 - Atherosclerotic heart disease of [place] coronary artery without angina pectoris Status: Acute Assessment and Plan: continue apixaban and aspirin echocardiogram 11/23/2021 shows a EF of 55-60%, grade 3 diastolic dysfunction, mild aortic stenosis, no pulmonary hypertension, LV chamber is normal (9) Right hemiparesis: Code(s): G81.91 - Hemiplegia, unspecified affecting right dominant side Status: Acute Assessment and Plan: on aspirin and apixaban for past CVA for secondary prevention (10) Hypothyroid: Qualifiers: Hypothyroidism type: acquired Qualified Code(s): E03.9 - Hypothyroidism, unspecified Code(s): E03.9 - Hypothyroidism, unspecified Status: Acute Assessment and Plan: continue levothyroxine normal TSH (11) Shoulder dislocation: Code(s): S43.006A -
[2021-12-01] MEDS: LORazepam INJ (*CRX) 2 MG/ML VIAL IV PUSH ×3 (13:09→20:32)
[2021-12-01] MEDS: MORPHINE SULFATE INJ (*CRX) 10 MG/ML AMP 5 MG IV PUSH (13:09)
--- NOTE | 2021-12-01 13:25 | PC.NURSE ---
Patient extubated at 1310 per RT. OG tube removed with ET tube at 1310. To continue with comfort care measures.
[2021-12-01] MEDS: MORPHINE SULFATE (*CRX) 2 MG/ML INJ IV PUSH ×2 (15:16→20:32)
--- NOTE | 2021-12-01 16:49 | PC.NURSE ---
SBAR sent to [address] [place] [address] at 1644. Patient to go to [address] [place] [address] room 253.
--- NOTE | 2021-12-01 17:58 | PC.NURSE ---
Report given to SRIRAM Helton with [address] [place] [address] at 1708. All questions answered and plan of care reviewed. Patient to go to [address] [place] [address] room 253.
[2021-12-02] MEDS: MORPHINE SULFATE (*CRX) 2 MG/ML INJ IV PUSH ×15 (00:11→23:29)
[2021-12-02] MEDS: LORazepam INJ (*CRX) 2 MG/ML VIAL IV PUSH ×6 (00:12→18:17)
[2021-12-02 08:00] VITALS: PULSE 109; O2SAT 75
[2021-12-02 09:15] VITALS: RESP 24
[2021-12-02 11:46] VITALS: RESP 20; O2SAT 66
[2021-12-02] MEDS: ATROPINE SULFATE 1% OPHTH SOLN 5 ML BOTTLE SUBLINGUAL (14:46)
--- NOTE | 2021-12-02 15:45 | PM.IMPN ---
Progress Note: A&P Assessment and Plan (1) Acute and chronic respiratory failure: Code(s): J96.20 - Acute and chronic respiratory failure, unspecified whether with hypoxia or hypercapnia Status: Acute Assessment and Plan: Acute on chronic Respiratory failure which is multifactorial and is secondary to left diaphragmatic paralysis, pneumonia, obstructive sleep apnea which is untreated and pulmonary fibrosis, also secondary to altered mental status from possible UTI -patient was initially intubated from 11/18/2021 to 11/24/2021 11/24/2021: and was extubated after spontaneous breathing trial normal RSBI, normal ABGs. Patient tolerated for 2 hours and then went into respiratory distress, tachypnea, tachycardia and elevated blood pressures. She was re-intubated for impending respiratory failure 11/24/2021. Patient continued with bronchodilators Pulmozyme Bumex for diuresis. IV antibiotics for pneumonia 11/17/2021 Blood cultures are negative x2, -11/17/2021 urine cultures growing Klebsiella pneumoniae which is pansensitive Eventually after discussion with family improvement in comfort measures were made on 12/01/2021. And hence was palliatively extubated. (2) Pneumonia: Qualifiers: Laterality: bilateral Lung location: lower lobe of lung Pneumonia type: due to unspecified organism Qualified Code(s): J18.9 - Pneumonia, unspecified organism Code(s): J18.9 - Pneumonia, unspecified organism Status: Acute Assessment and Plan: see above (3) Diaphragmatic paralysis: Code(s): J98.6 - Disorders of diaphragm Status: Acute Assessment and Plan: This could be a reason why patient is failing her weaning trials (4) Pulmonary fibrosis: Code(s): J84.10 - Pulmonary fibrosis, unspecified Status: Acute Assessment and Plan: see above (5) Obstructive sleep apnea: Code(s): G47.33 - Obstructive sleep apnea (adult) (pediatric) Status: Acute (6) UTI (urinary tract infection): Code(s): N39.0 - Urinary tract infection, site not specified Status: Acute Assessment and Plan: Her urine culture is growing Klebsiella, on cefepime starting 11/26/2021 now off due to comfort measures implementation (7) Atrial fibrillation: Qualifiers: Atrial fibrillation type: paroxysmal Qualified Code(s): I48.0 - Paroxysmal atrial fibrillation Code(s): I48.91 - Unspecified atrial fibrillation Status: Acute Assessment and Plan: Patient went into AFib RVR overnight (11/23 and 11/24), was given metoprolol and patient converted to sinus rhythm. - have started patient on p.o. metoprolol, currently in sinus rhythm, rate controlled continue apixaban (8) CAD (coronary artery disease): Onset Date: 2012 Code(s): I25.10 - Atherosclerotic heart disease of [place] coronary artery without angina pectoris Status: Acute Assessment and Plan: continue apixaban and aspirin echocardiogram 11/23/2021 shows a EF of 55-60%, grade 3 diastolic dysfunction, mild aortic stenosis, no pulmonary hypertension, LV chamber is normal (9) Right hemiparesis: Code(s): G81.91 - Hemiplegia, unspecified affecting right dominant side Status: Acute Assessment and Plan: on aspirin and apixaban for past CVA for secondary prevention (10) Hypothyroid: Qualifiers: Hypothyroidism type: acquired Qualified Code(s): E03.9 - Hypothyroidism, unspecified Code(s): E03.9 - Hypothyroidism, unspecified Status: Acute Assessment and Plan: continue levothyroxine normal TSH (11) Shoulder dislocation: Code(s): S43.006A - Unspecified dislocation of unspecified shoulder joint, initial encounter Status: Acute Assessment and Plan: chest x-ray showed right glenohumeral joint dislocation with humeral head fracture Dr. Lentz spoke to patient's and he states that this may be o
[2021-12-02 23:03] VITALS: BP 115/59; PULSE 121; RESP 22; TEMP 37.6; O2SAT 44
[2021-12-03] MEDS: LORazepam INJ (*CRX) 2 MG/ML VIAL IV PUSH (00:05)
--- NOTE | 2021-12-03 09:00 | P.DN_ITS ---
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 Pt brought in for acute respiratory failure secondary to pneumonia. Intubated on ventilator in ICU. She was eventually extubated on 11/24/2021, but only lasted for 2 hours and then at to be reintubated on 11/24/2021 for impending respiratory failure as she was tachypneic, tachycardic with elevated blood pressures. Se remained intubated and due to poor prognosis, family discussion was made and institution of comfort measures done. She was eventaully extubated and while inpatient. Additional Data Confirmation of as documented by pronouncing clinician: Pupillary Reflex, Palpable Pulses, Response to Stimuli, Heart Tones and Breath Sounds Name of Provider Notified: Dr. 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
== END 2021-12-03 02:10 | disposition expired | DRG 207 ==
LOC: ANHED 11-18 01:42 → ANHICU 11-18 05:20 → ANH2MED 12-03 02:08 → ANHICU 12-04 08:22 → ANH2MED 12-04 08:22
PROVIDERS: Family Medicine; Internal Medicine; Admitting Provider Internal Medicine; Emergency Provider Emergency Medicine; PCP Family Medicine; Visit Provider Internal Medicine
DX: J18.9 Pneumonia, unspecified organism (principal); J96.22 Acute and chronic respiratory failure with hypercapnia; J96.21 Acute and chronic respiratory failure with hypoxia; I42.7 Cardiomyopathy due to drug and external agent; I69.351 Hemiplegia and hemiparesis following cerebral infarction affecting right dominant side; N39.0 Urinary tract infection, site not specified; T45.1X5S Adverse effect of antineoplastic and immunosuppressive drugs, sequela; J70.1 Chronic and other pulmonary manifestations due to radiation; Z79.01 Long term (current) use of anticoagulants; Z79.82 Long term (current) use of aspirin; Z88.0 Allergy status to penicillin; I25.10 Atherosclerotic heart disease of native coronary artery without angina pectoris; Z95.5 Presence of coronary angioplasty implant and graft; I50.9 Heart failure, unspecified; Z86.718 Personal history of other venous thrombosis and embolism; Z85.72 Personal history of non-Hodgkin lymphomas; E03.9 Hypothyroidism, unspecified; I48.0 Paroxysmal atrial fibrillation; Y84.2 Radiological procedure and radiotherapy as the cause of abnormal reaction of the patient, or of later complication, without mention of misadventure at the time of the procedure; I27.20 Pulmonary hypertension, unspecified; Z90.5 Acquired absence of kidney; R47.81 Slurred speech; G47.33 Obstructive sleep apnea (adult) (pediatric); Z91.19 Patient's noncompliance with other medical treatment and regimen; J98.6 Disorders of diaphragm; S43.004A Unspecified dislocation of right shoulder joint, initial encounter; W19.XXXA Unspecified fall, initial encounter; Y93.9 Activity, unspecified; Y92.9 Unspecified place or not applicable; Y99.9 Unspecified external cause status; J84.10 Pulmonary fibrosis, unspecified; B96.1 Klebsiella pneumoniae [K. pneumoniae] as the cause of diseases classified elsewhere; Z51.5 Encounter for palliative care
CPT/HCPCS: 31500; 36415; 36569; 36600; 51701; 51702; 70450; 71045; 71275; 73200; 74177; 80048; 80053; 80202; 81001; 82375; 82565; 82805; 82948; 83050; 83605; 83735; 83880; 84100; 84443; 84484; 85025; 85027; 85055; 85610; 85730; 87040; 87077; 87086; 87088; 87186; 87502; 93005; 93306; 94002; 94003; 94640; 96365; 96366; 96367; 96375; 97165; 99285; A9270; C1751; C9803; G0378; J0330; J0456; J0692; J0696; J1120; J1940; J2060; J2250; J2270; J2704; J2930; J3010; J3370; J3480; J7030; J7040; P9045; P9047; Q9957; Q9967; U0003; U0005